=== PATIENT | male | born 1945 | race Caucasian/White ===

== ENCOUNTER 2017-10-01 00:01 | Observation (INO) | payer OTHER ==
[~2017-10-01] VITALS: Ht 175.3 cm; Wt 112.6 kg
[~2017-10-01 00:01] MED LIST: ACEBUTCAFT PO; ACEDIPPM; ACEDIPPM PO; ACET325; ACET325 PO; ASPI81CH PO; ATOR40TA PO; Antivert25 MG PO; BLOOD PRESSURE MED; BUME1 PO; CEPH500 PO; CETI5 PO; CLOB.05TC TOP; CLON.2 PO; CLOP75 PO; CYCL10 PO; DIAZ5 PO; DIBU30TO PR; DOXE25; DOXY100 PO; ENDOCET 2.5-321 EACH PO; FINA5 PO; FLUSAL1005; Fludrocortison0.1 MG PO; HYDACE5 PO; HYDCHL25; MELO7.5 PO; METO50 PO; NAPR220 PO; NAPR500 PO; NIFE60ER PO; NIFE90ER; NITR.4SL; NORT25 PO; Naproxen375 MG PO; OXYACE5T PO; PARO20; POTCHL10ER PO; PRED10 PO; PRED20 PO; PROM25 PO; Percocet 5-3251 EACH PO; Prinivil10 MG PO; RANI150 PO; RXCEPH500 PO; RXHYDACE; RXHYDACE PO; Robaxin-750750 MG PO; SIMV10 PO; SKIEMOTL12 TOP; SULTRIDS PO; TAMS.4ER PO; TRAM50 PO; Ultram50 MG PO; [UNRECOGNIZED DRUG - OTHER]
[2017-10-01 00:22] LABS: BASOPHILS ABSOLUTE AUTO 0.07 K/mm3 (0.00-0.23); BASOPHILS PERCENT AUTO 1 % (0-2); EOSINOPHILS ABSOLUTE AUTO 0.15 K/mm3 (0.00-0.68); EOSINOPHILS PERCENT AUTO 2 % (0-6); Hematocrit 41.7 % (37.0-53.0); Hemoglobin 14.4 g/dL (13.5-17.5); IMMATURE GRAN ABSOLUTE AUTO 0.08 K/mm3 (0.00-0.10); IMMATURE GRAN PERCENT AUTO 1 % (0-1); LYMPHOCYTES ABSOLUTE AUTO 2.62 K/mm3 (0.84-5.20); LYMPHOCYTES PERCENT AUTO 26 % (21-46); MONOCYTES ABSOLUTE AUTO 0.92 K/mm3 (0.16-1.47); MONOCYTES PERCENT AUTO 9 % (4-13); Mean Corpuscular HGB 32.7 pg (26.0-34.0); Mean Corpuscular HGB Conc 34.5 g/dL (31.5-36.5); Mean Corpuscular Volume 95 fL (80-100); Mean Platelet Volume 9.7 fL (9.1-12.4); NEUTROPHILS ABSOLUTE AUTO 6.21 K/mm3 (1.96-9.15); NEUTROPHILS PERCENT AUTO 62 % (41-73); Platelet Count 292 K/mm3 (150-400); RDW Coefficient Variation 12.4 % (11.7-14.2); RDW Standard Deviation 43.2 fL (35.1-46.3); White Blood Cell Count 10.05 K/mm3 (4.00-11.30)
[2017-10-01 02:40] LABS: Alanine Aminotransfer (ALT/SGP 51 U/L (12-78); Albumin, Blood 3.7 g/dL (3.4-5.0); Albumin/Globulin Ratio 0.9 (0.8-1.8); Anion Gap 9 mmol/L (6-16); Aspartate Aminotrans (AST/SGOT 33 U/L (12-37); Bilirubin, Total 0.4 mg/dL (0.1-1.0); Blood Urea Nitrogen 14 mg/dL (8-24); Bun/Creatinine Ratio 14.7 (12.0-20.0); CO2, Blood 23 mmol/L (21-32); Calcium, Blood 8.7 mg/dL (8.5-10.1); Chloride, Blood 108 mmol/L (98-108); Creatinine, Blood 0.95 mg/dL (0.60-1.20); Glomerular Filtration Rate >60 (60-); Glucose, Blood 113 mg/dL (70-99); Potassium, Blood 3.6 mmol/L (3.5-5.5); Sodium, Blood 140 mmol/L (136-145); Total Protein, Blood 7.7 g/dL (6.4-8.2)
[2017-10-01 02:41] LABS: Alk Phos 95 U/L (50-136); Troponin I <0.015 ng/mL (0.000-0.040)
== END 2017-10-01 18:31 | disposition home or self-care (01) ==
LOC: ER 00:01 → MEDS 00:02
PROVIDERS: Emergency Medicine
DX: R07.9 Chest pain, unspecified (principal); I10 Essential (primary) hypertension; E78.5 Hyperlipidemia, unspecified; R42 Dizziness and giddiness; R11.0 Nausea; R29.898 Other symptoms and signs involving the musculoskeletal system; I25.10 Atherosclerotic heart disease of native coronary artery without angina pectoris; F32.9 Major depressive disorder, single episode, unspecified; Z79.82 Long term (current) use of aspirin; Z79.01 Long term (current) use of anticoagulants; Z90.49 Acquired absence of other specified parts of digestive tract; Z79.899 Other long term (current) drug therapy; Z88.0 Allergy status to penicillin; Z88.5 Allergy status to narcotic agent; Z88.8 Allergy status to other drugs, medicaments and biological substances; Z95.5 Presence of coronary angioplasty implant and graft; Z87.891 Personal history of nicotine dependence
CPT/HCPCS: 36415; 71275; 74175; 80053; 83690; 84484; 85025; 93005; 93010; 96361; 96374; 96376; 97112; 97162; 99285; G0378; G8978; G8979; J3010; J7030; Q9967

== ENCOUNTER 2018-01-26 00:10 | Emergency (ER) | payer OTHER, SELFPAY ==
[~2018-01-26] VITALS: Ht 193 cm; Wt 104.3 kg
[2018-01-26] MEDS ORDERED: FINA5 PO (00:26)
[2018-01-26] MEDS ORDERED: NAPR500 PO (00:26)
[2018-01-26] MEDS ORDERED: TRAM50 PO (00:27)
[2018-01-26] MEDS ORDERED: ATOR40TA PO (00:28)
[2018-01-26 00:45] LABS: BASOPHILS ABSOLUTE AUTO 0.05 K/mm3 (0.00-0.23); BASOPHILS PERCENT AUTO 1 % (0-2); EOSINOPHILS PERCENT AUTO 3 % (0-6); Hemoglobin 13.8 g/dL (13.5-17.5); IMMATURE GRAN ABSOLUTE AUTO 0.05 K/mm3 (0.00-0.10); IMMATURE GRAN PERCENT AUTO 1 % (0-1); LYMPHOCYTES ABSOLUTE AUTO 2.58 K/mm3 (0.84-5.20); LYMPHOCYTES PERCENT AUTO 25 % (21-46); MONOCYTES ABSOLUTE AUTO 1.09 K/mm3 (0.16-1.47); MONOCYTES PERCENT AUTO 11 % (4-13); Mean Corpuscular HGB 32.3 pg (26.0-34.0); Mean Corpuscular HGB Conc 33.7 g/dL (31.5-36.5); Mean Corpuscular Volume 96 fL (80-100); Mean Platelet Volume 9.5 fL (9.1-12.4); NEUTROPHILS ABSOLUTE AUTO 6.24 K/mm3 (1.96-9.15); NEUTROPHILS PERCENT AUTO 61 % (41-73); Platelet Count 254 K/mm3 (150-400); RDW Coefficient Variation 12.7 % (11.7-14.2); RDW Standard Deviation 45.2 fL (35.1-46.3); Red Blood Cell Count 4.27 M/mm3 (4.30-5.90); White Blood Cell Count 10.31 K/mm3 (4.00-11.30)
[2018-01-26 01:00] LABS: Alanine Aminotransfer (ALT/SGP 57 U/L (12-78); Albumin, Blood 3.5 g/dL (3.4-5.0); Albumin/Globulin Ratio 0.9 (0.8-1.8); Alk Phos 85 U/L (50-136); Anion Gap 9 mmol/L (6-16); Aspartate Aminotrans (AST/SGOT 29 U/L (12-37); Bilirubin, Total 0.4 mg/dL (0.1-1.0); Blood Urea Nitrogen 18 mg/dL (8-24); Bun/Creatinine Ratio 17.6 (12.0-20.0); CO2, Blood 24 mmol/L (21-32); Calcium, Blood 8.5 mg/dL (8.5-10.1); Chloride, Blood 107 mmol/L (98-108); Creatinine, Blood 1.02 mg/dL (0.60-1.20); Globulin, Blood 4.1 g/dL (2.2-4.0); Glomerular Filtration Rate >60 (60-); Glucose, Blood 164 mg/dL (70-99); Potassium, Blood 3.5 mmol/L (3.5-5.5); Sodium, Blood 140 mmol/L (136-145); Total Protein, Blood 7.6 g/dL (6.4-8.2); Troponin I <0.015 ng/mL (0.000-0.040)
== END 2018-01-26 03:55 | disposition home or self-care (01) ==
LOC: ER 00:10
PROVIDERS: Emergency Medicine
DX: R07.89 Other chest pain (principal); I10 Essential (primary) hypertension; I25.10 Atherosclerotic heart disease of native coronary artery without angina pectoris; E78.00 Pure hypercholesterolemia, unspecified; E78.5 Hyperlipidemia, unspecified; Z88.1 Allergy status to other antibiotic agents; Z88.0 Allergy status to penicillin; Z91.048 Other nonmedicinal substance allergy status; Z88.5 Allergy status to narcotic agent; Z79.899 Other long term (current) drug therapy; Z79.01 Long term (current) use of anticoagulants; Z87.891 Personal history of nicotine dependence
CPT/HCPCS: 36415; 71046; 80053; 84484; 85025; 99285-25

== ENCOUNTER 2018-06-28 12:40 | Emergency (ER) | payer OTHER ==
[~2018-06-28] VITALS: Ht 185.4 cm; Wt 106.6 kg
[2018-06-28 13:10] LABS: BASOPHILS ABSOLUTE AUTO 0.09 K/mm3 (0.00-0.23); BASOPHILS PERCENT AUTO 1 % (0-2); EOSINOPHILS ABSOLUTE AUTO 0.18 K/mm3 (0.00-0.68); EOSINOPHILS PERCENT AUTO 2 % (0-6); Hematocrit 43.7 % (37.0-53.0); Hemoglobin 14.5 g/dL (13.5-17.5); IMMATURE GRAN ABSOLUTE AUTO 0.15 K/mm3 (0.00-0.10); IMMATURE GRAN PERCENT AUTO 2 % (0-1); LYMPHOCYTES ABSOLUTE AUTO 1.97 K/mm3 (0.84-5.20); LYMPHOCYTES PERCENT AUTO 22 % (21-46); MONOCYTES ABSOLUTE AUTO 0.73 K/mm3 (0.16-1.47); MONOCYTES PERCENT AUTO 8 % (4-13); Mean Corpuscular HGB 32.4 pg (26.0-34.0); Mean Corpuscular HGB Conc 33.2 g/dL (31.5-36.5); Mean Corpuscular Volume 98 fL (80-100); Mean Platelet Volume 9.8 fL (9.1-12.4); NEUTROPHILS ABSOLUTE AUTO 5.77 K/mm3 (1.96-9.15); NEUTROPHILS PERCENT AUTO 65 % (41-73); Platelet Count 253 K/mm3 (150-400); RDW Coefficient Variation 12.7 % (11.7-14.2); RDW Standard Deviation 45.3 fL (35.1-46.3); Red Blood Cell Count 4.47 M/mm3 (4.30-5.90); White Blood Cell Count 8.89 K/mm3 (4.00-11.30)
[2018-06-28 13:26] LABS: Alanine Aminotransfer (ALT/SGP 89 U/L (12-78); Albumin, Blood 3.6 g/dL (3.4-5.0); Albumin/Globulin Ratio 0.9 (0.8-1.8); Alk Phos 103 U/L (50-136); Anion Gap 9 mmol/L (6-16); Aspartate Aminotrans (AST/SGOT 65 U/L (12-37); Bilirubin, Total 0.5 mg/dL (0.1-1.0); Blood Urea Nitrogen 18 mg/dL (8-24); Bun/Creatinine Ratio 20.6 (12.0-20.0); CO2, Blood 24 mmol/L (21-32); Calcium, Blood 8.4 mg/dL (8.5-10.1); Chloride, Blood 108 mmol/L (98-108); Creatinine, Blood 0.88 mg/dL (0.60-1.20); Globulin, Blood 4.2 g/dL (2.2-4.0); Glomerular Filtration Rate >60 (60-); Glucose, Blood 139 mg/dL (70-99); Potassium, Blood 4.1 mmol/L (3.5-5.5); Sodium, Blood 141 mmol/L (136-145); Total Protein, Blood 7.8 g/dL (6.4-8.2)
[2018-06-28] MEDS ORDERED: IBUP600 PO (16:39)
[2018-06-28] MEDS ORDERED: Norco 10-325 T1 EACH PO (16:39)
== END 2018-06-28 17:43 | disposition home or self-care (01) ==
LOC: ER 12:40
PROVIDERS: Emergency Medicine
DX: S32.019A Unspecified fracture of first lumbar vertebra, initial encounter for closed fracture (principal); S32.029A Unspecified fracture of second lumbar vertebra, initial encounter for closed fracture; R51 Headache; R07.89 Other chest pain; I10 Essential (primary) hypertension; E78.5 Hyperlipidemia, unspecified; Z88.0 Allergy status to penicillin; Z88.5 Allergy status to narcotic agent; Z88.6 Allergy status to analgesic agent; Z88.1 Allergy status to other antibiotic agents; Z79.899 Other long term (current) drug therapy; Z87.891 Personal history of nicotine dependence; W01.198A Fall on same level from slipping, tripping and stumbling with subsequent striking against other object, initial encounter
CPT/HCPCS: 36415; 70450; 71260; 72125; 74177; 80053; 85025; 93005; 93010; 96361; 96374-59; 96375; 96376; 99284-25; J1170; J2405; J7030; Q9967

== ENCOUNTER 2018-07-01 09:21 | Emergency (ER) | payer OTHER ==
[~2018-07-01] VITALS: Ht 185.4 cm; Wt 106.6 kg
[~2018-07-01 09:21] MED LIST changes: +IBUP600 PO; +Norco 10-325 T1 EACH PO
[2018-07-01 10:23] LABS: BASOPHILS ABSOLUTE AUTO 0.04 K/mm3 (0.00-0.23); BASOPHILS PERCENT AUTO 0 % (0-2); EOSINOPHILS ABSOLUTE AUTO 0.18 K/mm3 (0.00-0.68); EOSINOPHILS PERCENT AUTO 2 % (0-6); Hematocrit 41.5 % (37.0-53.0); Hemoglobin 13.8 g/dL (13.5-17.5); IMMATURE GRAN ABSOLUTE AUTO 0.07 K/mm3 (0.00-0.10); IMMATURE GRAN PERCENT AUTO 1 % (0-1); LYMPHOCYTES ABSOLUTE AUTO 1.32 K/mm3 (0.84-5.20); LYMPHOCYTES PERCENT AUTO 14 % (21-46); MONOCYTES ABSOLUTE AUTO 0.83 K/mm3 (0.16-1.47); MONOCYTES PERCENT AUTO 9 % (4-13); Mean Corpuscular HGB 32.2 pg (26.0-34.0); Mean Corpuscular HGB Conc 33.3 g/dL (31.5-36.5); Mean Corpuscular Volume 97 fL (80-100); NEUTROPHILS ABSOLUTE AUTO 7.02 K/mm3 (1.96-9.15); NEUTROPHILS PERCENT AUTO 74 % (41-73); Platelet Count 247 K/mm3 (150-400); RDW Coefficient Variation 12.8 % (11.7-14.2); Red Blood Cell Count 4.28 M/mm3 (4.30-5.90); White Blood Cell Count 9.46 K/mm3 (4.00-11.30)
[2018-07-01 10:37] LABS: Anion Gap 9 mmol/L (6-16); Blood Urea Nitrogen 18 mg/dL (8-24); Bun/Creatinine Ratio 19.6 (12.0-20.0); CO2, Blood 25 mmol/L (21-32); Calcium, Blood 8.4 mg/dL (8.5-10.1); Chloride, Blood 107 mmol/L (98-108); Creatinine, Blood 0.92 mg/dL (0.60-1.20); Glomerular Filtration Rate >60 (60-); Glucose, Blood 122 mg/dL (70-99); Sodium, Blood 141 mmol/L (136-145)
== END 2018-07-01 12:11 | disposition home or self-care (01) ==
LOC: ER 09:21
PROVIDERS: Emergency Medicine
DX: S32.019D Unspecified fracture of first lumbar vertebra, subsequent encounter for fracture with routine healing (principal); S32.029D Unspecified fracture of second lumbar vertebra, subsequent encounter for fracture with routine healing; W19.XXXD Unspecified fall, subsequent encounter; Z88.0 Allergy status to penicillin; Z88.8 Allergy status to other drugs, medicaments and biological substances; Z88.1 Allergy status to other antibiotic agents; Z79.899 Other long term (current) drug therapy; Z87.891 Personal history of nicotine dependence; E78.5 Hyperlipidemia, unspecified
CPT/HCPCS: 36415; 80048; 85025; 96374; 96375; 99284-25; J2405; J3010

== ENCOUNTER 2018-07-24 14:34 | Emergency (ER) | payer OTHER ==
[~2018-07-24] VITALS: Ht 182.9 cm; Wt 104.3 kg
[2018-07-24 14:57] LABS: BASOPHILS ABSOLUTE AUTO 0.05 K/mm3 (0.00-0.23); BASOPHILS PERCENT AUTO 1 % (0-2); EOSINOPHILS ABSOLUTE AUTO 0.19 K/mm3 (0.00-0.68); EOSINOPHILS PERCENT AUTO 2 % (0-6); Hematocrit 42.8 % (37.0-53.0); Hemoglobin 14.5 g/dL (13.5-17.5); IMMATURE GRAN ABSOLUTE AUTO 0.04 K/mm3 (0.00-0.10); IMMATURE GRAN PERCENT AUTO 0 % (0-1); LYMPHOCYTES ABSOLUTE AUTO 1.64 K/mm3 (0.84-5.20); LYMPHOCYTES PERCENT AUTO 18 % (21-46); MONOCYTES PERCENT AUTO 10 % (4-13); Mean Corpuscular HGB 33.1 pg (26.0-34.0); Mean Corpuscular HGB Conc 33.9 g/dL (31.5-36.5); Mean Corpuscular Volume 98 fL (80-100); NEUTROPHILS ABSOLUTE AUTO 6.13 K/mm3 (1.96-9.15); NEUTROPHILS PERCENT AUTO 69 % (41-73); Platelet Count 276 K/mm3 (150-400); RDW Coefficient Variation 12.7 % (11.7-14.2); RDW Standard Deviation 45.6 fL (35.1-46.3); Red Blood Cell Count 4.38 M/mm3 (4.30-5.90); White Blood Cell Count 8.95 K/mm3 (4.00-11.30)
[2018-07-24 15:09] LABS: Alanine Aminotransfer (ALT/SGP 55 U/L (12-78); Albumin, Blood 3.9 g/dL (3.4-5.0); Albumin/Globulin Ratio 0.9 (0.8-1.8); Alk Phos 148 U/L (50-136); Anion Gap 7 mmol/L (6-16); Aspartate Aminotrans (AST/SGOT 51 U/L (12-37); Bilirubin, Total 0.7 mg/dL (0.1-1.0); Blood Urea Nitrogen 17 mg/dL (8-24); Bun/Creatinine Ratio 17.7 (12.0-20.0); CO2, Blood 25 mmol/L (21-32); Chloride, Blood 108 mmol/L (98-108); Creatinine, Blood 0.96 mg/dL (0.60-1.20); Globulin, Blood 4.3 g/dL (2.2-4.0); Glomerular Filtration Rate >60 (60-); Glucose, Blood 96 mg/dL (70-99); Potassium, Blood 4.2 mmol/L (3.5-5.5); Sodium, Blood 140 mmol/L (136-145); Total Protein, Blood 8.2 g/dL (6.4-8.2); Troponin I <0.015 ng/mL (0.000-0.040)
[2018-07-24 15:39] LABS: Source, Urine Clean Catch
[2018-07-24 15:46] LABS: Appearance, Urine Clear (Clear); Bilirubin, Urine Neg (Neg); Blood, Urine 2+ (Neg); Color, Urine Yellow (P-Yellow); Glucose Qualitative, Urine Neg (Neg); Ketones, Urine Neg (Neg); Leukocyte Esterase, Urine Neg (Neg); Nitrite, Urine Neg (Neg); Protein, Urine Neg (Neg); Urobilinogen, Urine NORM (Normal)
[2018-07-24 16:01] LABS: U Amphetamine Screen Not Detected; U Barbituate Screen Not Detected; U Benzodiazapine Screen Not Detected; U Buprenorphine Screen Not Detected; U Cannabinoids Screen Not Detected; U Cocaine Screen Not Detected; U Methadone Screen Not Detected; U Methamphetamine Screen Not Detected; U Opiates Screen DETECTED; U Oxycodone Screen Not Detected; U Phencyclidine Screen Not Detected; U Propoxyphene Screen Not Detected
[2018-07-24 16:06] LABS: International Normalized Ratio 1.03; Prothrombin Time Results 10.9 Sec (9.7-11.5)
[2018-07-24 16:20] LABS: Bacteria Few /hpf; Squamous Epithelial Cells Not Seen /hpf (Few); White Blood Cells, Urine Not Seen /hpf (0-5)
[2018-07-24 17:01] LABS: Influenza A Negative (NEGATIVE); Influenza B Negative (NEGATIVE)
== END 2018-07-24 18:10 | disposition home or self-care (01) ==
LOC: ER 14:34
PROVIDERS: Emergency Medicine; Physician Assistant
DX: R41.82 Altered mental status, unspecified (principal); I10 Essential (primary) hypertension; E78.5 Hyperlipidemia, unspecified; I25.10 Atherosclerotic heart disease of native coronary artery without angina pectoris; Z88.0 Allergy status to penicillin; Z88.5 Allergy status to narcotic agent; Z79.899 Other long term (current) drug therapy; Z87.891 Personal history of nicotine dependence
CPT/HCPCS: 36415; 70450; 71046; 80053; 81001; 83880; 84484; 85025; 85610; 87804; 93005; 93010; 96374; 96375; 99285-25; C9113; G0480; J2405

== ENCOUNTER 2019-02-10 23:29 | Inpatient (IN) | payer OTHER ==
[~2019-02-10] VITALS: Ht 185.4 cm; Wt 107.0 kg
[~2019-02-10 23:29] MED LIST changes: +LISI5 PO; -Prinivil10 MG PO
[2019-02-10 23:50] LABS: Calcium, Ionized (POC) 1.12 mmol/L (1.10-1.46); Chloride (POC) 102 mmol/L (98-108); Creatinine (POC) 1.1 mg/dL (0.8-1.3); Glucose (ISTAT POC) 243 mg/dL (70-99); Potassium (POC) 3.6 mmol/L (3.5-5.5); Sodium (POC) 140 mmol/L (135-148); Total CO2 (POC) 25 mmol/L (21-32)
[2019-02-11 00:02] LABS: Hematocrit 43.6 % (37.0-53.0); Hemoglobin 14.8 g/dL (13.5-17.5); Mean Corpuscular HGB 33.7 pg (26.0-34.0); Mean Corpuscular HGB Conc 33.9 g/dL (31.5-36.5); Mean Corpuscular Volume 99 fL (80-100); Mean Platelet Volume 10.1 fL (9.1-12.4); NRBC ABSOLUTE 0.02 K/mm3 (0.00-0.02); NRBC Auto 0.2 /100 WBC (0.0-0.2); Platelet Count 283 K/mm3 (150-400); RDW Coefficient Variation 12.7 % (11.7-14.2); RDW Standard Deviation 46.6 fL (35.1-46.3); Red Blood Cell Count 4.39 M/mm3 (4.30-5.90); White Blood Cell Count 10.41 K/mm3 (4.00-11.30)
[2019-02-11 00:19] LABS: International Normalized Ratio 0.98; Prothrombin Time Results 10.4 Sec (9.7-11.5)
[2019-02-11 00:22] LABS: Alanine Aminotransfer (ALT/SGP 55 U/L (12-78); Albumin, Blood 3.6 g/dL (3.4-5.0); Albumin/Globulin Ratio 0.8 (0.8-1.8); Alk Phos 96 U/L (50-136); Anion Gap 9 mmol/L (6-16); Aspartate Aminotrans (AST/SGOT 38 U/L (12-37); Bilirubin, Total 0.2 mg/dL (0.1-1.0); Blood Urea Nitrogen 11 mg/dL (8-24); Bun/Creatinine Ratio 11.2 (12.0-20.0); CHOL/HDL RATIO 5.6; CO2, Blood 26 mmol/L (21-32); Calcium, Blood 8.9 mg/dL (8.5-10.1); Chloride, Blood 106 mmol/L (98-108); Cholesterol 168 mg/dL (50-200); Creatinine, Blood 0.98 mg/dL (0.60-1.20); Globulin, Blood 4.4 g/dL (2.2-4.0); Glomerular Filtration Rate >60 (60-); Glucose, Blood 237 mg/dL (70-99); HDL Cholesterol 30 mg/dL (>39); LDL/HDL RATIO 3.4; Low Density Lipoprotein Chol 101 mg/dL (0-110); Magnesium, Blood 2.1 mg/dL (1.6-2.4); Potassium, Blood 3.6 mmol/L (3.5-5.5); Sodium, Blood 141 mmol/L (136-145); Triglycerides 183 mg/dL (30-160); Troponin I <0.015 ng/mL (0.000-0.040); Very Low Density Lipoprot Chol 36 mg/dL (6-32)
--- NOTE | 2019-02-11 02:45 | NUR ---
ADMISSION PT ARRIVES TO PCU4 FROM ER VIA GURNEY. PT IS CURRENTLY SLEEPING AND DIFFICULT TO WAKE AND STARTLES AWAKE, SWINGING ARMS WHEN SHOULDER IS SHAKEN. UPON WAKING, PT IS IRRITABLE, BUT AOX4. PT REPORTS SOME DIZZINESS WITH MOVEMENT WHEN SET UP TO EDGE OF BED FOR TRANSFER. PT IS WOBBLING AROUND AND MAKING CIRCLES WITH UPPER BODY WHEN SITTING UPRIGHT. BLOOD PRESSURE IS ELEVATED WITH SBP OF 147 WHEN TAKEN IN SITTING POSITION. PT IS LAID BACK DOWN ON GURNEY AND SLID TO HOSPITAL BED FOR SAFETY. CURRENTLY DENYING PAIN AND STATING THAT HE "JUST WANTS TO SLEEP". PT EDUCATED ON ADMIT PROCESS AND NECESSARY QUESTIONS AND ASSESSMENT THAT WILL TAKE PLACE; PT VERBALIZES UNDERSTANDING. LUNG SOUNDS ARE CLEAR IN UPPER LOBES WITH DIMINISHED BASES. PT NOTED TO HAVE L FACIAL DROOP AND MORE WEAKNESS TO L EXTREMETIES THAN R. REPORTS HX OF CVA IN 2012. PT ORIENTED TO ROOM AND CALL LIGHT SYSTEM, ENCOURAGED TO CALL FOR ASSISTANCE WITH CARE. PT ENCOURAGED TO SEND HOME ANY UNNECESSARY BELONGINGS. SON AT BEDSIDE. WILL CONTINUE WITH ADMISSION AND MONITORING. BED IN LOW POSITION, CALL LIGHT IN REACH. BED ALARM SET FOR SAFETY.
[2019-02-11] MEDS ORDERED: CETI5 PO (03:00)
[2019-02-11] MEDS ORDERED: Fludrocortison0.1 MG PO (03:01)
--- NOTE | 2019-02-11 03:45 | NUR ---
CHEST PAIN PT REPORTING PAIN TO L CHEST THAT "FEELS LIKE I AM BEING STABBED WITH A KNIFE". PT DENIES RADIATION AND REPORTS THAT NOTHING MAKES IN BETTER AND NOTHING MAKES IT WORSE. STATES THAT THE CHEST PAIN HAS "BEEN COMING AND GOING FOR THE LAST FOUR MONTHS". UNABLE TO SPECIFY IF ANYTHING MAKES IT BETTER OR WORSE AT HOME, KEEPS REPEATING THAT "IT FEELS LIKE STABBING PAIN". RATES PAIN A 5/10 ON PAIN SCALE. VSS. NITRO TABLET ADMINISTERED SL. PAIN DECREASED TO 1 WITHIN FIVE MINUTES, VITAL SIGNS REMAINED STABLE AND PT DENIED NEED FOR SECOND NITRO. STATES THAT HE "JUST WANTS TO GO TO SLEEP AND THE PAIN IS NEARLY GONE". PT QUICKLY FALLS ASLEEP. FAMILY REMAINS AT BEDSIDE. FAMILY EDUCATED ASSOCIATE PROFESSOR OF GEOLOGY LIGHT USE TO ASSIST PATIENT IF NECESSARY. WILL CONTINUE WITH MONITORING.
--- NOTE | 2019-02-11 06:10 | NUR ---
SHIFT SUMMARY PT HAS REMAINED AOX4 THROUGHOUT SHIFT. VSS. COOPERATIVE WITH CARE. NO FURTHER ACUTE EPISODES OF CHEST PAIN THROUGHOUT REMAINDER OF SHIFT. PT DENIES FURTHER DIZZINESS. PT CONTINUES TO SLEEP WITH FAMILY AT BESIDE AND ABLE TO SHIFT SELF IN BED. NO OTHER CHANGES FROM INITIAL ASSESSMENT. WILL CONTINUE TO MONITOR AND REPORT TO ONCOMING SHIFT RN. BED IN LOW POSITION, CALL LIGHT IN REACH. BED ALARM SET FOR SAFETY.
--- NOTE | 2019-02-11 07:53 | NUR ---
NURSING PCU DAYSHIFT: Assumed care of pt at approx 0700. A/O, fairly cooperative w/care, [place]. Mild general weakness noted though able to reposition and complete ADL's in bed independently. Denies any pain at rest. SKin is intact w/no breakdown noted. Tele in place, NSR, no c/o CP/pressure at this time, trace RLE edema. L/S fairly cta t/o, O2 sat upper 90's on RA, denies dyspnea. Abd mildly distended which pt states is normal, BT+, voiding using urinal. PIV x1, NS infusing at 75cc/hr x1L. Son currently at bedside. Pt and family deny any current needs or questions regarding plan of care. Awaiting rounding from PMD. Call light in reach, pt able to use w/o difficulty. Cont to monitor for any changes.
[2019-02-11 08:40] LABS: Hematocrit 38.9 % (37.0-53.0); Hemoglobin 12.9 g/dL (13.5-17.5); Mean Corpuscular HGB 33.2 pg (26.0-34.0); Mean Corpuscular HGB Conc 33.2 g/dL (31.5-36.5); Mean Corpuscular Volume 100 fL (80-100); Mean Platelet Volume 10.1 fL (9.1-12.4); Platelet Count 252 K/mm3 (150-400); RDW Coefficient Variation 12.9 % (11.7-14.2); RDW Standard Deviation 47.2 fL (35.1-46.3); Red Blood Cell Count 3.89 M/mm3 (4.30-5.90); White Blood Cell Count 9.25 K/mm3 (4.00-11.30)
[2019-02-11 08:59] LABS: CPK Creatine Kinase 38 U/L (39-308); Troponin I <0.015 ng/mL (0.000-0.040)
[2019-02-11 09:03] LABS: Alanine Aminotransfer (ALT/SGP 43 U/L (12-78); Albumin, Blood 3.1 g/dL (3.4-5.0); Albumin/Globulin Ratio 0.8 (0.8-1.8); Alk Phos 75 U/L (50-136); Anion Gap 7 mmol/L (6-16); Aspartate Aminotrans (AST/SGOT 32 U/L (12-37); Bilirubin, Total 0.4 mg/dL (0.1-1.0); Blood Urea Nitrogen 10 mg/dL (8-24); Bun/Creatinine Ratio 10.2 (12.0-20.0); CO2, Blood 26 mmol/L (21-32); Calcium, Blood 8.4 mg/dL (8.5-10.1); Chloride, Blood 109 mmol/L (98-108); Creatinine, Blood 0.98 mg/dL (0.60-1.20); Globulin, Blood 3.9 g/dL (2.2-4.0); Glomerular Filtration Rate >60 (60-); Glucose, Blood 136 mg/dL (70-99); Potassium, Blood 3.9 mmol/L (3.5-5.5); Sodium, Blood 142 mmol/L (136-145)
[2019-02-11 16:44] LABS: Source, Urine Clean Catch
--- NOTE | 2019-02-11 16:44 | NUR ---
NURSING PCU DAYSHIFT SUMMARY: No significant changes noted t/o shift. Pt continues to experience dizziness and unsteadiness w/position changes, requires assistance w/standing and ambulating. Seen by PMD, new d/o received. Eval completed by PT/OT, staff assist and walker required for ambulation. D/O for stress test received, resting portion completed this afternoon, plan for lexiscan tomorrow afternoon. Pt to be NPO after breakfast 02/12 for 2nd portion of stress test. Pt c/o short period of CP in the afternoon which resolved w/rest, no rhythm changes noted during that time. Pt has remained pleasant, in good spirits, and fairly cooperative w/care though is not compliant with calling for assistance to stand for toileting. Bed alarm remains set for safety purposes. No s/s of acute distress at this time, cont to monitor until rpt is given to NOC RN.
[2019-02-11 16:55] LABS: Bilirubin, Urine Neg (Neg); Blood, Urine 1+ (Neg); Glucose Qualitative, Urine Neg (Neg); Ketones, Urine Neg (Neg); Leukocyte Esterase, Urine Neg (Neg); Nitrite, Urine Neg (Neg); Protein, Urine Neg (Neg); Specific Gravity, Urine 1.015 (1.003-1.022); Urobilinogen, Urine NORM (Normal)
[2019-02-11 17:00] LABS: Appearance, Urine Clear (Clear); Color, Urine Yellow (P-Yellow)
[2019-02-11 17:01] LABS: Red Blood Cells, Urine 0-2 /hpf (0-2); Squamous Epithelial Cells Rare /hpf (Few); White Blood Cells, Urine Not Seen /hpf (0-5)
[2019-02-11 17:02] LABS: Bacteria Rare /hpf
[2019-02-11 17:07] LABS: CPK Creatine Kinase 39 U/L (39-308)
[2019-02-11 17:07] LABS: U Amphetamine Screen Not Detected; U Barbituate Screen Not Detected; U Benzodiazapine Screen Not Detected; U Buprenorphine Screen Not Detected; U Cannabinoids Screen Not Detected; U Cocaine Screen Not Detected; U Methadone Screen Not Detected; U Methamphetamine Screen Not Detected; U Opiates Screen Not Detected; U Oxycodone Screen Not Detected; U Phencyclidine Screen Not Detected; U Propoxyphene Screen Not Detected
[2019-02-11 17:20] LABS: Troponin I <0.015 ng/mL (0.000-0.040)
--- NOTE | 2019-02-12 05:45 | NUR ---
Shift Summary VSS this shift, pt remains alert and oriented, no changes to mentation noted. Pt cooperative with care, pleasant and cheerful this shift. Pt with impulsivity and non compliance with instruction to call before standing; pt setting off bed alarm this shift. Pt needs assistance with voiding with urinal at bedside. Pt ambulated to bathroom with FWW this shift with moderately steady gait. Pt cleaned with bedbath this shift. Sleeping with CPAP with home settings, independant with CPAP. Pt with no CP this shift. Denies pain in general. denies SOB. Pt in no apparent sign of distress. Plan is to have pt NPO after breakfast, pt aware. Provider called once this shift for tylenol order d/t pt complaints of headache. Tylenon 650mg x1 ordered; pain relieved. Bed alarm on, call light in reach, bed is low and locked. Will continue monitoring and providing care per orders until day RN assumes care.
--- NOTE | 2019-02-12 08:05 | NUR ---
NURSING PCU DAYSHIFT: Assumed care of pt at approx 0700. A/O, [place], very pleasant and fairly cooperative w/care. Denies any pain/discomfort at rest. Skin is fragile though intact w/no breakdown noted. Transfers/ambulates w/one staff assist. Tele in place, NSR w/BBB, BP stable, no noted edema, no c/o CP/pressure. L/S cta t/o, O2 sat mid 90's on RA, denies dyspnea, no noted cough. Abd mildly distended which pt states is normal, BT+, voiding w/o difficulty. 20g PIV present in RAC, s/l. Pt denies any current needs or questions regarding plan of care. Son resting at bedside. Bed alarm set for safety purposes. Plan for second portion of stress test this afternoon, NPO after breakfast. Awaiting rounding from PMD, call light in reach, cont to monitor for any changes.
--- NOTE | 2019-02-12 18:14 | NUR ---
NURSING PCU DAYSHIFT SUMMARY: VS remained stable t/o the shift, respiratory and cardiac status unchanged. Pt NPO after breakfast for stress test which was completed at approx 1430. Pt tolerated well. Results received, call placed to PMD to review imaging report results. No c/o CP t/o shift. Orthostatic VS completed, SBP 111 while lying, 139 while sitting, and 144 while standing. HR remained 73-83 during orthos. When standing pt began to experience dizziness and needed to sit back on edge of bed. Recovered quickly. Pt spent majority of the shift visiting w/friends/family. Remains in good spirits. No s/s of acute distress at this time. Call light in reach though bed alarm set for patient safety. Cont to monitor until rpt is given to BYRON RN.
--- NOTE | 2019-02-13 04:38 | NUR ---
SHIFT SUMMARY: CARDIOLOGY TO CONSULT THIS AM, PATIENT VSS, CALL LIGHT WITHIN REACH, NO FLUIDS OR FOOD SINCE 0000. BED LOW AND LOCKED.
--- NOTE | 2019-02-13 16:46 | NUR ---
SHIFT SUMMARY No acute changes this shift. Pt with VSS, although orthostatic bp positive. Pt asymptomatic, not dizzy or lightheaded with little ambulation. pt working with PT and OT this shift, pt complaint of mild dizziness at the very end of both exercises. Pt sat down, and dizziness resolved. Pt remains alert and oriented although impulsive, bed alarm on and pt education multiple times this shift about safety and need to call before using urinal at bedside. Pt complaint of mild headache at appros 1630, MD Rodriguez called and orders recieved for tylenol. Pt with family at bedside for majority of this shift. Pt pleasant, calm and cooperative with care. No events on tele, pt with no CP or pressure. Plan, per dr. mukherjee is to monitor BP with new BPmedications introduced this shift. Possible DC in the AM if pt is asx. Pt in no apparent sign of distress, able to make needs known, conversing appropriately. Pt expressing frustration to this RN about "being in the hosptial this long". pt verbalized understanding of need to monitor and is calm and compliant. Family is supportive of pt and involved in care. Will continue to monitor and provide care per orders until change of shift.
--- NOTE | 2019-02-14 04:32 | NUR ---
SHIFT SUMMARY: PATIENT VSS, NO CHANGES OVERNIGHT, BED LOW AND LOCKED, CALL LIGHT WITHIN REACH AND BED EXIT ALARM ON.
--- NOTE | 2019-02-14 07:56 | NUR ---
ASSUMED CARE REPORT FROM ERIC LIZARRAGA. ORTHOSTATIC BP'S TAKEN. SEE ELECTRONIC CHARTING. TEACHING ABOUT TAKING HIS BP DAILY BEFORE TAKING HIS BP MEDS
--- NOTE | 2019-02-14 09:00 | NUR ---
PATIENT SLEEPING WITH CPAP MASK ON. AM MEDS HELD UNTIL HE IS AWAKE
--- NOTE | 2019-02-14 09:54 | NUR ---
PHYSICAL THERAPY IN. AMBULATED PATIENT
--- NOTE | 2019-02-14 11:01 | NUR ---
PATIENT AMBULATING IN [place] WITH WALKER DENIES ANY DIZZINESS
[2019-02-14] MEDS ORDERED: ASPI81CH PO (11:36)
[2019-02-14] MEDS ORDERED: Isosorbide Mono30 MG PO (11:36)
[2019-02-14] MEDS ORDERED: METO25ER PO (11:38)
[2019-02-14] MEDS ORDERED: NITR.4SL SL (11:39)
--- NOTE | 2019-02-14 11:54 | NUR ---
PATIENT DISCHARGED. PIV REMOVED FOR SHOWER. INSTRUCTIONS ABOUT BP MEDS GIVEN AGAIN.
--- NOTE | 2019-02-14 12:35 | NUR ---
DISCHARGE INSTRUCTIONS GIVEN AND ACKNOWLEDGED BY SON. PATIENT AMBULATED OUT USING WALKER WITH BAD CREDIT COLLECTOR WALKING ALONG SIDE. SON WILL PULL CAR AROUND TO PATIENT LABOR DELIVERY RN. SON WILL CALL PCU AND ASK FOR THIS RN OR MATERIAL WORKER IF HE HAS ANY QUESTIONS.
== END 2019-02-14 12:53 | disposition home or self-care (01) | DRG 305 ==
LOC: ER 23:29 → PCU 23:30
PROVIDERS: Emergency Medicine; ADMIT Internal Medicine
DX: I16.0 Hypertensive urgency (principal); I42.9 Cardiomyopathy, unspecified; I10 Essential (primary) hypertension; G89.29 Other chronic pain; M54.9 Dorsalgia, unspecified; E78.5 Hyperlipidemia, unspecified; G47.33 Obstructive sleep apnea (adult) (pediatric); Z87.891 Personal history of nicotine dependence; I25.10 Atherosclerotic heart disease of native coronary artery without angina pectoris; Z95.5 Presence of coronary angioplasty implant and graft; N40.0 Benign prostatic hyperplasia without lower urinary tract symptoms; Z79.02 Long term (current) use of antithrombotics/antiplatelets; E86.0 Dehydration; R94.39 Abnormal result of other cardiovascular function study; J44.9 Chronic obstructive pulmonary disease, unspecified; Z79.82 Long term (current) use of aspirin
CPT/HCPCS: 36415; 51798; 71275; 74175; 78452; 80047; 80053; 80061; 81001; 82550; 82947; 83036; 83735; 83880; 84484; 85014; 85027; 85610; 85730; 86850; 86900; 86901; 93005; 93010; 93017; 93306; 94760; 94762; 96361; 96372; 96374-59; 97110; 97112; 97161; 97166; 97530; 97535; 99285-25; A9270; A9500; G0378; J0706; J1650; J2405; J2785; J7030; Q9967

== ENCOUNTER 2019-02-19 13:33 | Emergency (ER) | payer OTHER ==
[~2019-02-19] VITALS: Ht 185.4 cm; Wt 104.3 kg
[~2019-02-19 13:33] MED LIST changes: +Isosorbide Mono30 MG PO; +METO25ER PO; +NITR.4SL SL
[2019-02-19 13:59] LABS: BASOPHILS ABSOLUTE AUTO 0.05 K/mm3 (0.00-0.23); BASOPHILS PERCENT AUTO 0 % (0-2); EOSINOPHILS ABSOLUTE AUTO 0.17 K/mm3 (0.00-0.68); EOSINOPHILS PERCENT AUTO 1 % (0-6); Hematocrit 42.1 % (37.0-53.0); Hemoglobin 13.9 g/dL (13.5-17.5); IMMATURE GRAN ABSOLUTE AUTO 0.15 K/mm3 (0.00-0.10); IMMATURE GRAN PERCENT AUTO 1 % (0-1); LYMPHOCYTES ABSOLUTE AUTO 1.16 K/mm3 (0.84-5.20); LYMPHOCYTES PERCENT AUTO 8 % (21-46); MONOCYTES ABSOLUTE AUTO 0.85 K/mm3 (0.16-1.47); MONOCYTES PERCENT AUTO 6 % (4-13); Mean Corpuscular HGB 33.3 pg (26.0-34.0); Mean Corpuscular Volume 101 fL (80-100); NEUTROPHILS PERCENT AUTO 83 % (41-73); Platelet Count 277 K/mm3 (150-400); RDW Coefficient Variation 13.3 % (11.7-14.2); RDW Standard Deviation 49.2 fL (35.1-46.3); Red Blood Cell Count 4.17 M/mm3 (4.30-5.90); White Blood Cell Count 13.88 K/mm3 (4.00-11.30)
[2019-02-19 14:23] LABS: Troponin I <0.015 ng/mL (0.000-0.040)
[2019-02-19 14:27] LABS: Alanine Aminotransfer (ALT/SGP 48 U/L (12-78); Albumin, Blood 3.6 g/dL (3.4-5.0); Albumin/Globulin Ratio 0.8 (0.8-1.8); Alk Phos 96 U/L (50-136); Anion Gap 7 mmol/L (6-16); Aspartate Aminotrans (AST/SGOT 30 U/L (12-37); Bilirubin, Total 0.4 mg/dL (0.1-1.0); Blood Urea Nitrogen 16 mg/dL (8-24); Bun/Creatinine Ratio 16.7 (12.0-20.0); CO2, Blood 24 mmol/L (21-32); Calcium, Blood 8.7 mg/dL (8.5-10.1); Chloride, Blood 110 mmol/L (98-108); Creatinine, Blood 0.96 mg/dL (0.60-1.20); Globulin, Blood 4.3 g/dL (2.2-4.0); Glomerular Filtration Rate >60 (60-); Glucose, Blood 112 mg/dL (70-99); Sodium, Blood 141 mmol/L (136-145); Total Protein, Blood 7.9 g/dL (6.4-8.2)
== END 2019-02-19 16:30 | disposition home or self-care (01) ==
LOC: ER 13:33
PROVIDERS: Emergency Medicine
DX: J20.9 Acute bronchitis, unspecified (principal); G44.89 Other headache syndrome; I10 Essential (primary) hypertension; I25.10 Atherosclerotic heart disease of native coronary artery without angina pectoris; E78.5 Hyperlipidemia, unspecified; N40.0 Benign prostatic hyperplasia without lower urinary tract symptoms; F17.200 Nicotine dependence, unspecified, uncomplicated; Z88.0 Allergy status to penicillin; Z88.1 Allergy status to other antibiotic agents; Z91.048 Other nonmedicinal substance allergy status; Z88.5 Allergy status to narcotic agent; Z88.8 Allergy status to other drugs, medicaments and biological substances; Z79.899 Other long term (current) drug therapy; Z79.02 Long term (current) use of antithrombotics/antiplatelets; Z79.82 Long term (current) use of aspirin
CPT/HCPCS: 36415; 71046; 80053; 84484; 85025; 93005; 93010; 94640; 99285-25; A9270

== ENCOUNTER 2019-04-01 11:02 | Observation (INO) | payer OTHER ==
[~2019-04-01] VITALS: Ht 185.4 cm; Wt 90.7 kg
[~2019-04-01 11:02] MED LIST changes: +Aspirin EC81 MG PO; +TERB250 PO; +ZYRTEC10 M2 PO
[2019-04-01 11:46] LABS: BASOPHILS ABSOLUTE AUTO 0.04 K/mm3 (0.00-0.23); BASOPHILS PERCENT AUTO 0 % (0-2); EOSINOPHILS ABSOLUTE AUTO 0.33 K/mm3 (0.00-0.68); EOSINOPHILS PERCENT AUTO 4 % (0-6); Hematocrit 43.2 % (37.0-53.0); Hemoglobin 14.3 g/dL (13.5-17.5); IMMATURE GRAN PERCENT AUTO 1 % (0-1); LYMPHOCYTES ABSOLUTE AUTO 1.71 K/mm3 (0.84-5.20); LYMPHOCYTES PERCENT AUTO 18 % (21-46); MONOCYTES ABSOLUTE AUTO 0.79 K/mm3 (0.16-1.47); MONOCYTES PERCENT AUTO 8 % (4-13); Mean Corpuscular HGB 33.3 pg (26.0-34.0); Mean Corpuscular HGB Conc 33.1 g/dL (31.5-36.5); Mean Corpuscular Volume 101 fL (80-100); NEUTROPHILS ABSOLUTE AUTO 6.48 K/mm3 (1.96-9.15); NEUTROPHILS PERCENT AUTO 69 % (41-73); Platelet Count 289 K/mm3 (150-400); RDW Coefficient Variation 13.1 % (11.7-14.2); RDW Standard Deviation 48.9 fL (35.1-46.3); Troponin I <0.015 ng/mL (0.000-0.040); White Blood Cell Count 9.45 K/mm3 (4.00-11.30)
[2019-04-01 11:47] LABS: Alanine Aminotransfer (ALT/SGP 48 U/L (12-78); Albumin, Blood 3.7 g/dL (3.4-5.0); Albumin/Globulin Ratio 0.8 (0.8-1.8); Alk Phos 100 U/L (50-136); Anion Gap 7 mmol/L (6-16); Aspartate Aminotrans (AST/SGOT 36 U/L (12-37); Bilirubin, Total 0.6 mg/dL (0.1-1.0); Blood Urea Nitrogen 17 mg/dL (8-24); Bun/Creatinine Ratio 16.8 (12.0-20.0); CO2, Blood 25 mmol/L (21-32); Calcium, Blood 8.9 mg/dL (8.5-10.1); Chloride, Blood 107 mmol/L (98-108); Creatinine, Blood 1.01 mg/dL (0.60-1.20); Globulin, Blood 4.6 g/dL (2.2-4.0); Glomerular Filtration Rate >60 (60-); Glucose, Blood 120 mg/dL (70-99); Potassium, Blood 3.9 mmol/L (3.5-5.5); Sodium, Blood 139 mmol/L (136-145); Total Protein, Blood 8.3 g/dL (6.4-8.2)
--- NOTE | 2019-04-01 18:01 | NUR ---
ARRIVES TO FLOOR AT 1730. GOTTEN INTO BED AFTER PANTS AND SHOES OFF.DINNER TRAY CAME UP WITH PATIENT. PATIENT STARTED EATTING AND HEN VOMITED. WHEN ASKED IF HAD VOMITED PRIOR TO ADMIT STS "ONLY WHEN i HAD C.P." ASKED IF HAS C.P. STS LEFT SIDED CHEST PAIN, SHARP IN NATURE RADIATING TO LEFT ARM CAUSING NUMBNESS AND UP TO LEFT SIDE OF NECK. RAPID ALLED 174. CALLED 174 WITH HOSPITALIST SAYING HE WILL CALL CHRISTIANO TO SEE. B.P @ 1749 197/139. PAIN WAS ORIGINALLY 5(1-10) WHEN VOMITED AND THEN 8(1-10) RIGHT BEFORE FIRST NTG. PAIN 6(1-10) AFTER FIRST NTG. CHRISTIANO STERN STAINED GLASS JOINER HRE AT 1755. TELE ON AND B.P. 184/110. PATIENT STILL VOMITING. 1805 B.P. 192/109- 91
[2019-04-01] MEDS ORDERED: Fludrocortison0.1 MG PO (18:30)
[2019-04-01] MEDS ORDERED: IBUP600 PO (18:31)
[2019-04-01] MEDS ORDERED: NAPR500 PO (18:32)
[2019-04-01] MEDS ORDERED: Norco 10-325 T1 EACH PO (18:32)
[2019-04-01] MEDS ORDERED: TRAM50 PO (18:33)
--- NOTE | 2019-04-01 19:09 | NUR ---
PATIENT STS FEELING MUCH BETTER. CHEST PAIN DOWN TO 1(1-10). NO ABNORMAL PAIN LEFT ARM OR NECK. SIPPING ON SERA MIST. ON TELE. ON 2 LPM.REPORT TO CODEY
--- NOTE | 2019-04-01 20:08 | NUR ---
CONSULT CALLED INTO DR RED (CARDIOLOGY). ACKNOWLEDGED INFORMATION RE TROPS, SYNCOPE, VS, CP WITH 2 DOSES OF NITRO. ALSO ON MED TELE - NSR AT 63 - STATED WOULD SEE PT IN THE AM. MENTIONED POSSIBLE STRESS TEST, STATED NOT TO CHANGE HIS MEDS OF THIS TIME, WOULD ASSESS IT IN THE AM.
--- NOTE | 2019-04-02 03:56 | NUR ---
Pt was admitted yesterday for syncope. VSS. continuous pulse ox maintained. Assisted up to void as needed to prevent falls. No noted acute distress since shift commence. No complaints of chest pain or unusual discomfort, (has some arthritic pain). C-pap continues. Call light in reach. (dado operator) to see in the AM.
[2019-04-02 05:23] LABS: BASOPHILS ABSOLUTE AUTO 0.05 K/mm3 (0.00-0.23); BASOPHILS PERCENT AUTO 1 % (0-2); EOSINOPHILS ABSOLUTE AUTO 0.33 K/mm3 (0.00-0.68); EOSINOPHILS PERCENT AUTO 4 % (0-6); Hematocrit 36.5 % (37.0-53.0); Hemoglobin 12.1 g/dL (13.5-17.5); IMMATURE GRAN ABSOLUTE AUTO 0.06 K/mm3 (0.00-0.10); IMMATURE GRAN PERCENT AUTO 1 % (0-1); LYMPHOCYTES ABSOLUTE AUTO 1.95 K/mm3 (0.84-5.20); LYMPHOCYTES PERCENT AUTO 21 % (21-46); MONOCYTES ABSOLUTE AUTO 0.88 K/mm3 (0.16-1.47); MONOCYTES PERCENT AUTO 10 % (4-13); Mean Corpuscular HGB Conc 33.2 g/dL (31.5-36.5); Mean Corpuscular Volume 100 fL (80-100); Mean Platelet Volume 9.8 fL (9.1-12.4); NEUTROPHILS ABSOLUTE AUTO 5.91 K/mm3 (1.96-9.15); NEUTROPHILS PERCENT AUTO 64 % (41-73); Platelet Count 259 K/mm3 (150-400); RDW Coefficient Variation 12.8 % (11.7-14.2); RDW Standard Deviation 46.5 fL (35.1-46.3); Red Blood Cell Count 3.67 M/mm3 (4.30-5.90); White Blood Cell Count 9.18 K/mm3 (4.00-11.30)
[2019-04-02 05:40] LABS: Alanine Aminotransfer (ALT/SGP 38 U/L (12-78); Albumin, Blood 3.1 g/dL (3.4-5.0); Albumin/Globulin Ratio 0.8 (0.8-1.8); Alk Phos 84 U/L (50-136); Anion Gap 7 mmol/L (6-16); Aspartate Aminotrans (AST/SGOT 29 U/L (12-37); Bilirubin, Total 0.4 mg/dL (0.1-1.0); Blood Urea Nitrogen 17 mg/dL (8-24); Bun/Creatinine Ratio 15.9 (12.0-20.0); CO2, Blood 26 mmol/L (21-32); Calcium, Blood 8.3 mg/dL (8.5-10.1); Chloride, Blood 107 mmol/L (98-108); Creatinine, Blood 1.07 mg/dL (0.60-1.20); Globulin, Blood 3.9 g/dL (2.2-4.0); Glomerular Filtration Rate >60 (60-); Glucose, Blood 96 mg/dL (70-99); Potassium, Blood 3.7 mmol/L (3.5-5.5); Sodium, Blood 140 mmol/L (136-145)
--- NOTE | 2019-04-02 14:34 | NUR ---
PT DENIES ANY DIZZINESS OR CHEST PAIN THIS SHIFT. HE HAS BEEN A/O X 4 AND COOPERATIVE WITH CARE. DAUGHTER AND SON HAVE BEEN AT BEDSIDE ALL DAY. PER KNOT CUTTER PT HEART RHYTHM HAS BEEN AT [facility] IN THE 60'S. MARE GAMEZ ORDERED AN EVENT MONITOR PANEL FOR OUTPATIENT AND TO FOLLOW UP WITH CARDIOLOGY WITHIN 2 WEEKS. ORDER WAS CALLED IN TO [facility] AND THEY CAME AND PLACED ON PT. IV WAS DCD WITH NO ISSUE. ALL MEDICATIONS WERE FAXED TO [facility] PER PT REQUEST AND REVIEWED WITH PT AND HIS SON AND DAUGHTER. ALL QUESTIONS WERE ANSWERED. FOLLOW UP APPTS WERE SCHEDULED WITH CARDIOLOGY AND PCP AND REVIEWED ALONG WITH DCD INSTRUCTIONS. ALL PERSONAL BELONGINGS SENT WITH PT. PT STABLE UPON DC.
== END 2019-04-02 14:35 | disposition home or self-care (01) ==
LOC: ER 11:02 → MEDS 11:03 → ENPENDDIS 04-02 13:40 → MEDS 04-02 14:35
PROVIDERS: Emergency Medicine; Nurse Practitioner Acute Care; ADMIT Hospitalist
DX: R55 Syncope and collapse (principal); I25.10 Atherosclerotic heart disease of native coronary artery without angina pectoris; G47.33 Obstructive sleep apnea (adult) (pediatric); N40.0 Benign prostatic hyperplasia without lower urinary tract symptoms; F32.9 Major depressive disorder, single episode, unspecified; E78.5 Hyperlipidemia, unspecified; I10 Essential (primary) hypertension; F17.210 Nicotine dependence, cigarettes, uncomplicated; Z79.02 Long term (current) use of antithrombotics/antiplatelets; Z95.5 Presence of coronary angioplasty implant and graft; Z99.89 Dependence on other enabling machines and devices; Z88.0 Allergy status to penicillin; Z88.5 Allergy status to narcotic agent; Z88.8 Allergy status to other drugs, medicaments and biological substances; Z79.82 Long term (current) use of aspirin; Z79.899 Other long term (current) drug therapy
CPT/HCPCS: 36415; 71045; 71260; 80053; 83880; 84484; 85025; 85379; 93005; 93010; 93880; 94660; 96372; 96374-59; 96375; 99285-25; G0378; J1650; J1885; J2405; Q9967

== ENCOUNTER 2019-04-06 23:20 | Emergency (ER) | payer OTHER ==
[~2019-04-06] VITALS: Ht 185.4 cm; Wt 95.2 kg
[2019-04-06 23:38] LABS: BASOPHILS ABSOLUTE AUTO 0.04 K/mm3 (0.00-0.23); BASOPHILS PERCENT AUTO 0 % (0-2); EOSINOPHILS ABSOLUTE AUTO 0.34 K/mm3 (0.00-0.68); EOSINOPHILS PERCENT AUTO 4 % (0-6); Hematocrit 38.4 % (37.0-53.0); Hemoglobin 12.7 g/dL (13.5-17.5); IMMATURE GRAN ABSOLUTE AUTO 0.06 K/mm3 (0.00-0.10); IMMATURE GRAN PERCENT AUTO 1 % (0-1); LYMPHOCYTES PERCENT AUTO 23 % (21-46); MONOCYTES ABSOLUTE AUTO 0.83 K/mm3 (0.16-1.47); MONOCYTES PERCENT AUTO 9 % (4-13); Mean Corpuscular HGB 33.7 pg (26.0-34.0); Mean Corpuscular HGB Conc 33.1 g/dL (31.5-36.5); Mean Corpuscular Volume 102 fL (80-100); Mean Platelet Volume 9.8 fL (9.1-12.4); NEUTROPHILS ABSOLUTE AUTO 6.13 K/mm3 (1.96-9.15); NEUTROPHILS PERCENT AUTO 64 % (41-73); Platelet Count 287 K/mm3 (150-400); RDW Coefficient Variation 12.6 % (11.7-14.2); RDW Standard Deviation 47.5 fL (35.1-46.3); Red Blood Cell Count 3.77 M/mm3 (4.30-5.90)
[2019-04-07 00:02] LABS: Alanine Aminotransfer (ALT/SGP 45 U/L (12-78); Albumin, Blood 3.4 g/dL (3.4-5.0); Albumin/Globulin Ratio 0.8 (0.8-1.8); Alk Phos 91 U/L (50-136); Anion Gap 9 mmol/L (6-16); Aspartate Aminotrans (AST/SGOT 32 U/L (12-37); Bilirubin, Total 0.4 mg/dL (0.1-1.0); Blood Urea Nitrogen 15 mg/dL (8-24); Bun/Creatinine Ratio 14.7 (12.0-20.0); CO2, Blood 23 mmol/L (21-32); Calcium, Blood 8.7 mg/dL (8.5-10.1); Chloride, Blood 110 mmol/L (98-108); Creatinine, Blood 1.02 mg/dL (0.60-1.20); Globulin, Blood 4.4 g/dL (2.2-4.0); Glomerular Filtration Rate >60 (60-); Glucose, Blood 117 mg/dL (70-99); Potassium, Blood 3.6 mmol/L (3.5-5.5); Sodium, Blood 142 mmol/L (136-145); Total Protein, Blood 7.8 g/dL (6.4-8.2); Troponin I <0.015 ng/mL (0.000-0.040)
== END 2019-04-07 02:43 | disposition home or self-care (01) ==
LOC: ER 23:20
PROVIDERS: Emergency Medicine
DX: R07.9 Chest pain, unspecified (principal); I10 Essential (primary) hypertension; E78.5 Hyperlipidemia, unspecified; F17.200 Nicotine dependence, unspecified, uncomplicated; Z88.1 Allergy status to other antibiotic agents; Z88.0 Allergy status to penicillin; Z91.048 Other nonmedicinal substance allergy status; Z88.8 Allergy status to other drugs, medicaments and biological substances; Z79.899 Other long term (current) drug therapy; Z79.02 Long term (current) use of antithrombotics/antiplatelets; Z79.82 Long term (current) use of aspirin
CPT/HCPCS: 80053; 84484; 85025; 93005; 93010; 96374; 99285-25; J2270

== ENCOUNTER 2020-03-17 16:34 | Inpatient (IN) | payer OTHER ==
[~2020-03-17] VITALS: Ht 185.4 cm; Wt 100.9 kg
[~2020-03-17 16:34] MED LIST changes: +Flurbiprofen100 MG PO
[2020-03-17 17:26] LABS: BASOPHILS ABSOLUTE AUTO 0.07 K/mm3 (0.00-0.23); BASOPHILS PERCENT AUTO 0 % (0-2); EOSINOPHILS ABSOLUTE AUTO 0.19 K/mm3 (0.00-0.68); EOSINOPHILS PERCENT AUTO 1 % (0-6); Hematocrit 39.3 % (37.0-53.0); Hemoglobin 13.2 g/dL (13.5-17.5); IMMATURE GRAN ABSOLUTE AUTO 0.16 K/mm3 (0.00-0.10); IMMATURE GRAN PERCENT AUTO 1 % (0-1); LYMPHOCYTES ABSOLUTE AUTO 1.33 K/mm3 (0.84-5.20); LYMPHOCYTES PERCENT AUTO 8 % (21-46); MONOCYTES PERCENT AUTO 5 % (4-13); Mean Corpuscular HGB 33.5 pg (26.0-34.0); Mean Corpuscular HGB Conc 33.6 g/dL (31.5-36.5); Mean Corpuscular Volume 100 fL (80-100); Mean Platelet Volume 10.3 fL (9.1-12.4); NEUTROPHILS ABSOLUTE AUTO 14.63 K/mm3 (1.96-9.15); NEUTROPHILS PERCENT AUTO 85 % (41-73); Platelet Count 295 K/mm3 (150-400); RDW Standard Deviation 47.8 fL (35.1-46.3); Red Blood Cell Count 3.94 M/mm3 (4.30-5.90); White Blood Cell Count 17.18 K/mm3 (4.00-11.30)
[2020-03-17 17:34] LABS: Alanine Aminotransfer (ALT/SGP 48 U/L (12-78); Albumin, Blood 3.6 g/dL (3.4-5.0); Albumin/Globulin Ratio 0.8 (0.8-1.8); Alk Phos 79 U/L (50-136); Anion Gap 9 mmol/L (6-16); Aspartate Aminotrans (AST/SGOT 34 U/L (12-37); Bilirubin, Total 0.5 mg/dL (0.1-1.0); Blood Urea Nitrogen 16 mg/dL (8-24); Bun/Creatinine Ratio 16.1 (12.0-20.0); CO2, Blood 22 mmol/L (21-32); Chloride, Blood 112 mmol/L (98-108); Creatinine, Blood 0.99 mg/dL (0.60-1.20); Globulin, Blood 4.3 g/dL (2.2-4.0); Glomerular Filtration Rate >60 (60-); Glucose, Blood 103 mg/dL (70-99); Potassium, Blood 3.8 mmol/L (3.5-5.5); Sodium, Blood 143 mmol/L (136-145); Total Protein, Blood 7.9 g/dL (6.4-8.2)
[2020-03-17 17:43] LABS: International Normalized Ratio 1.07; Prothrombin Time Results 11.4 Sec (9.7-11.5)
[2020-03-17 18:09] LABS: Source, Urine Catheter
[2020-03-17 18:13] LABS: Bilirubin, Urine Neg (Neg); Blood, Urine 2+ (Neg); Glucose Qualitative, Urine Neg (Neg); Ketones, Urine 1+ (Neg); Leukocyte Esterase, Urine Neg (Neg); Nitrite, Urine Neg (Neg); Protein, Urine 1+ (Neg); Specific Gravity, Urine 1.025 (1.003-1.022); Urobilinogen, Urine NORM (Normal)
[2020-03-17 18:23] LABS: Appearance, Urine Clear (Clear); Color, Urine Amber (P-Yellow)
[2020-03-17 18:25] LABS: Mucus Light (0-Heavy); White Blood Cells, Urine 0-2 /hpf (0-5)
[2020-03-17 18:26] LABS: Bacteria Few /hpf; Red Blood Cells, Urine 0-2 /hpf (0-2); Squamous Epithelial Cells Rare /hpf (Few)
[2020-03-17] MEDS ORDERED: ZYRTEC10 M2 PO (18:51)
[2020-03-17] MEDS ORDERED: HYDHCL25 PO (18:53)
--- NOTE | 2020-03-18 04:24 | NUR ---
SHIFT SUMMARY PT NEW ADMIT THIS NOC SHIFT. AAOX4/KALTAG. NPO. PPP, DENIES N/T BLE, MOVES TOES WELL. ORTHO CONSULT TODAY. DISCOMFORT DECREASED WITH 1 NORCO Q6H + 25mcg FENTANYL Q4H. NO NAUSEA/EMESIS. IVF PER ORDERS. SURGICAL PACKET ON FRONT OF CHART. PT EDUCATED REGARDING TX + QUESTIONS ANSWERED. ORIENTED TO ROOM + CALL LIGHT USE. PT CURRENTLY RESTING WITH CALL LIGHT IN REACH.
[2020-03-18 06:20] LABS: BASOPHILS ABSOLUTE AUTO 0.04 K/mm3 (0.00-0.23); BASOPHILS PERCENT AUTO 0 % (0-2); EOSINOPHILS ABSOLUTE AUTO 0.15 K/mm3 (0.00-0.68); EOSINOPHILS PERCENT AUTO 1 % (0-6); Hemoglobin 11.7 g/dL (13.5-17.5); IMMATURE GRAN ABSOLUTE AUTO 0.06 K/mm3 (0.00-0.10); IMMATURE GRAN PERCENT AUTO 1 % (0-1); LYMPHOCYTES PERCENT AUTO 18 % (21-46); MONOCYTES ABSOLUTE AUTO 0.85 K/mm3 (0.16-1.47); MONOCYTES PERCENT AUTO 8 % (4-13); Mean Corpuscular HGB 32.8 pg (26.0-34.0); Mean Corpuscular HGB Conc 32.5 g/dL (31.5-36.5); Mean Corpuscular Volume 101 fL (80-100); NEUTROPHILS ABSOLUTE AUTO 7.62 K/mm3 (1.96-9.15); NEUTROPHILS PERCENT AUTO 72 % (41-73); Platelet Count 247 K/mm3 (150-400); RDW Coefficient Variation 13.2 % (11.7-14.2); RDW Standard Deviation 49.5 fL (35.1-46.3); Red Blood Cell Count 3.57 M/mm3 (4.30-5.90); White Blood Cell Count 10.62 K/mm3 (4.00-11.30)
[2020-03-18 06:33] LABS: Anion Gap 5 mmol/L (6-16); Blood Urea Nitrogen 17 mg/dL (8-24); Bun/Creatinine Ratio 17.4 (12.0-20.0); CO2, Blood 27 mmol/L (21-32); Calcium, Blood 8.4 mg/dL (8.5-10.1); Chloride, Blood 110 mmol/L (98-108); Creatinine, Blood 0.98 mg/dL (0.60-1.20); Glomerular Filtration Rate >60 (60-); Glucose, Blood 125 mg/dL (70-99); Potassium, Blood 3.7 mmol/L (3.5-5.5); Sodium, Blood 142 mmol/L (136-145)
--- NOTE | 2020-03-18 14:15 | NUR ---
SURGERY SURGERY CREW IN TO TAKE PT TO THE OR. PT IS SLEEPY AT THIS TIME DUE TO PAIN MEDICATIONS BUT WILL WAKE WITH STIMULATION. RESP UNLABORED
--- NOTE | 2020-03-18 14:44 | NUR ---
ASSUMED CARE PT CURRENTLY IN
--- NOTE | 2020-03-18 18:53 | NUR ---
PT RETURNED FROM/SHIFT SUMMARY PT A&O X3, PT GARBLED SPEECH BUT ANSWERS QUESTIONS WHEN PROMPTED. PT'S SON AT BED SIDE. PT HAS SL IN RIGHT FOREARM WITH NS INFUSING AT 75HR, MORTON CATH IN PLACE DRAINING YELLOW URINE. PT HAS AQUACEL DRESSING IN PLACE ON RIGHT HIP. PT TOLORATED SIPS OF WATER WELL. PT MEDICATED X1 FOR PAIN WITH IV PAIN MEDS. PT HAS BED ALARM ON AND CALL LIGHT WITH IN REACH WILL REPORT TO BYRON REYES.
--- NOTE | 2020-03-18 23:00 | NUR ---
ASSUMED CARE AT THIS TIME. RECIEVED REPORT FROM NURSE MARINO. PATIENT IS SITTING COMFORTABLY IN BED AT THIS TIME. CALL LIGHT IS WITHIN REACH.
[2020-03-19 04:05] LABS: BASOPHILS ABSOLUTE AUTO 0.02 K/mm3 (0.00-0.23); BASOPHILS PERCENT AUTO 0 % (0-2); EOSINOPHILS PERCENT AUTO 0 % (0-6); Hematocrit 27.3 % (37.0-53.0); Hemoglobin 8.9 g/dL (13.5-17.5); IMMATURE GRAN PERCENT AUTO 1 % (0-1); LYMPHOCYTES ABSOLUTE AUTO 0.88 K/mm3 (0.84-5.20); LYMPHOCYTES PERCENT AUTO 7 % (21-46); MONOCYTES ABSOLUTE AUTO 0.97 K/mm3 (0.16-1.47); MONOCYTES PERCENT AUTO 7 % (4-13); Mean Corpuscular HGB Conc 32.6 g/dL (31.5-36.5); Mean Corpuscular Volume 101 fL (80-100); Mean Platelet Volume 10.5 fL (9.1-12.4); NEUTROPHILS ABSOLUTE AUTO 11.18 K/mm3 (1.96-9.15); NEUTROPHILS PERCENT AUTO 85 % (41-73); Platelet Count 210 K/mm3 (150-400); RDW Coefficient Variation 13.2 % (11.7-14.2); RDW Standard Deviation 49.1 fL (35.1-46.3); White Blood Cell Count 13.15 K/mm3 (4.00-11.30)
--- NOTE | 2020-03-19 04:36 | NUR ---
SHIFT SUMMARY: CLOSED R HIP FX POD 1 PATIENT HAS BEEN ALERT AND ORIENTED X4 WHILE AWAKE. HE IS VERY MUCH [place] SO TALKING DIRECTLY TO HIM IS THE BEST WAY TO COMMUNICATE. PAIN AND DISCOMFORT IS DECREASED WITH 1 NORCO. NO NAUSEA OR VOMITING. PATIENT DENIES NUMBNESS AND TINGLING. PATIENT HAS CALL LIGHT WITHIN REACH AND USES IT APPROPRIATELY. CALL LIGHT IS WITHIN REACH. PT IS CURRENTLY LAYING IN BED SLEEPING.
--- NOTE | 2020-03-19 13:15 | NUR ---
SUPPOSITORY PT DENIES DULCOLAX SUPPOSITORY, REQUESTING FOR PO MED. HE WANTED TO TRY PO MEDS BEFORE TAKING SUPPOSITORY. WILL CONTINUE TO MONITOR PT.
[2020-03-19 15:27] LABS: Hematocrit 25.5 % (37.0-53.0); Hemoglobin 8.3 g/dL (13.5-17.5)
--- NOTE | 2020-03-19 17:41 | NUR ---
SHIFT SUMMARY POD1 S/P R INTERROCHANTERIC HIP FX FIXATION W/ NAILING. PT VSS, BLOOD PRESSURE IN LOW NORMAL RANGE, CONTINUE TO MONITOR BP A0X4. PT HAS FLAT AFFECT, AND IRRITABLE. PT DENIES CHEST PAIN/PRESSURE, SOB, NUMBNESS, TINGINGLING AND NO DIZZINESS. PT IS NOT TOLERATING REG DIET BECAUSE HE IS UNABLE TO CHEW HIS FOOD PROPERLY. PT REQUESTED FOR MECHANICAL SOFT DIET. ALTHOUGH HE DENIES NAUSEA AND VOMITING. PAIN IS WELL CNTROLLED WITH 10MG OXY. HE C/O OF MUSCLE SPASMS, URGENCY AND DISCOMFORT WHEN URINATING, AND UNABLE TO MAKE BM. NEW RX FOR VALIUM, PROZCAR (WHICH HE HAS BEEN TAKING AT HOME) AND BOWEL PREP. PT HAS 200ML URINE OUTPUT THROUGHOUT THE SHIFT. BLADDER SCANNED IN THE AFTERNOON OF 207ML. OCCULT STOOL TEST WAITING FOR SPECIMEN. HEMOGLOBIN IS 8.3, DR. BERUMEN IS AWARE, SHE STS TO JUST CONTINUE TO MONITOR THE PT. STRAIGHT CATH PRN FOR POST VOID OF MORE THAN 300ML. PT WORKED WITH THERAPIST THIS MORNING. PER KATT, WE MAY NEED 2-3 PERSON MAX ASSIST. RLE NONWT BEARING. 3 AQUACEL DRESSING ON RIGHT UPPER EXT,CDI. PT LIVES IN MOBILE HOME, POSSIBLE DISCHARGE FOR SNF, PENDING FOR THERAPY RECOMENDATION TOMORROW.
[2020-03-20 05:38] LABS: BASOPHILS ABSOLUTE AUTO 0.05 K/mm3 (0.00-0.23); BASOPHILS PERCENT AUTO 0 % (0-2); EOSINOPHILS ABSOLUTE AUTO 0.44 K/mm3 (0.00-0.68); EOSINOPHILS PERCENT AUTO 4 % (0-6); Hematocrit 23.2 % (37.0-53.0); Hemoglobin 7.6 g/dL (13.5-17.5); IMMATURE GRAN ABSOLUTE AUTO 0.11 K/mm3 (0.00-0.10); IMMATURE GRAN PERCENT AUTO 1 % (0-1); LYMPHOCYTES ABSOLUTE AUTO 1.75 K/mm3 (0.84-5.20); LYMPHOCYTES PERCENT AUTO 15 % (21-46); MONOCYTES ABSOLUTE AUTO 0.76 K/mm3 (0.16-1.47); MONOCYTES PERCENT AUTO 7 % (4-13); Mean Corpuscular HGB 32.9 pg (26.0-34.0); Mean Corpuscular HGB Conc 32.8 g/dL (31.5-36.5); Mean Corpuscular Volume 100 fL (80-100); Mean Platelet Volume 10.7 fL (9.1-12.4); NEUTROPHILS ABSOLUTE AUTO 8.23 K/mm3 (1.96-9.15); NEUTROPHILS PERCENT AUTO 73 % (41-73); Platelet Count 183 K/mm3 (150-400); RDW Coefficient Variation 13.3 % (11.7-14.2); RDW Standard Deviation 48.9 fL (35.1-46.3); Red Blood Cell Count 2.31 M/mm3 (4.30-5.90); White Blood Cell Count 11.34 K/mm3 (4.00-11.30)
--- NOTE | 2020-03-20 06:18 | NUR ---
POD 2 S/P R HIP NAILING. PT VSS. DRESSINGS CDI, NO ACTIVE DRNG NOTED. PT MED FOR PAIN X1 THIS AM. PT VOIDING URINE W/O DIFFICULTY, ASSISTED W/URINAL PRN. PT REPOSITIONED ALVA T/O NIGHT, DOES SHIFT SELF IN BED. PT USING CALL LIGHT FOR ASSISTANCE.
[2020-03-20 10:59] LABS: Percent Saturation 22.2 % (20.0-50.0)
[2020-03-20 14:32] LABS: Hematocrit 23.7 % (37.0-53.0); Hemoglobin 7.8 g/dL (13.5-17.5)
--- NOTE | 2020-03-20 18:15 | NUR ---
SHIFT SUMMARY PT A0X3. VSS. PT LOOKED LITTLE PALE AND IRRITABLE INTERMITTENTLY. HEMOGLOBIN LEVEL WAS TRENDING DOWN THIS MORNING AT 7.6, SLIGHT IMPROVEMENT IN THE AFTERNOON AT 7.8. DR. BERUMEN DISCUSSED TO PT FOR POSSIBLE TRANSFUSION IF HGB LESS THAN 7. PT DENIES CHEST PAIN/PRESSURE, SOB, NUMBNESS AND TINGLING SENSATION. HE IS TOLERATING HIS MEAL/PO INTAKE WELL, DENIES NAUSEA AND VOMITING. PT HAS ADEQUATE URINE OUTPUT OF 670ML. PT HAD A BOWEL PREP TODAY. PT HAD 1 SMALL BM AFTER ADMINISTERING MAG CITRATE VIA PO. STOOL SAMPLE WAS SENT TO LAB FOR TESTING. PT PAIN IS CONTROLLED WITH 2 NORCO. PLAN TO CONTINUE BOWEL PREP. MONITOR H AND H. WILL DISCHARGE TO SNF WHEN PT GETS STABLE.
[2020-03-20 22:17] LABS: Stool Occult Bld Immuno 1 Negative (NEGATIVE)
--- NOTE | 2020-03-21 05:20 | NUR ---
SHIFT SUMMARY: CLOSED R HIP FX POD 3 PT HAS BEEN A&O4 THROUGHOUT SHIFT. HIS VITALS HAVE BEEN WNL. DRESSING IS C/D/I. SCANT AMOUNT ON DRESSING NOTED. PAIN HAS BEEN MANAGED WITH 2 NORCO. WHEN HE HAS AN INTENSE MUSCLE SPASM IN THE R HIP 2MG OF VALIUM MANAGES IT. PT IS VOIDING WITH URNAL. PT WAS REPOSITIONED WHEN NEEDED DURING SHIFT. PT USES CALL LIGHT APPROPRIATELY. CALL LIGHT IS WITHIN REACH. PLAN IS TO HAVE PT/OT EVALUATE TODAY, AND POSSIBLY DISCHARGED TO A SNF.
[2020-03-21 08:50] LABS: BASOPHILS ABSOLUTE AUTO 0.03 K/mm3 (0.00-0.23); BASOPHILS PERCENT AUTO 0 % (0-2); EOSINOPHILS ABSOLUTE AUTO 0.37 K/mm3 (0.00-0.68); EOSINOPHILS PERCENT AUTO 3 % (0-6); Hematocrit 23.8 % (37.0-53.0); Hemoglobin 7.9 g/dL (13.5-17.5); IMMATURE GRAN ABSOLUTE AUTO 0.16 K/mm3 (0.00-0.10); IMMATURE GRAN PERCENT AUTO 1 % (0-1); LYMPHOCYTES PERCENT AUTO 14 % (21-46); MONOCYTES ABSOLUTE AUTO 0.76 K/mm3 (0.16-1.47); MONOCYTES PERCENT AUTO 6 % (4-13); Mean Corpuscular HGB 33.6 pg (26.0-34.0); Mean Corpuscular HGB Conc 33.2 g/dL (31.5-36.5); Mean Corpuscular Volume 101 fL (80-100); Mean Platelet Volume 10.7 fL (9.1-12.4); NEUTROPHILS ABSOLUTE AUTO 8.85 K/mm3 (1.96-9.15); NEUTROPHILS PERCENT AUTO 75 % (41-73); Platelet Count 239 K/mm3 (150-400); RDW Coefficient Variation 13.2 % (11.7-14.2); RDW Standard Deviation 48.5 fL (35.1-46.3); Red Blood Cell Count 2.35 M/mm3 (4.30-5.90); White Blood Cell Count 11.87 K/mm3 (4.00-11.30)
--- NOTE | 2020-03-21 17:01 | NUR ---
DISCHARGE SUMMARY TRANSPORT ARRIVED @ 1630, A/O X4, 2 PERSON MOD ASSIST TO XFER, TOLERATING PO, VOIDING, PASSING FLATUS/BM, CONFIRMED TO HAVE ALL IV ACCESS DC'D, NO PRESSURE ULCERS PRESENT ON DC, REPORT GIVEN TO ROSA @ [facility]. PT ESCORTED TO TRANSPORT @ 1645 W/ ALL PERSONAL POSSESSIONS.
== END 2020-03-21 16:45 | DRG 481 ==
LOC: ER 16:34 → SURS 21:24
PROVIDERS: Emergency Medicine; Internal Medicine; Orthopaedic Surgery; ADMIT Family Medicine
PROC: 3E0234Z Introduction of Serum, Toxoid and Vaccine into Muscle, Percutaneous Approach (ICD-10-PCS; 2020-03-17)
PROC: 0QS636Z Reposition Right Upper Femur with Intramedullary Internal Fixation Device, Percutaneous Approach (ICD-10-PCS; principal; 2020-03-18 14:00)
DX: S72.101A Unspecified trochanteric fracture of right femur, initial encounter for closed fracture (principal); D62 Acute posthemorrhagic anemia; I10 Essential (primary) hypertension; E78.5 Hyperlipidemia, unspecified; I25.10 Atherosclerotic heart disease of native coronary artery without angina pectoris; N40.0 Benign prostatic hyperplasia without lower urinary tract symptoms; Z23 Encounter for immunization; Z20.828 Contact with and (suspected) exposure to other viral communicable diseases; G47.33 Obstructive sleep apnea (adult) (pediatric); D52.9 Folate deficiency anemia, unspecified; G89.29 Other chronic pain; F32.9 Major depressive disorder, single episode, unspecified; W19.XXXA Unspecified fall, initial encounter; Z95.5 Presence of coronary angioplasty implant and graft; Z88.1 Allergy status to other antibiotic agents; Z88.5 Allergy status to narcotic agent; Z88.0 Allergy status to penicillin; Z88.8 Allergy status to other drugs, medicaments and biological substances; Z87.891 Personal history of nicotine dependence; Z79.82 Long term (current) use of aspirin; Z79.02 Long term (current) use of antithrombotics/antiplatelets; I25.2 Old myocardial infarction
CPT/HCPCS: 36415; 51702; 70450; 71045; 72125; 72170; 73552; 80048; 80053; 81001; 82274; 82607; 82728; 82746; 83540; 83550; 85014; 85018; 85025; 85610; 85730; 93005; 93010; 96374-59; 96376-59; 97110; 97112; 97162; 97166; 97530; 99285-25; A9270-GY; C1713; J1100; J1170; J2370; J2405; J2704; J3010; J7030; Q2038; U0003

== ENCOUNTER 2020-08-01 12:54 | Emergency (ER) | payer OTHER, MEDICARE ==
[~2020-08-01] VITALS: Ht 185.4 cm; Wt 93.0 kg
[~2020-08-01 12:54] MED LIST changes: +HYDHCL25 PO; +HYDR1TAB94 PO; +MAGNESIUM OXID500 MG PO
[2020-08-01 13:26] LABS: BASOPHILS ABSOLUTE AUTO 0.04 K/mm3 (0.00-0.23); BASOPHILS PERCENT AUTO 0 % (0-2); EOSINOPHILS ABSOLUTE AUTO 0.26 K/mm3 (0.00-0.68); EOSINOPHILS PERCENT AUTO 3 % (0-6); Hematocrit 38.1 % (37.0-53.0); Hemoglobin 12.9 g/dL (13.5-17.5); IMMATURE GRAN ABSOLUTE AUTO 0.06 K/mm3 (0.00-0.10); IMMATURE GRAN PERCENT AUTO 1 % (0-1); LYMPHOCYTES PERCENT AUTO 18 % (21-46); MONOCYTES ABSOLUTE AUTO 0.76 K/mm3 (0.16-1.47); MONOCYTES PERCENT AUTO 8 % (4-13); Mean Corpuscular HGB 32.5 pg (26.0-34.0); Mean Corpuscular HGB Conc 33.9 g/dL (31.5-36.5); Mean Corpuscular Volume 96 fL (80-100); Mean Platelet Volume 9.8 fL (9.1-12.4); NEUTROPHILS ABSOLUTE AUTO 7.27 K/mm3 (1.96-9.15); NEUTROPHILS PERCENT AUTO 71 % (41-73); Platelet Count 283 K/mm3 (150-400); RDW Coefficient Variation 13.9 % (11.7-14.2); RDW Standard Deviation 48.8 fL (35.1-46.3); Red Blood Cell Count 3.97 M/mm3 (4.30-5.90); White Blood Cell Count 10.19 K/mm3 (4.00-11.30)
[2020-08-01 13:51] LABS: Source, Urine Clean Catch
[2020-08-01 13:52] LABS: Alanine Aminotransfer (ALT/SGP 25 U/L (12-78); Albumin, Blood 3.7 g/dL (3.4-5.0); Albumin/Globulin Ratio 0.9 (0.8-1.8); Alk Phos 96 U/L (50-136); Anion Gap 7 mmol/L (6-16); Aspartate Aminotrans (AST/SGOT 11 U/L (12-37); Bilirubin, Total 0.6 mg/dL (0.1-1.0); Blood Urea Nitrogen 11 mg/dL (8-24); Bun/Creatinine Ratio 12.9 (12.0-20.0); CO2, Blood 26 mmol/L (21-32); Calcium, Blood 8.8 mg/dL (8.5-10.1); Chloride, Blood 107 mmol/L (98-108); Creatinine, Blood 0.85 mg/dL (0.60-1.20); Globulin, Blood 4.2 g/dL (2.2-4.0); Glomerular Filtration Rate >60 (60-); Glucose, Blood 115 mg/dL (70-99); Potassium, Blood 3.4 mmol/L (3.5-5.5); Sodium, Blood 140 mmol/L (136-145); Total Protein, Blood 7.9 g/dL (6.4-8.2); Troponin I <0.015 ng/mL (0.000-0.040)
[2020-08-01 13:56] LABS: Bilirubin, Urine Neg (Neg); Blood, Urine Neg (Neg); Glucose Qualitative, Urine Neg (Neg); Ketones, Urine Neg (Neg); Leukocyte Esterase, Urine Neg (Neg); Nitrite, Urine Neg (Neg); Protein, Urine Neg (Neg); Urobilinogen, Urine NORM (Normal)
[2020-08-01 13:57] LABS: Appearance, Urine Clear (Clear); Color, Urine Yellow (P-Yellow)
[2020-08-01] MEDS ORDERED: ZEBUTAL 50-3251 EAC2 PO (14:47)
[2020-08-02] MEDS ORDERED: ZEBUTAL 50-3251 EAC1 PO (09:52)
== END 2020-08-01 15:02 | disposition home or self-care (01) ==
LOC: ER 12:54
PROVIDERS: Physician Assistant
DX: E87.6 Hypokalemia (principal); R51.9 Headache, unspecified; I10 Essential (primary) hypertension; I25.10 Atherosclerotic heart disease of native coronary artery without angina pectoris; E78.5 Hyperlipidemia, unspecified; Z87.891 Personal history of nicotine dependence; Z88.0 Allergy status to penicillin; Z91.09 Other allergy status, other than to drugs and biological substances; Z88.5 Allergy status to narcotic agent; Z79.02 Long term (current) use of antithrombotics/antiplatelets; Z79.899 Other long term (current) drug therapy; Z79.82 Long term (current) use of aspirin
CPT/HCPCS: 70450; 71046; 80053; 81003; 83880; 84484; 85025; 85651; 93005; 93010; 96374; 96375; 99285-25; J1200; J1885; J2765

== ENCOUNTER 2020-11-26 22:51 | Observation (INO) | payer MEDICARE ==
[~2020-11-26] VITALS: Ht 185.4 cm; Wt 93.3 kg
[~2020-11-26 22:51] MED LIST changes: +ZEBUTAL 50-3251 EAC1 PO; +ZEBUTAL 50-3251 EAC2 PO
[2020-11-26 23:16] LABS: BASOPHILS ABSOLUTE AUTO 0.05 K/mm3 (0.00-0.23); BASOPHILS PERCENT AUTO 0 % (0-2); EOSINOPHILS ABSOLUTE AUTO 0.34 K/mm3 (0.00-0.68); EOSINOPHILS PERCENT AUTO 3 % (0-6); Hematocrit 36.6 % (37.0-53.0); Hemoglobin 12.3 g/dL (13.5-17.5); IMMATURE GRAN ABSOLUTE AUTO 0.05 K/mm3 (0.00-0.10); IMMATURE GRAN PERCENT AUTO 0 % (0-1); LYMPHOCYTES ABSOLUTE AUTO 2.44 K/mm3 (0.84-5.20); LYMPHOCYTES PERCENT AUTO 22 % (21-46); MONOCYTES PERCENT AUTO 7 % (4-13); Mean Corpuscular HGB 33.5 pg (26.0-34.0); Mean Corpuscular HGB Conc 33.6 g/dL (31.5-36.5); Mean Corpuscular Volume 100 fL (80-100); Mean Platelet Volume 10.7 fL (9.1-12.4); NEUTROPHILS PERCENT AUTO 68 % (41-73); Platelet Count 272 K/mm3 (150-400); RDW Coefficient Variation 13.8 % (11.7-14.2); RDW Standard Deviation 50.4 fL (35.1-46.3); Red Blood Cell Count 3.67 M/mm3 (4.30-5.90); White Blood Cell Count 11.28 K/mm3 (4.00-11.30)
[2020-11-27 00:52] LABS: Alanine Aminotransfer (ALT/SGP 23 U/L (12-78); Albumin, Blood 3.4 g/dL (3.4-5.0); Albumin/Globulin Ratio 0.9 (0.8-1.8); Alk Phos 81 U/L (50-136); Anion Gap 4 mmol/L (6-16); Aspartate Aminotrans (AST/SGOT 13 U/L (12-37); Bilirubin, Total 0.3 mg/dL (0.1-1.0); Blood Urea Nitrogen 13 mg/dL (8-24); Bun/Creatinine Ratio 13.8 (12.0-20.0); CO2, Blood 29 mmol/L (21-32); Calcium, Blood 8.7 mg/dL (8.5-10.1); Chloride, Blood 111 mmol/L (98-108); Creatinine, Blood 0.94 mg/dL (0.60-1.20); Globulin, Blood 3.8 g/dL (2.2-4.0); Glomerular Filtration Rate >60 (60-); Glucose, Blood 93 mg/dL (70-99); Potassium, Blood 3.5 mmol/L (3.5-5.5); Sodium, Blood 144 mmol/L (136-145); Total Protein, Blood 7.2 g/dL (6.4-8.2); Troponin I <0.015 ng/mL (0.000-0.040)
[2020-11-27 01:22] LABS: PCO2 Arterial 41.5 mmHg (35-45); PO2 Arterial 83.1 mmHg (80-100); pH Blood Arterial 7.42 (7.35-7.45)
[2020-11-27 02:34] LABS: CHOL/HDL RATIO 4.9; Cholesterol 136 mg/dL (50-200); HDL Cholesterol 28 mg/dL (>39); LDL/HDL RATIO 2.8; Low Density Lipoprotein Chol 79 mg/dL (0-110); Triglycerides 147 mg/dL (30-160); Very Low Density Lipoprot Chol 29 mg/dL (6-32)
--- NOTE | 2020-11-27 05:25 | NUR ---
SHIFT SUMMARY ADMITTED FROM ED APPROX 0345. A/OX3, HOWEVER PT WAS UNABLE TO TELL ME HIS CORRECT AND STATES HE HAS BEEN MORE FORGETFUL IN THE LAST FEW MONTHS. DENIES CHEST PAIN/PRESSURE AT THIS TIME AND STATES "IT COMES AND GOES EVERY SO OFTEN". TELE SR WITH BBB IN THE 70S. USES W/C AT BASELINE, ABLE TO STAND/PIVOT FROM CHAIR TO BED. VSS, NO ACUTE CHANGES AT THIS TIME. BED IN LOWEST POSITION WITH CALL LIGHT IN REACH. WILL CONTINUE TO MONITOR AND REPORT TO ONCOMING RN.
[2020-11-27 09:38] LABS: Source, Urine Clean Catch
[2020-11-27 09:43] LABS: Appearance, Urine Clear (Clear); Bilirubin, Urine Neg (Neg); Blood, Urine Neg (Neg); Color, Urine Yellow (P-Yellow); Glucose Qualitative, Urine Neg (Neg); Ketones, Urine Neg (Neg); Leukocyte Esterase, Urine Neg (Neg); Nitrite, Urine Neg (Neg); Protein, Urine Neg (Neg); Urobilinogen, Urine NORM (Normal)
[2020-11-27 10:06] LABS: U Amphetamine Screen Not Detected; U Barbituate Screen Not Detected; U Benzodiazapine Screen Not Detected; U Buprenorphine Screen Not Detected; U Cannabinoids Screen Not Detected; U Cocaine Screen Not Detected; U Methadone Screen Not Detected; U Methamphetamine Screen Not Detected; U Opiates Screen Not Detected; U Oxycodone Screen Not Detected; U Phencyclidine Screen Not Detected; U Propoxyphene Screen Not Detected
--- NOTE | 2020-11-27 10:14 | NUR ---
echocardiogram completed
--- NOTE | 2020-11-27 17:45 | NUR ---
SHIFT SUMMARY. ALERT, ORIENTATED TO PLACE, PERSON, FAMILY, SITUATION. PT REPORT IT WAS DECEMBER AND 1919, WHEN TOLD IT WAS 2020 HE RESPONDED, "OH YA." WHEN TOLD IT WAS THE END OF NOVEMBER AND ALMOST DECEMBER HE ACKNOWLED THAT WELL. PT WITH LUE WEAKNESS, LEFT MOUTH DROOP, SLURRED SPEECH. RLE WEAKNESS R/T HIP FX REPAIR. VERÓNICA. SYMPTOMS UNCHANGED THIS AFTERNOON FROM AM ASSESSMENT. ECHO AND CORATOD DOPPLER COMPLETED TODAY, MRI NOT COMPLETED RADIOLOGY STAFF UNABLE TO FIND RECORDS OF TYPE OF PT'S CARDIAC STENTS, RADIOLOGY NOTIFIED THAT PT REPORTED THAT PCI WAS COMPLETED AT [facility] IN 2019, THEY REPORTED MRI SHOULD BE COMPLETED TOMORROW. PT C/O R HIP PAIN THIS AM, PAIN MANAGED WELL WITH APAP. NO N/V, SOB. PT DENIES CP. SON IN TO VISIT THIS AFTERNOON. PT EVAL COMPLETED. NO OTHER CHANGES OR CONCERNS.
--- NOTE | 2020-11-28 03:58 | NUR ---
SHIFT SUMMARY A/OX3, UNSURE OF CORRECT MONTH/DAY. SLEPT T/O THE NIGHT. DENIES CHEST PAIN/PRESSURE. TELE SB 45-60. NO FACIAL DROOP, SLIGHTLY WEAK L. HAND SPEECH INSTRUCTOR NOTED. 1 ASSIST STAND/PIVOT TO BSC. VSS, NO ACUTE CHANGES AT THIS TIME. CURRENT PLAN IS FOR MRI THIS AM. BED IN LOWEST POSITION WITH CALL LIGHT IN REACH. WILL CONTINUE TO MONITOR AND REPORT TO ONCOMING RN.
--- NOTE | 2020-11-28 17:30 | NUR ---
PT DISCHARGED FROM THE UNIT. IV REMOVED. DISCHARGE INSTRUCTIONS REVIEWED. LEFT VIA WHEEL CHAIR. SON WILL DRIVE HOME
== END 2020-11-28 16:10 | disposition home health service (06) ==
LOC: ER 22:51 → MEDS 22:52
PROVIDERS: Emergency Medicine; ADMIT Family Medicine
DX: G45.9 Transient cerebral ischemic attack, unspecified (principal); I10 Essential (primary) hypertension; I25.10 Atherosclerotic heart disease of native coronary artery without angina pectoris; E78.5 Hyperlipidemia, unspecified; N40.0 Benign prostatic hyperplasia without lower urinary tract symptoms; K21.9 Gastro-esophageal reflux disease without esophagitis; G43.909 Migraine, unspecified, not intractable, without status migrainosus; G47.33 Obstructive sleep apnea (adult) (pediatric); D52.9 Folate deficiency anemia, unspecified; S72.91XD Unspecified fracture of right femur, subsequent encounter for closed fracture with routine healing; Z88.1 Allergy status to other antibiotic agents; Z88.5 Allergy status to narcotic agent; Z91.09 Other allergy status, other than to drugs and biological substances; Z79.02 Long term (current) use of antithrombotics/antiplatelets; Z79.82 Long term (current) use of aspirin; Z99.89 Dependence on other enabling machines and devices; Z95.5 Presence of coronary angioplasty implant and graft; Z87.891 Personal history of nicotine dependence
CPT/HCPCS: 36415; 36600; 70450; 70551; 80053; 80061; 81003; 82803; 84484; 85025; 93005; 93010; 93306; 93880; 96372; 97162; 97530; 97530-CQ; 99285-25; A9270; G0378; J1650; J7030

== ENCOUNTER 2021-04-10 11:23 | Observation (INO) | payer MEDICARE ==
[~2021-04-10] VITALS: Ht 185.4 cm; Wt 95.6 kg
[2021-04-10 11:53] LABS: BASOPHILS ABSOLUTE AUTO 0.08 K/mm3 (0.00-0.23); BASOPHILS PERCENT AUTO 1 % (0-2); EOSINOPHILS ABSOLUTE AUTO 0.33 K/mm3 (0.00-0.68); EOSINOPHILS PERCENT AUTO 4 % (0-6); Hematocrit 38.2 % (37.0-53.0); Hemoglobin 12.7 g/dL (13.5-17.5); IMMATURE GRAN ABSOLUTE AUTO 0.08 K/mm3 (0.00-0.10); IMMATURE GRAN PERCENT AUTO 1 % (0-1); LYMPHOCYTES ABSOLUTE AUTO 1.84 K/mm3 (0.84-5.20); LYMPHOCYTES PERCENT AUTO 20 % (21-46); MONOCYTES PERCENT AUTO 7 % (4-13); Mean Corpuscular HGB 33.5 pg (26.0-34.0); Mean Corpuscular HGB Conc 33.2 g/dL (31.5-36.5); Mean Corpuscular Volume 101 fL (80-100); Mean Platelet Volume 10.2 fL (9.1-12.4); NEUTROPHILS ABSOLUTE AUTO 6.23 K/mm3 (1.96-9.15); NEUTROPHILS PERCENT AUTO 68 % (41-73); Platelet Count 316 K/mm3 (150-400); RDW Coefficient Variation 14.5 % (11.7-14.2); RDW Standard Deviation 53.8 fL (35.1-46.3); Red Blood Cell Count 3.79 M/mm3 (4.30-5.90); White Blood Cell Count 9.16 K/mm3 (4.00-11.30)
[2021-04-10 12:08] LABS: Alanine Aminotransfer (ALT/SGP 24 U/L (12-78); Albumin, Blood 3.7 g/dL (3.4-5.0); Albumin/Globulin Ratio 0.8 (0.8-1.8); Alk Phos 76 U/L (50-136); Anion Gap 4 mmol/L (6-16); Aspartate Aminotrans (AST/SGOT 13 U/L (12-37); Bilirubin, Total 0.5 mg/dL (0.1-1.0); Blood Urea Nitrogen 14 mg/dL (8-24); Bun/Creatinine Ratio 13.9 (12.0-20.0); CO2, Blood 27 mmol/L (21-32); Calcium, Blood 9.4 mg/dL (8.5-10.1); Chloride, Blood 107 mmol/L (98-108); Creatinine, Blood 1.01 mg/dL (0.60-1.20); Free Thyroxine 0.93 ng/dL (0.70-1.60); Globulin, Blood 4.5 g/dL (2.2-4.0); Glomerular Filtration Rate >60 (60-); Glucose, Blood 136 mg/dL (70-99); Potassium, Blood 3.9 mmol/L (3.5-5.5); Sodium, Blood 138 mmol/L (136-145); Total Protein, Blood 8.2 g/dL (6.4-8.2)
[2021-04-10 12:34] LABS: CHOL/HDL RATIO 4.9; Cholesterol 188 mg/dL (50-200); HDL Cholesterol 38 mg/dL (>39); LDL/HDL RATIO 3.5; Low Density Lipoprotein Chol 134 mg/dL (0-110); Triglycerides 78 mg/dL (30-160); Troponin I <0.015 ng/mL (0.000-0.040); Very Low Density Lipoprot Chol 15 mg/dL (6-32)
[2021-04-10 13:43] LABS: U Amphetamine Screen Not Detected; U Barbituate Screen Not Detected; U Benzodiazapine Screen Not Detected; U Buprenorphine Screen Not Detected; U Cannabinoids Screen Not Detected; U Cocaine Screen Not Detected; U Methadone Screen Not Detected; U Methamphetamine Screen Not Detected; U Opiates Screen Not Detected; U Oxycodone Screen Not Detected; U Phencyclidine Screen Not Detected; U Propoxyphene Screen Not Detected
--- NOTE | 2021-04-10 18:45 | NUR ---
SHIFT SUMMARY PATIENT ADMITTED FROM ER AT 1800. PATIENT SETTLED INTO ROOM. TELE ORDERED. DINNER TRAY ORDERED. PATIENT DENIES PAIN, NAUSEA, AND SHORTNESS OF BREATH. PATIENT IS A&O X4. PATIENT HAS LEFT SIDE WEAKNESS IN UPPER AND LOWER EXTREMITIES. PATIENT HAS A SLIGHT FACIAL DROOP. SPEECH IS CLEAR. PATIENT DID NOT TRACK FINGER TO LEFT SIDE, PATIENT REPORTS HE COULD NOT SEE IT. PATIENT IS A SBA, BUT INDEPENDENT WITH URINAL. PATIENT IS EATING AND DRINKING WELL. PATIENT IS PLEASANT AND COOPERATIVE WITH CARE.
--- NOTE | 2021-04-10 23:56 | NUR ---
CHANGE IN SYMPTOMS AT 2255 TAG AND LABEL CUTTER CALLED THIS NURSE INTO RM. PT REPORTED SOB, DIZZINESS & WAS SITTING @SIDE OF BED HOLDING CHEST. CALLED TELE, NSR c BBB. WHILE TAG AND LABEL CUTTER GETTING VITALS PT SLUMPED OVER IN BED, WAS NONVERBAL, ASKED WHAT NAME WAS OR WHERE HE WAS & PT STARED BLANKLY. STATED "OWE" & GRABBED CHEST. NOTICED L FACIAL DROOP HAD INCREASED. INFORMED DR MONTANA & HE ORDERED EKG, STAT HEAD CT, ALONG c PLAVIX & ASA. INFORMED CHARGE NURSE FAN Avalos & MARCIANO KWAN.
--- NOTE | 2021-04-11 01:19 | NUR ---
SHIFT SUMMARY PT STARTED AOX4 @BEGINNING OF SHIFT. ANSWERED ALL QUESTIONS APPROPRIATE @2255, PT HAD EPISODE WHERE HE DID NOT RESPOND TO QUESTIONS & WAS NON-VERBAL. READ PREVIOUS NOTE. PROGRESSED TO SLURRED GARBLED SPEECH. HOWEVER NOW PT HAS BECOME VERBAL AGAIN, STILL SLIGHTLY CONFUSED TO BIRTHDAY & STATES "I THINK IM IN THE HOSPITAL, THATS WHERE I WAS EARLIER." DR MONTANA UP TO PTS BEDSIDE TO ASSESS & WAS NOTIFIED OF ALL NEW SYMPTOMS/CHANGES. MRI PLANNED FOR AM. BP SLIGHTLY ELEVATED, REST OF VITALS STABLE. EKG & HEAD CT PERFORMED THIS SHIFT. CALL LIGHT IN REACH. HANDED OFF CARE & GAVE REPORT TO FAN Avalos RN.
--- NOTE | 2021-04-11 02:37 | NUR ---
0105 TOOK OVER CARE OF PT FROM LAURA, PT IS AWAKE, ENVIRONMENTAL EDUCATOR IN ROOM. PT APPEARS TO STILL HAVE CLEAR SPEECH AND IS ANSWERING MOST QUESTIONS EXCEPT HE IS UNABLE TO ANSWER HIS BIRTHDAY. THE L FACIAL DROOP IS STILL BACK TO MINIMAL. WILL CONTINUE TO MONITOR. NO OTHER APPARENT SIGNS OF DISTRESS. CALL LIGHT IS IN REACH.
--- NOTE | 2021-04-11 02:50 | NUR ---
PT LYING IN BED, EYES CLOSED, APPEARS TO BE RESTING. BREATHING IS EVEN, UNLABORED. NO APPARENT SIGNS OF DISTRESS. CALL LIGHT IS IN REACH.
--- NOTE | 2021-04-11 04:38 | NUR ---
0402 POST VOID BLADDER SCAN DONE WITH 281 REMAINING. PT DENIES ANY DISCOMFORT AT THIS TIME OR NEED FOR ANYTHING ELSE AT THIS TIME. NO APPARENT SIGNS OF DISTRESS. CALL LIGHT IS IN REACH.
--- NOTE | 2021-04-11 06:03 | NUR ---
PT LYING IN BED, EYES CLOSED, APPEARS TO BE RESTING. BREATHING IS EVEN, UNLABORED. NO APPARENT SIGNS OF DISTRESS. CALL LIGHT IS IN REACH. NO OTHER CHANGES THIS SHIFT.
[2021-04-11 09:11] LABS: Appearance, Urine Clear (Clear); Bilirubin, Urine Neg (Neg); Blood, Urine Neg (Neg); Color, Urine Amber (P-Yellow); Glucose Qualitative, Urine Neg (Neg); Ketones, Urine Neg (Neg); Leukocyte Esterase, Urine Neg (Neg); Nitrite, Urine Neg (Neg); Protein, Urine Neg (Neg); Specific Gravity, Urine 1.015 (1.003-1.022); Urobilinogen, Urine NORM (Normal)
--- NOTE | 2021-04-11 16:45 | NUR ---
SHIFT SUMMARY PATIENT DENIES PAIN, NAUSEA, AND SHORTNESS OF BREATH. PATIENT HAD NO CHANGES IN NEURO CHECKS THIS SHIFT. PATIENT STILL HAS LEFT SIDE WEAKNESS, ESPECIALLY NOTED IN LEFT WEB OPERATIONS LEAD. PATIENT SPEECH IS SLIGHTLY SLURRED WITH MINIMAL FACIAL DROOP. PT AND OT WORKED WITH PATIENT. CURRENTLY RECOMMENDING SNF. PATIENT WENT FOR MRI THIS AFTERNOON. SON VISITED AFTER. PATIENT IS EATING AND DRINKING WELL. PATIENT IS PLEASANT AND COOPERATIVE WITH CARE.
--- NOTE | 2021-04-12 18:36 | NUR ---
CALLED DR CALVO [phone] TO NOTIFY HIM THAT PT HAD NEURO CHANGE OF INCREASED SLURRED/GARBLED SPEECH, C/O DIZZINESS, TOOK BLOOD PRESURE WHILE UP IN CHAIR AND HEAD BEGAN TO FALL FORWARD, RN KEPT PT FROM FALLING OUT OF SEET. NEEDED 2 PERSON MAX ASSIST BACK TO BED AND HE'D INTITIALLY STOOD INDEPENDANT TO CHAIR WITH WALKER. DR CALVO CAME SOON TO EVAL PT. DC HOME IS ON HOLD.
--- NOTE | 2021-04-12 18:46 | NUR ---
SUMMARY- PT A/O X3, MILD SLURRED SPEECH. MILD L WEAKNESS. FAISAL. UP IN CHAIR FOR BREAKFAST- WORKED WITH PT/OT. PLAN TO DC HOME ON HOLD RELATED TO NEURO CHANGE AT 1100 WHEN PT BECAME DIZZI AND NEEDED ASSIST BACK TO BED. PT REGAINED NEURO AND IS BACK TO BASELINE WITH MILD SLURRED SPEECH BUT NOT HAVING THE DIZZINESS OR GARBLED SPEECH ANY MORE TODAY. SON IN TO VISIT. VSS. PLAN FOR DC TOMORROW
[2021-04-13] MEDS ORDERED: DOCU100 PO (16:20)
[2021-04-13] MEDS ORDERED: EZET10 PO (16:20)
[2021-04-13] MEDS ORDERED: SENN187 PO (16:22)
[2021-04-13] MEDS ORDERED: MIRALAX17 GM PO (16:22)
--- NOTE | 2021-04-13 17:16 | NUR ---
DISCHARGE PT DISCHARGED TODAY. PT & SON, RHONDA, EDUCATED ON NEW MEDS AND FOLLOWUP INSTRUCTIONS. HOME HEALTH TO FOLLOW UP WITH THE PT. NO ACUTE CHANGES PRIOR TO DC. NO FURTHER QUESTIONS REQUIRED AT THIS TIME. PT WHEELED OUT BY THIS RN AND DRIVEN HOME BY SON.
--- NOTE | 2021-04-14 13:29 | NUR ---
Received referral from nurse acute care assistant (Nima Alfred) on 04/12/2021. Patient is to discharge with orders for home health and elected [facility]. Met with patient on - to further discuss the above. Patient is agreeable to the above. Discussed homebound status definition with patient. Patient verbalized understanding. Discussed what home health is vs what it is not (in home caregivers/housekeeping). Patient verbalized understanding. Discussed the next steps in the process of an initial assessment to determine frequency of visits. Again patient verbalized understanding. Offered a chance for patient to ask questions regarding the above of which there were none. Gathered all supporting documentation for referral (face sheet, face to face, med list, H&P, discharge summary, and most recent PT assessment) and sent to [facility] for review. No further interventions required. Una Garcia Referral Liaison
== END 2021-04-13 17:00 | disposition home health service (06) ==
LOC: ER 11:23 → ERHOLD 11:24 → MEDS 18:01
PROVIDERS: Internal Medicine; Student in an Organized Health Care Education/Training Program; ADMIT Internal Medicine
DX: I16.1 Hypertensive emergency (principal); I67.9 Cerebrovascular disease, unspecified; I10 Essential (primary) hypertension; I25.10 Atherosclerotic heart disease of native coronary artery without angina pectoris; I45.10 Unspecified right bundle-branch block; I44.4 Left anterior fascicular block; E78.5 Hyperlipidemia, unspecified; G47.33 Obstructive sleep apnea (adult) (pediatric); N40.0 Benign prostatic hyperplasia without lower urinary tract symptoms; L71.1 Rhinophyma; M48.02 Spinal stenosis, cervical region; Z88.1 Allergy status to other antibiotic agents; Z88.5 Allergy status to narcotic agent; Z88.0 Allergy status to penicillin; Z88.8 Allergy status to other drugs, medicaments and biological substances; Z91.048 Other nonmedicinal substance allergy status; Z87.891 Personal history of nicotine dependence
CPT/HCPCS: 36415; 70450; 70496; 70498; 70551; 80053; 80061; 81003; 83036; 84439; 84443; 84484; 85025; 93005; 93010; 94762; 96374; 97110; 97112; 97116; 97162; 97166; 97530; 97535; 99285-25; A9270; G0378; J2060; J7030; Q9967

== ENCOUNTER 2021-07-23 03:17 | Inpatient (IN) | payer MEDICARE ==
[~2021-07-23] VITALS: Ht 177.8 cm; Wt 104.3 kg
[~2021-07-23 03:17] MED LIST changes: +DOCU100 PO; +EZET10 PO; +MIRALAX17 GM PO; +SENN187 PO
[2021-07-23 03:36] LABS: BASOPHILS ABSOLUTE AUTO 0.06 K/mm3 (0.00-0.23); BASOPHILS PERCENT AUTO 0 % (0-2); EOSINOPHILS ABSOLUTE AUTO 0.21 K/mm3 (0.00-0.68); EOSINOPHILS PERCENT AUTO 1 % (0-6); Hematocrit 37.2 % (37.0-53.0); Hemoglobin 12.4 g/dL (13.5-17.5); IMMATURE GRAN ABSOLUTE AUTO 0.14 K/mm3 (0.00-0.10); IMMATURE GRAN PERCENT AUTO 1 % (0-1); LYMPHOCYTES ABSOLUTE AUTO 0.79 K/mm3 (0.84-5.20); LYMPHOCYTES PERCENT AUTO 4 % (21-46); MONOCYTES ABSOLUTE AUTO 0.85 K/mm3 (0.16-1.47); MONOCYTES PERCENT AUTO 4 % (4-13); Mean Corpuscular HGB 33.3 pg (26.0-34.0); Mean Corpuscular HGB Conc 33.3 g/dL (31.5-36.5); Mean Corpuscular Volume 100 fL (80-100); Mean Platelet Volume 10.5 fL (9.1-12.4); NEUTROPHILS ABSOLUTE AUTO 19.05 K/mm3 (1.96-9.15); NEUTROPHILS PERCENT AUTO 90 % (41-73); NRBC ABSOLUTE 0.02 K/mm3 (0.00-0.02); NRBC Auto 0.1 /100 WBC (0.0-0.2); Platelet Count 272 K/mm3 (150-400); RDW Coefficient Variation 14.3 % (11.7-14.2); RDW Standard Deviation 51.2 fL (35.1-46.3); Red Blood Cell Count 3.72 M/mm3 (4.30-5.90)
[2021-07-23 03:50] LABS: Alanine Aminotransfer (ALT/SGP 25 U/L (12-78); Albumin, Blood 3.7 g/dL (3.4-5.0); Albumin/Globulin Ratio 0.9 (0.8-1.8); Alk Phos 82 U/L (50-136); Anion Gap 7 mmol/L (6-16); Aspartate Aminotrans (AST/SGOT 15 U/L (12-37); Bilirubin, Total 0.7 mg/dL (0.1-1.0); Blood Urea Nitrogen 16 mg/dL (8-24); Bun/Creatinine Ratio 14.8 (12.0-20.0); CO2, Blood 24 mmol/L (21-32); Calcium, Blood 9.4 mg/dL (8.5-10.1); Chloride, Blood 108 mmol/L (98-108); Creatinine, Blood 1.08 mg/dL (0.60-1.20); Globulin, Blood 4.1 g/dL (2.2-4.0); Glomerular Filtration Rate >60 (60-); Glucose, Blood 203 mg/dL (70-99); Magnesium, Blood 1.9 mg/dL (1.6-2.4); Potassium, Blood 3.6 mmol/L (3.5-5.5); Sodium, Blood 139 mmol/L (136-145); Total Protein, Blood 7.8 g/dL (6.4-8.2)
[2021-07-23 04:25] LABS: Source, Urine Straight Cath
[2021-07-23 04:31] LABS: Bilirubin, Urine Neg (Neg); Blood, Urine 3+ (Neg); Glucose Qualitative, Urine Neg (Neg); Ketones, Urine Neg (Neg); Leukocyte Esterase, Urine 2+ (Neg); Nitrite, Urine Pos (Neg); Protein, Urine 1+ (Neg); Urobilinogen, Urine NORM (Normal)
[2021-07-23 04:33] LABS: Appearance, Urine Hazy (Clear); Color, Urine Yellow (P-Yellow)
[2021-07-23 04:41] LABS: Bacteria Many /hpf; Red Blood Cells, Urine Rare /hpf (0-2); Squamous Epithelial Cells Rare /hpf (Few); White Blood Cells, Urine TNTC /hpf (0-5)
[2021-07-23 05:11] LABS: Influenza A, PCR NEGATIVE (NEGATIVE); Influenza B, PCR NEGATIVE (NEGATIVE); Resp Syncytial Virus, PCR NEGATIVE (NEGATIVE); SARS-Cov-2 (COVID-19) PCR, MMC NEGATIVE (NEGATIVE)
[2021-07-23 07:52] LABS: U Amphetamine Screen Not Detected; U Barbituate Screen Not Detected; U Benzodiazapine Screen Not Detected; U Buprenorphine Screen Not Detected; U Cannabinoids Screen Not Detected; U Cocaine Screen Not Detected; U Methadone Screen Not Detected; U Methamphetamine Screen Not Detected; U Opiates Screen Not Detected; U Oxycodone Screen Not Detected; U Phencyclidine Screen Not Detected; U Propoxyphene Screen Not Detected
[2021-07-23] MEDS ORDERED: GABA100 PO (11:26)
[2021-07-23] MEDS ORDERED: Norvasc5 MG PO (11:26)
--- NOTE | 2021-07-23 16:02 | NUR ---
SHIFT SUMMARY PATIENT IS ALERT AND ORIENTED TO SELF ONLY. PATIENT WAS ADMITTED THIS MORNING FROM ED. PATIENT HAS SLURRED SPEECH WHICH IS BASELINE FOR PATIENT. PATIENT WAS ADMITTED FOR SEPSIS AND UTI. PATIENT HAS COMPLAINED OF HEADACHE THIS SHIFT. PATIENT HAS NOT COMPLAINED OF ANY OTHER PAIN, NAUSEA, SOB OR VOMITTING THIS SHIFT. VITAL SIGNS REVIEWED. PATIENT HAS NOT HAD ANY ACUTE EVENTS THIS SHIFT. PATIENT HAS BEEN RESTING MOST OF SHIFT. THIS RN GAVE UPDATES TO SON TWICE THIS SHIFT AND TRANSFERRED PHONE TO PATIENT. BED IN LOCKED AND LOWEST POSITION. CALL LIGHT IN PLACE. BED ALARM ON. PATIENT IS A STAND PIVOT TO BEDSIDE COMMODE. CONTINENT THIS SHIFT. WILL MONITOR UNTIL SHIFT CHANGE.
[2021-07-24 04:55] LABS: BASOPHILS ABSOLUTE AUTO 0.07 K/mm3 (0.00-0.23); BASOPHILS PERCENT AUTO 0 % (0-2); EOSINOPHILS PERCENT AUTO 0 % (0-6); Hematocrit 33.2 % (37.0-53.0); IMMATURE GRAN PERCENT AUTO 1 % (0-1); LYMPHOCYTES ABSOLUTE AUTO 1.18 K/mm3 (0.84-5.20); LYMPHOCYTES PERCENT AUTO 5 % (21-46); MONOCYTES ABSOLUTE AUTO 0.95 K/mm3 (0.16-1.47); MONOCYTES PERCENT AUTO 4 % (4-13); Mean Corpuscular HGB 34.3 pg (26.0-34.0); Mean Corpuscular HGB Conc 33.1 g/dL (31.5-36.5); Mean Corpuscular Volume 103 fL (80-100); Mean Platelet Volume 10.1 fL (9.1-12.4); NEUTROPHILS ABSOLUTE AUTO 21.03 K/mm3 (1.96-9.15); NEUTROPHILS PERCENT AUTO 89 % (41-73); NRBC ABSOLUTE 0.02 K/mm3 (0.00-0.02); NRBC Auto 0.1 /100 WBC (0.0-0.2); Platelet Count 228 K/mm3 (150-400); RDW Coefficient Variation 14.6 % (11.7-14.2); RDW Standard Deviation 55.2 fL (35.1-46.3); Red Blood Cell Count 3.21 M/mm3 (4.30-5.90); White Blood Cell Count 23.63 K/mm3 (4.00-11.30)
[2021-07-24 05:31] LABS: Alanine Aminotransfer (ALT/SGP 26 U/L (12-78); Albumin, Blood 2.9 g/dL (3.4-5.0); Albumin/Globulin Ratio 0.7 (0.8-1.8); Alk Phos 71 U/L (50-136); Anion Gap 5 mmol/L (6-16); Aspartate Aminotrans (AST/SGOT 13 U/L (12-37); Blood Urea Nitrogen 16 mg/dL (8-24); Bun/Creatinine Ratio 15.1 (12.0-20.0); CO2, Blood 24 mmol/L (21-32); Calcium, Blood 8.7 mg/dL (8.5-10.1); Chloride, Blood 111 mmol/L (98-108); Creatinine, Blood 1.06 mg/dL (0.60-1.20); Glomerular Filtration Rate >60 (60-); Glucose, Blood 124 mg/dL (70-99); Potassium, Blood 3.9 mmol/L (3.5-5.5); Sodium, Blood 140 mmol/L (136-145); Total Protein, Blood 6.9 g/dL (6.4-8.2)
--- NOTE | 2021-07-24 05:44 | NUR ---
SHIFT SUMMARY PATIENT AOX2 WITH SOME FORGETFULLNESS AT TIME PLEASANT LUNGS SOUNDS CLEAR PARRIS. CONT ABT/UTI TOLARATING WELL ON CONT NS AT 75MLS/HR.ASSISTED TO BEDSIDE COMMODE X1 ASSIST PO FLUIDS ENCOURAGED AND OFFERED. TELE SINUS RYTHM HR 80 .
--- NOTE | 2021-07-24 10:59 | NUR ---
IV ALREADY PLACED, NO DOCUMENTATION REGRDING LEFT AC. NO PRIOR DOCUMENTATION AVAILABLE. NO IV FOUND IN RIGHT AC SO WILL DISCONTINUE IN IV DOCUMENTATION IN [facility] WITH CLARIFICATION THAT THIS FOREST PATHOLOGY TEACHER DID NOT PHSYSICALLY DISCONTINUE THE IV ACCESS ITSELF, JUST COMPLETED DOCUMENTATION.
--- NOTE | 2021-07-24 17:41 | NUR ---
Patient complained of heartburn/indigestion twice this shift. 7up was given to him in the am, which did calm his stomach, but gave him hickups which resulted in scan amount of vomit after he choked on the fluid coming back up. later in the day, a cup of mag was ordered for indigestion- patient tolerated well and then napped. no need for ss insulin this evening.
[2021-07-25] MEDS ORDERED: MUPIROCIN1 G1 TOP (01:23)
[2021-07-25 05:11] LABS: BASOPHILS ABSOLUTE AUTO 0.04 K/mm3 (0.00-0.23); BASOPHILS PERCENT AUTO 0 % (0-2); EOSINOPHILS ABSOLUTE AUTO 0.29 K/mm3 (0.00-0.68); EOSINOPHILS PERCENT AUTO 3 % (0-6); Hematocrit 32.7 % (37.0-53.0); Hemoglobin 10.7 g/dL (13.5-17.5); IMMATURE GRAN ABSOLUTE AUTO 0.07 K/mm3 (0.00-0.10); IMMATURE GRAN PERCENT AUTO 1 % (0-1); LYMPHOCYTES PERCENT AUTO 12 % (21-46); MONOCYTES ABSOLUTE AUTO 0.69 K/mm3 (0.16-1.47); MONOCYTES PERCENT AUTO 7 % (4-13); Mean Corpuscular HGB 33.5 pg (26.0-34.0); Mean Corpuscular HGB Conc 32.7 g/dL (31.5-36.5); Mean Corpuscular Volume 103 fL (80-100); Mean Platelet Volume 10.5 fL (9.1-12.4); NEUTROPHILS ABSOLUTE AUTO 7.95 K/mm3 (1.96-9.15); NEUTROPHILS PERCENT AUTO 78 % (41-73); NRBC ABSOLUTE 0.02 K/mm3 (0.00-0.02); NRBC Auto 0.2 /100 WBC (0.0-0.2); Platelet Count 221 K/mm3 (150-400); RDW Coefficient Variation 14.2 % (11.7-14.2); RDW Standard Deviation 53.6 fL (35.1-46.3); Red Blood Cell Count 3.19 M/mm3 (4.30-5.90); White Blood Cell Count 10.24 K/mm3 (4.00-11.30)
--- NOTE | 2021-07-25 05:33 | NUR ---
PT IS SLEEPING WELL. PT WAS VERY PLESANT AND COOPERATIVE OVERNIGHT. PT DID COMPLAIN OF A HEADACHE WHICH WAS TREATED WITH TYLENOL, NO CURRENT EPISODES. PT REMINDED TO USE CALL LIGHT WHEN NEEDING HELP TO THE BATHROOM, PT COMPLIED WITH TEACHING GIVEN. PT APPEARS COMFORTABLE IN BED, CALL LIGHT AND BELONGING WITHIN REACH.
--- NOTE | 2021-07-25 18:17 | NUR ---
PATIENT TALKATIVE WITH STAFF TODAY. DENIES PAIN. LS-SOME CONGESTION. PATIENT IS EATING MEALS. IV IS SALINE LOCKED. INSULIN SS WAS NOT NEEDED THIS SHIFT.
--- NOTE | 2021-07-26 07:31 | NUR ---
76 year old MAle who was admitted on 07/23 with urosepsis planning to dc home to his home but i was told by executive creative director Stacy that may not be safe because Son who lives with PT in his dads home works fulltime & PT has unmet needs. ay need SNF prior to DC or home health services. Able to communicate , PT needs 1 standby assist to prevent falls. Using urinal . Started oral keflex last night for UTI with no reaction noted.
[2021-07-26] MEDS ORDERED: FAMO20 PO (10:59)
[2021-07-26] MEDS ORDERED: VITAMIN D5000 UNIT PO (11:00)
[2021-07-26] MEDS ORDERED: CEPH500 PO (11:00)
--- NOTE | 2021-07-26 17:13 | NUR ---
DISCHARGE SUMMARY: PATIENT DENIED PAIN AND DISCOMFORT THROUGHOUT THE SHIFT. PATIENT ABLE TO STAND WITH ASSISTANCE FROM THE BED, BUT INDEPENDENT OF STAFF. PATIENT STAND BY ASSIST TO ONE ASSIST WITH URINAL AND TRANSFER TO CHAIR. PATIENT REPORTED THAT IT NO LONGER LAYNE WHEN HE VOIDS. PATIENT REPORTED FEELING BETTER TODAY. PATIENT TOOK MORNING ANTIBIOTIC WITHOUT ANY DIFFICULTY OR REACTION. SON PICKED PATIENT UP FOR DISCHAGE. DISCHARGE INSTRUCTIONS AND EDUCATION PROVIDED. ALL QUESTIONS AND CONCERNS ADDRESSED. SON (RHONDA) REPORTED THAT HE HAD ALREADY HEAR FROM HOME HEALTH. [facility]. PATIENT DISCHARGED IN WHEELCHAIR WITH SON. PATIENT STABLE AT TIME OF DISCHARGE.
== END 2021-07-26 17:00 | disposition home health service (06) | DRG 871 ==
LOC: ER 03:17 → MEDS 04:59
PROVIDERS: Internal Medicine; Student in an Organized Health Care Education/Training Program; ADMIT Internal Medicine
DX: A41.9 Sepsis, unspecified organism (principal); G92.8 Other toxic encephalopathy; N39.0 Urinary tract infection, site not specified; Z20.822 Contact with and (suspected) exposure to COVID-19; E86.0 Dehydration; E78.5 Hyperlipidemia, unspecified; I25.10 Atherosclerotic heart disease of native coronary artery without angina pectoris; N40.0 Benign prostatic hyperplasia without lower urinary tract symptoms; I10 Essential (primary) hypertension; G47.33 Obstructive sleep apnea (adult) (pediatric); I67.9 Cerebrovascular disease, unspecified; L71.1 Rhinophyma; D53.9 Nutritional anemia, unspecified; M48.02 Spinal stenosis, cervical region; M54.50 Low back pain, unspecified; G89.29 Other chronic pain; Z96.641 Presence of right artificial hip joint; Z79.82 Long term (current) use of aspirin; Z79.899 Other long term (current) drug therapy; Z95.818 Presence of other cardiac implants and grafts; Z90.49 Acquired absence of other specified parts of digestive tract; Z90.89 Acquired absence of other organs; Z28.21 Immunization not carried out because of patient refusal; Z88.0 Allergy status to penicillin; Z79.02 Long term (current) use of antithrombotics/antiplatelets; Z88.5 Allergy status to narcotic agent; Z88.1 Allergy status to other antibiotic agents; Z86.73 Personal history of transient ischemic attack (TIA), and cerebral infarction without residual deficits; Z87.891 Personal history of nicotine dependence; Z91.09 Other allergy status, other than to drugs and biological substances
CPT/HCPCS: 0241U; 36415; 51701; 70450; 71045; 80053; 81001; 82947; 83605; 83735; 83880; 84145; 84484; 85025; 87040; 87077; 87086; 87186; 93005; 93010; 96374-59; 97110; 97112; 97162; 97530; 99285-25; A9270; J0696; J1650; J7030

== ENCOUNTER 2021-12-01 12:02 | Emergency (ER) | payer OTHER, MEDICARE ==
[~2021-12-01] VITALS: Ht 185.4 cm; Wt 93.0 kg
[~2021-12-01 12:02] MED LIST changes: +FAMO20 PO; +GABA100 PO; +MUPIROCIN1 G1 TOP; +Norvasc5 MG PO; +VITAMIN D5000 UNIT PO
== END 2021-12-01 13:25 | disposition home or self-care (01) ==
LOC: ER 12:02
DX: S01.511A Laceration without foreign body of lip, initial encounter (principal); W01.198A Fall on same level from slipping, tripping and stumbling with subsequent striking against other object, initial encounter; I10 Essential (primary) hypertension; I25.10 Atherosclerotic heart disease of native coronary artery without angina pectoris; G47.30 Sleep apnea, unspecified; Z88.0 Allergy status to penicillin; Z88.1 Allergy status to other antibiotic agents; Z88.5 Allergy status to narcotic agent; Z88.8 Allergy status to other drugs, medicaments and biological substances; Z91.048 Other nonmedicinal substance allergy status; Z79.899 Other long term (current) drug therapy; Z87.891 Personal history of nicotine dependence
CPT/HCPCS: 12011; 99282-25

== ENCOUNTER → 2022-01-16 | Outpatient (CLI) | payer MEDICARE ==
[~2022-01-16] MED LIST changes: +NYSTOP15 GM TOP
== END | disposition home or self-care (01) ==
LOC: LAB SHORT 13:55 → LAB 13:55
DX: R30.0 Dysuria (principal)
CPT/HCPCS: 87086

== ENCOUNTER 2022-04-02 21:43 | Emergency (ER) | payer MEDICARE ==
[~2022-04-02] VITALS: Ht 185.4 cm; Wt 93.0 kg
[2022-04-03] MEDS ORDERED: Cyclobenzaprine5 MG PO (02:08)
[2022-04-03] MEDS ORDERED: NAPROXEN250 M1 PO (02:08)
== END 2022-04-03 02:26 | disposition home or self-care (01) ==
LOC: ER 21:43
DX: M62.830 Muscle spasm of back (principal); M54.50 Low back pain, unspecified; I10 Essential (primary) hypertension; I25.10 Atherosclerotic heart disease of native coronary artery without angina pectoris; E78.5 Hyperlipidemia, unspecified; G47.30 Sleep apnea, unspecified; N40.0 Benign prostatic hyperplasia without lower urinary tract symptoms; Z88.1 Allergy status to other antibiotic agents; Z88.0 Allergy status to penicillin; Z91.048 Other nonmedicinal substance allergy status; Z88.5 Allergy status to narcotic agent; Z79.899 Other long term (current) drug therapy; Z79.82 Long term (current) use of aspirin; Z86.73 Personal history of transient ischemic attack (TIA), and cerebral infarction without residual deficits
CPT/HCPCS: 72100; A9270; J1885

== ENCOUNTER 2022-05-22 16:14 | Emergency (ER) | payer MEDICARE ==
[~2022-05-22] VITALS: Ht 182.9 cm; Wt 104.3 kg
[~2022-05-22 16:14] MED LIST changes: +Cyclobenzaprine5 MG PO; +NAPROXEN250 M1 PO
== END 2022-05-22 18:15 | disposition home or self-care (01) ==
LOC: ER 16:14
DX: S09.90XA Unspecified injury of head, initial encounter (principal); I10 Essential (primary) hypertension; I25.10 Atherosclerotic heart disease of native coronary artery without angina pectoris; W05.0XXA Fall from non-moving wheelchair, initial encounter; Z86.73 Personal history of transient ischemic attack (TIA), and cerebral infarction without residual deficits; Z87.891 Personal history of nicotine dependence; Z95.5 Presence of coronary angioplasty implant and graft; Z79.82 Long term (current) use of aspirin; Z79.899 Other long term (current) drug therapy
CPT/HCPCS: 36415; 70450; 72125; 99284-25; A9270; J2405

== ENCOUNTER → 2023-01-09 | Outpatient (CLI) | payer MEDICARE ==
[~2023-01-09] MED LIST changes: +TAMSULOSIN HCL0.4 M1 PO; +TRIA15CR3
== END ==
LOC: LAB 10:47 → LAB SHORT 10:47
DX: L08.9 Local infection of the skin and subcutaneous tissue, unspecified (principal)
CPT/HCPCS: 87070; 87077; 87186

== ENCOUNTER 2023-01-24 20:39 | Inpatient (IN) | payer MEDICARE ==
[~2023-01-24] VITALS: Ht 188 cm; Wt 102.0 kg
[2023-01-24 21:06] LABS: BASOPHILS ABSOLUTE AUTO 0.07 K/mm3 (0.00-0.23); BASOPHILS PERCENT AUTO 1 % (0-2); EOSINOPHILS ABSOLUTE AUTO 0.37 K/mm3 (0.00-0.68); EOSINOPHILS PERCENT AUTO 3 % (0-6); Hemoglobin 13.9 g/dL (13.5-17.5); IMMATURE GRAN ABSOLUTE AUTO 0.11 K/mm3 (0.00-0.10); IMMATURE GRAN PERCENT AUTO 1 % (0-1); LYMPHOCYTES ABSOLUTE AUTO 2.56 K/mm3 (0.84-5.20); LYMPHOCYTES PERCENT AUTO 23 % (21-46); MONOCYTES ABSOLUTE AUTO 1.04 K/mm3 (0.16-1.47); MONOCYTES PERCENT AUTO 9 % (4-13); Mean Corpuscular HGB 34.1 pg (26.0-34.0); Mean Corpuscular HGB Conc 34.8 g/dL (31.5-36.5); Mean Corpuscular Volume 98 fL (80-100); Mean Platelet Volume 10.3 fL (9.1-12.4); NEUTROPHILS ABSOLUTE AUTO 6.99 K/mm3 (1.96-9.15); NEUTROPHILS PERCENT AUTO 63 % (41-73); NRBC ABSOLUTE 0.02 K/mm3 (0.00-0.02); NRBC Auto 0.2 /100 WBC (0.0-0.2); Platelet Count 274 K/mm3 (150-400); RDW Coefficient Variation 13.6 % (11.7-14.2); RDW Standard Deviation 49.2 fL (35.1-46.3); Red Blood Cell Count 4.08 M/mm3 (4.30-5.90); White Blood Cell Count 11.14 K/mm3 (4.00-11.30)
[2023-01-24 21:24] LABS: Alanine Aminotransfer (ALT/SGP 60 U/L (12-78); Albumin, Blood 3.9 g/dL (3.4-5.0); Albumin/Globulin Ratio 0.9 (0.8-1.8); Alk Phos 83 U/L (50-136); Anion Gap 6 mmol/L (6-16); Aspartate Aminotrans (AST/SGOT 58 U/L (12-37); Bilirubin, Total 0.4 mg/dL (0.1-1.0); Blood Urea Nitrogen 17 mg/dL (8-24); CO2, Blood 25 mmol/L (21-32); Calcium, Blood 9.2 mg/dL (8.5-10.1); Chloride, Blood 109 mmol/L (98-108); Ethanol (Alcohol), Blood, Med <3 mg/dL; Globulin, Blood 4.2 g/dL (2.2-4.0); Glomerular Filtration Rate 78 (60-); Glucose, Blood 170 mg/dL (70-99); Potassium, Blood 4.1 mmol/L (3.5-5.5); Sodium, Blood 140 mmol/L (136-145); Total Protein, Blood 8.1 g/dL (6.4-8.2)
--- NOTE | 2023-01-24 23:38 | NUR ---
PT CHART REVEIWED FOR ADMISSION
[2023-01-25 00:38] VITALS: BP 137/76
[2023-01-25 05:40] LABS: BASOPHILS ABSOLUTE AUTO 0.03 K/mm3 (0.00-0.23); BASOPHILS PERCENT AUTO 0 % (0-2); EOSINOPHILS ABSOLUTE AUTO 0.01 K/mm3 (0.00-0.68); EOSINOPHILS PERCENT AUTO 0 % (0-6); Hematocrit 38.4 % (37.0-53.0); Hemoglobin 13.2 g/dL (13.5-17.5); IMMATURE GRAN ABSOLUTE AUTO 0.07 K/mm3 (0.00-0.10); IMMATURE GRAN PERCENT AUTO 1 % (0-1); LYMPHOCYTES ABSOLUTE AUTO 0.54 K/mm3 (0.84-5.20); LYMPHOCYTES PERCENT AUTO 7 % (21-46); MONOCYTES ABSOLUTE AUTO 0.08 K/mm3 (0.16-1.47); MONOCYTES PERCENT AUTO 1 % (4-13); Mean Corpuscular HGB 33.9 pg (26.0-34.0); Mean Corpuscular HGB Conc 34.4 g/dL (31.5-36.5); Mean Corpuscular Volume 99 fL (80-100); Mean Platelet Volume 10.4 fL (9.1-12.4); NEUTROPHILS ABSOLUTE AUTO 6.77 K/mm3 (1.96-9.15); NEUTROPHILS PERCENT AUTO 90 % (41-73); Platelet Count 242 K/mm3 (150-400); RDW Coefficient Variation 13.4 % (11.7-14.2); RDW Standard Deviation 48.6 fL (35.1-46.3); Red Blood Cell Count 3.89 M/mm3 (4.30-5.90)
--- NOTE | 2023-01-25 05:56 | NUR ---
SHIFT SUMMARY PT ARRIVED TO UNIT AT 0035. PT HAS SLURRED AND MUMBLED SPEECH WHICH CAN BE UNINTELLIGIBLE AT TIMES. LEFT ARM AND LEG WEAKER THAN RIGHT. PT DISORIENTED TO CURRENT DATE, AND KEEPS STATING HIS BIRTHDAY IS 1945. PT IMPULSIVE, BED ALARM ON. PT PULLED IV, NEW IV PLACED IN R WRIST AND WRAPPED WITH COBAN. FIRE SAFETY EDUCATION PROVIDED TO PATIENT, Q1H FIRE SAFETY CHECKS COMPLETED, NO SOURCES OF IGNITION FOUND.
[2023-01-25 06:09] VITALS: BP 137/76
[2023-01-25 06:22] LABS: Alanine Aminotransfer (ALT/SGP 50 U/L (12-78); Albumin, Blood 3.5 g/dL (3.4-5.0); Alk Phos 74 U/L (50-136); Anion Gap 7 mmol/L (6-16); Aspartate Aminotrans (AST/SGOT 29 U/L (12-37); Bilirubin, Total 0.4 mg/dL (0.1-1.0); Blood Urea Nitrogen 17 mg/dL (8-24); Bun/Creatinine Ratio 16.5 (12.0-20.0); CHOL/HDL RATIO 4.4; CO2, Blood 22 mmol/L (21-32); Chloride, Blood 112 mmol/L (98-108); Cholesterol 148 mg/dL (50-200); Creatinine, Blood 1.03 mg/dL (0.60-1.20); Globulin, Blood 3.6 g/dL (2.2-4.0); Glomerular Filtration Rate 76 (60-); Glucose, Blood 196 mg/dL (70-99); HDL Cholesterol 34 mg/dL (>39); Low Density Lipoprotein Chol 103 mg/dL (0-110); Potassium, Blood 4.2 mmol/L (3.5-5.5); Sodium, Blood 141 mmol/L (136-145); Total Protein, Blood 7.1 g/dL (6.4-8.2); Triglycerides 55 mg/dL (30-160); Very Low Density Lipoprot Chol 11 mg/dL (6-32)
[2023-01-25 08:06] VITALS: BP 144/84
[2023-01-25 15:56] VITALS: BP 120/63
--- NOTE | 2023-01-25 17:01 | NUR ---
SHIFT SUMMARY PRESENTS WITH LEFT SIDED WEAKNESS AND NEGLECT, SON STATES HE APPEARS TO BE AT BASELINE. SLURRED SPEECH PERSISTS BUT REMAINS UNCHANGED FROM MORNING ASSESMENT DOES DEGREE OF WEAKNESS. PARTICIPATING WITH THERAPY, TOLERATING WELL. CM CONSULTED FOR HOME EQUIPMENT NEEDS FOR SAFE TRANSFERS. WILL CONTINTINUE TO MONITOR
[2023-01-26 05:35] VITALS: BP 126/66
--- NOTE | 2023-01-26 06:11 | NUR ---
SHIFT SUMMARY NO EVENTS OVERNIGHT, MENTAL STATUS AND SPEECH MUCH IMPROVED FROM YESTERDAY, L ARM AND LEG SLIGHTLY WEAKER THAN R. PT CALLING APPROPRIATELY AND ASKING FOR ASSITANCE PRIOR TO GETTING OOB. NO COMPLAINTS OVERNIGHT, PT SLEPT. Q1H FIRE SAFETY CHECKS PERFORMED. NO IGNITION SOURCES FOUND
[2023-01-26 07:17] VITALS: BP 106/59
[2023-01-26] MEDS ORDERED: CLOP75 PO (11:54)
[2023-01-26] MEDS ORDERED: EZET10 PO (11:54)
--- NOTE | 2023-01-26 14:08 | NUR ---
Patient AOx4, vitals stable. CT done this AM. MD spoke to neurology no f/u needed. MD reviewed results with patient and son. Discharge summary reviewed with patient. Patient left unit at 1240.
== END 2023-01-26 18:06 | disposition home health service (06) | DRG 93 ==
LOC: ER 20:39 → MEDS 20:40 → ENPENDDIS 01-26 11:58 → MEDS 01-26 18:06
PROVIDERS: Emergency Medicine; ADMIT Student in an Organized Health Care Education/Training Program
PROC: 5A09357 Assistance with Respiratory Ventilation, Less than 24 Consecutive Hours, Continuous Positive Airway Pressure (ICD-10-PCS; principal; 2023-01-25)
DX: R29.810 Facial weakness (principal); I65.01 Occlusion and stenosis of right vertebral artery; I25.10 Atherosclerotic heart disease of native coronary artery without angina pectoris; I10 Essential (primary) hypertension; E78.5 Hyperlipidemia, unspecified; M54.9 Dorsalgia, unspecified; G89.29 Other chronic pain; N40.0 Benign prostatic hyperplasia without lower urinary tract symptoms; R07.9 Chest pain, unspecified; D63.8 Anemia in other chronic diseases classified elsewhere; R47.1 Dysarthria and anarthria; G47.33 Obstructive sleep apnea (adult) (pediatric); Z79.2 Long term (current) use of antibiotics; Z88.0 Allergy status to penicillin; Z79.02 Long term (current) use of antithrombotics/antiplatelets; Z88.5 Allergy status to narcotic agent; Z88.8 Allergy status to other drugs, medicaments and biological substances; Z86.73 Personal history of transient ischemic attack (TIA), and cerebral infarction without residual deficits; Z90.49 Acquired absence of other specified parts of digestive tract; Z87.891 Personal history of nicotine dependence; Z91.048 Other nonmedicinal substance allergy status; Z79.82 Long term (current) use of aspirin; Z79.899 Other long term (current) drug therapy; Z91.198 Patient's noncompliance with other medical treatment and regimen for other reason; Z99.89 Dependence on other enabling machines and devices; Z95.5 Presence of coronary angioplasty implant and graft
CPT/HCPCS: 36415; 70450; 70496; 70498; 80053; 80061; 82947; 83735; 84484; 85025; 93005; 93010; 96372; 96374-59; 96375-59; 97162; 97530; 99285-25; A9270; G0378; G0480; J1200; J1650; J2930; Q9967

== ENCOUNTER 2023-03-29 06:44 | Day surgery (SDC) | payer MEDICARE ==
[2023-03-29] VITALS (9 sets, daily range): BP systolic 109–193; BP diastolic 80–113
[~2023-03-29] VITALS: Ht 185.4 cm; Wt 102.0 kg
[~2023-03-29 06:44] MED LIST changes: +Amlodipine Besyl5 MG PO; +METO50ER PO
[2023-03-29 07:51] LABS: BASOPHILS ABSOLUTE AUTO 0.06 K/mm3 (0.00-0.23); BASOPHILS PERCENT AUTO 1 % (0-2); EOSINOPHILS ABSOLUTE AUTO 0.24 K/mm3 (0.00-0.68); EOSINOPHILS PERCENT AUTO 2 % (0-6); Hematocrit 40.4 % (37.0-53.0); Hemoglobin 13.7 g/dL (13.5-17.5); IMMATURE GRAN PERCENT AUTO 1 % (0-1); LYMPHOCYTES ABSOLUTE AUTO 2.49 K/mm3 (0.84-5.20); LYMPHOCYTES PERCENT AUTO 24 % (21-46); MONOCYTES ABSOLUTE AUTO 0.98 K/mm3 (0.16-1.47); MONOCYTES PERCENT AUTO 10 % (4-13); Mean Corpuscular HGB 33.9 pg (26.0-34.0); Mean Corpuscular HGB Conc 33.9 g/dL (31.5-36.5); Mean Corpuscular Volume 100 fL (80-100); Mean Platelet Volume 10.2 fL (9.1-12.4); NEUTROPHILS ABSOLUTE AUTO 6.36 K/mm3 (1.96-9.15); NEUTROPHILS PERCENT AUTO 62 % (41-73); NRBC ABSOLUTE 0.02 K/mm3 (0.00-0.02); NRBC Auto 0.2 /100 WBC (0.0-0.2); Platelet Count 267 K/mm3 (150-400); RDW Standard Deviation 51.7 fL (35.1-46.3); Red Blood Cell Count 4.04 M/mm3 (4.30-5.90); White Blood Cell Count 10.23 K/mm3 (4.00-11.30)
[2023-03-29 08:04] LABS: International Normalized Ratio 0.99; Prothrombin Time Results 10.4 Sec (9.7-11.5)
[2023-03-29 08:10] LABS: Bun/Creatinine Ratio 17.1 (12.0-20.0); Creatinine, Blood 1.11 mg/dL (0.60-1.20); Potassium, Blood 3.9 mmol/L (3.5-5.5)
--- NOTE | 2023-03-29 08:10 | NUR ---
PT FAMILY IN ROOM.
--- NOTE | 2023-03-29 10:30 | NUR ---
10cc AIR REMOVED FROM R WRIST TR BAND. -BLEEDING OR SWELLING.
--- NOTE | 2023-03-29 11:25 | NUR ---
R WRIST TR BAND REMOVED. CLOTH DOT DRSG PLACED OVER PUNCTURE AREA AND R WRIST SPLINT REAPPLIED. PT AND SON VERBALIZED UNDERSTANDING OR WRITTEN AND VERBAL D/C INST. IV REMOVED. PT TAKEN OUT OF THE HRT CENTER VIA W/C.
== END 2023-03-29 11:30 | disposition home or self-care (01) ==
LOC: MHTC 06:44
PROVIDERS: Student in an Organized Health Care Education/Training Program
DX: R07.9 Chest pain, unspecified (principal); Z88.5 Allergy status to narcotic agent; Z88.0 Allergy status to penicillin; I10 Essential (primary) hypertension; G47.33 Obstructive sleep apnea (adult) (pediatric); I25.10 Atherosclerotic heart disease of native coronary artery without angina pectoris
CPT/HCPCS: 76937; 80048; 85025; 85610; 93458; 99152; C1769; C1894; J1644; J2250; J3010; J7030; J7050; Q9967

== ENCOUNTER 2023-05-16 20:23 | Emergency (ER) | payer MEDICARE ==
[~2023-05-16] VITALS: Ht 177.8 cm; Wt 90.7 kg
[2023-05-16 20:43] LABS: Base Excess Venous 3.1 mmol/L; Bicarbonate Venous 25.6 mmol/L (24.0-30.0); PCO2 Venous 47.8 mmHg (38-42); pH Blood Venous 7.38 (7.34-7.37)
[2023-05-16 20:57] LABS: BASOPHILS ABSOLUTE AUTO 0.06 K/mm3 (0.00-0.23); BASOPHILS PERCENT AUTO 1 % (0-2); EOSINOPHILS ABSOLUTE AUTO 0.39 K/mm3 (0.00-0.68); EOSINOPHILS PERCENT AUTO 4 % (0-6); Hematocrit 41.1 % (37.0-53.0); IMMATURE GRAN ABSOLUTE AUTO 0.06 K/mm3 (0.00-0.10); IMMATURE GRAN PERCENT AUTO 1 % (0-1); LYMPHOCYTES ABSOLUTE AUTO 2.14 K/mm3 (0.84-5.20); LYMPHOCYTES PERCENT AUTO 22 % (21-46); MONOCYTES ABSOLUTE AUTO 0.86 K/mm3 (0.16-1.47); MONOCYTES PERCENT AUTO 9 % (4-13); Mean Corpuscular HGB 34.4 pg (26.0-34.0); Mean Corpuscular HGB Conc 34.1 g/dL (31.5-36.5); Mean Corpuscular Volume 101 fL (80-100); Mean Platelet Volume 10.2 fL (9.1-12.4); NEUTROPHILS ABSOLUTE AUTO 6.38 K/mm3 (1.96-9.15); NEUTROPHILS PERCENT AUTO 65 % (41-73); NRBC ABSOLUTE 0.02 K/mm3 (0.00-0.02); NRBC Auto 0.2 /100 WBC (0.0-0.2); Platelet Count 276 K/mm3 (150-400); RDW Coefficient Variation 13.3 % (11.7-14.2); RDW Standard Deviation 49.9 fL (35.1-46.3); Red Blood Cell Count 4.07 M/mm3 (4.30-5.90); White Blood Cell Count 9.89 K/mm3 (4.00-11.30)
[2023-05-16 21:08] LABS: Bun/Creatinine Ratio 11.5 (12.0-20.0); Calcium, Blood 9.1 mg/dL (8.5-10.1); Creatinine, Blood 1.13 mg/dL (0.60-1.20); Potassium, Blood 3.4 mmol/L (3.5-5.5)
[2023-05-16] MEDS ORDERED: BENZ100A PO (23:45)
[2023-05-17 01:04] VITALS: BP 172/93
== END 2023-05-17 01:04 | disposition home or self-care (01) ==
LOC: ER 20:23
PROVIDERS: Student in an Organized Health Care Education/Training Program
DX: J44.9 Chronic obstructive pulmonary disease, unspecified (principal); J06.9 Acute upper respiratory infection, unspecified; Z88.8 Allergy status to other drugs, medicaments and biological substances; Z88.0 Allergy status to penicillin; Z91.048 Other nonmedicinal substance allergy status; Z88.5 Allergy status to narcotic agent; Z79.899 Other long term (current) drug therapy; I10 Essential (primary) hypertension; I25.10 Atherosclerotic heart disease of native coronary artery without angina pectoris; G47.30 Sleep apnea, unspecified; Z87.891 Personal history of nicotine dependence
CPT/HCPCS: 71046; 80048; 82803; 82947; 84484; 85025; 93005; 93010; 96374; 99285-25; A9270; J1885

== ENCOUNTER 2023-12-06 17:58 | Emergency (ER) | payer OTHER ==
[~2023-12-06] VITALS: Ht 185.4 cm; Wt 106.6 kg
[~2023-12-06 17:58] MED LIST changes: +BENZ100A PO
[2023-12-06] MEDS ORDERED: NS 500 ML IV SCH (18:05)
[2023-12-06 18:41] LABS: BASOPHILS ABSOLUTE AUTO 0.04 K/mm3 (0.00-0.23); BASOPHILS PERCENT AUTO 1 % (0-2); EOSINOPHILS PERCENT AUTO 4 % (0-6); Hematocrit 36.5 % (37.0-53.0); Hemoglobin 12.4 g/dL (13.5-17.5); IMMATURE GRAN ABSOLUTE AUTO 0.05 K/mm3 (0.00-0.10); IMMATURE GRAN PERCENT AUTO 1 % (0-1); LYMPHOCYTES ABSOLUTE AUTO 0.78 K/mm3 (0.84-5.20); LYMPHOCYTES PERCENT AUTO 10 % (21-46); MONOCYTES ABSOLUTE AUTO 0.88 K/mm3 (0.16-1.47); MONOCYTES PERCENT AUTO 11 % (4-13); Mean Corpuscular HGB 34.4 pg (26.0-34.0); Mean Corpuscular Volume 101 fL (80-100); Mean Platelet Volume 10.5 fL (9.1-12.4); NEUTROPHILS PERCENT AUTO 74 % (41-73); Platelet Count 239 K/mm3 (150-400); RDW Coefficient Variation 13.7 % (11.7-14.2); RDW Standard Deviation 51.2 fL (35.1-46.3); White Blood Cell Count 7.85 K/mm3 (4.00-11.30)
[2023-12-06] MEDS ORDERED: Acetaminophen 500 MG Tab PO ONE (18:45)
[2023-12-06 18:46] LABS: Albumin, Blood 3.7 g/dL (3.4-5.0); Bilirubin, Total 0.9 mg/dL (0.1-1.0); Bun/Creatinine Ratio 11.9 (12.0-20.0); Calcium, Blood 8.8 mg/dL (8.5-10.1); Creatinine, Blood 1.26 mg/dL (0.60-1.20); Globulin, Blood 3.8 g/dL (2.2-4.0); Potassium, Blood 3.9 mmol/L (3.5-5.5); Total Protein, Blood 7.5 g/dL (6.4-8.2)
[2023-12-06 20:08] VITALS: BP 108/47
== END 2023-12-06 20:15 | disposition home or self-care (01) ==
LOC: ER 17:58
PROVIDERS: Emergency Medicine
DX: U07.1 COVID-19 (principal); I12.9 Hypertensive chronic kidney disease with stage 1 through stage 4 chronic kidney disease, or unspecified chronic kidney disease; N18.9 Chronic kidney disease, unspecified; E78.5 Hyperlipidemia, unspecified; G47.30 Sleep apnea, unspecified; Z88.8 Allergy status to other drugs, medicaments and biological substances; Z88.1 Allergy status to other antibiotic agents; Z88.0 Allergy status to penicillin; Z88.5 Allergy status to narcotic agent; Z91.048 Other nonmedicinal substance allergy status; Z79.899 Other long term (current) drug therapy; Z87.891 Personal history of nicotine dependence
CPT/HCPCS: 70450; 80053; 84484; 85025; 93005; 93010; 96360; 99291-25; A9270; J7030

== ENCOUNTER → 2024-03-12 | Outpatient (CLI) | payer OTHER | LOC: LAB SHORT 07:18 → LAB 07:18 | DX: D48.5 Neoplasm of uncertain behavior of skin (principal) | CPT/HCPCS: 88312 ==

== ENCOUNTER 2024-04-08 17:26 | Observation (INO) | payer OTHER ==
[~2024-04-08] VITALS: Ht 188 cm; Wt 104.3 kg
[2024-04-08 18:05] LABS: BASOPHILS ABSOLUTE AUTO 0.08 K/mm3 (0.00-0.23); BASOPHILS PERCENT AUTO 1 % (0-2); EOSINOPHILS PERCENT AUTO 3 % (0-6); Hematocrit 39.7 % (37.0-53.0); Hemoglobin 13.7 g/dL (13.5-17.5); IMMATURE GRAN ABSOLUTE AUTO 0.09 K/mm3 (0.00-0.10); IMMATURE GRAN PERCENT AUTO 1 % (0-1); LYMPHOCYTES ABSOLUTE AUTO 1.15 K/mm3 (0.84-5.20); LYMPHOCYTES PERCENT AUTO 8 % (21-46); MONOCYTES ABSOLUTE AUTO 0.93 K/mm3 (0.16-1.47); MONOCYTES PERCENT AUTO 6 % (4-13); Mean Corpuscular HGB 34.9 pg (26.0-34.0); Mean Corpuscular HGB Conc 34.5 g/dL (31.5-36.5); Mean Corpuscular Volume 101 fL (80-100); Mean Platelet Volume 10.5 fL (9.1-12.4); NEUTROPHILS PERCENT AUTO 82 % (41-73); Platelet Count 294 K/mm3 (150-400); RDW Coefficient Variation 13.9 % (11.7-14.2); RDW Standard Deviation 51.8 fL (35.1-46.3); Red Blood Cell Count 3.93 M/mm3 (4.30-5.90); White Blood Cell Count 15.15 K/mm3 (4.00-11.30)
[2024-04-08] MEDS ORDERED: Albuterol 2.5 MG/3 ML VIAL INH SCH (18:20)
[2024-04-08] MEDS ORDERED: Ipratropium Bromide INH 0.02% 0.5 mg/2.5ML Vial INH SCH (18:20)
[2024-04-08] MEDS ORDERED: LevoFLOXacin 500 MG Tab PO ONE (18:20)
[2024-04-08] MEDS ORDERED: MethylPREDNISolone Sod Succ 125 MG Vial IV ONE (18:20)
[2024-04-08 18:27] LABS: Albumin, Blood 3.7 g/dL (3.4-5.0); Albumin/Globulin Ratio 0.8 (0.8-1.8); Bun/Creatinine Ratio 13.6 (12.0-20.0); Creatinine, Blood 1.1 mg/dL (0.60-1.20); Globulin, Blood 4.5 g/dL (2.2-4.0); Potassium, Blood 3.9 mmol/L (3.5-5.5); Total Protein, Blood 8.2 g/dL (6.4-8.2)
[2024-04-08 18:40] LABS: Influenza A, PCR NEGATIVE (NEGATIVE); Influenza B, PCR NEGATIVE (NEGATIVE); Resp Syncytial Virus, PCR NEGATIVE (NEGATIVE); SARS-Cov-2 (COVID-19) PCR, MMC NEGATIVE (NEGATIVE)
[2024-04-08] MEDS ORDERED: NS 1,000 ML IV SCH (20:35)
[2024-04-08] MEDS ORDERED: Acetaminophen 500 MG Tab PO ONE (20:35)
[2024-04-08] MEDS ORDERED: Ipratropium/Albuterol SulF 2.5-0.5MG/3 ML Amp INH PRN (20:55)
[2024-04-08] MEDS ORDERED: Ondansetron HCl 2 MG / ML 2ML Vial IV PRN (20:55)
[2024-04-08] MEDS ORDERED: Enoxaparin 40 MG/0.4 ML SYR SC SCH (21:00)
[2024-04-08 21:51] VITALS: BP 128/67
[2024-04-08] MEDS ORDERED: FLU VACC TS2024-25(6MOS UP)/PF 45 MCG/0.5 ML SYRINGE IM ONE (22:00)
[2024-04-09] MEDS ORDERED: Nitroglycerin 0.4 MG SUBL SL PRN (00:05)
[2024-04-09] MEDS ORDERED: Acetaminophen 325 MG TABLET PO PRN (00:05)
[2024-04-09] MEDS ORDERED: Mupirocin 2% Ointment 22 GM TOP PRN (00:05)
[2024-04-09] MEDS ORDERED: Triamcinolone Acet 0.1% Cream 15 gm TOP PRN (00:05)
[2024-04-09 02:57] VITALS: BP 120/55
[2024-04-09 05:40] LABS: BASOPHILS PERCENT AUTO 0 % (0-2); EOSINOPHILS PERCENT AUTO 0 % (0-6); Hematocrit 35.1 % (37.0-53.0); Hemoglobin 11.8 g/dL (13.5-17.5); IMMATURE GRAN ABSOLUTE AUTO 0.05 K/mm3 (0.00-0.10); IMMATURE GRAN PERCENT AUTO 1 % (0-1); LYMPHOCYTES PERCENT AUTO 4 % (21-46); MONOCYTES ABSOLUTE AUTO 0.11 K/mm3 (0.16-1.47); MONOCYTES PERCENT AUTO 2 % (4-13); Mean Corpuscular HGB 34.4 pg (26.0-34.0); Mean Corpuscular HGB Conc 33.6 g/dL (31.5-36.5); Mean Corpuscular Volume 102 fL (80-100); Mean Platelet Volume 10.6 fL (9.1-12.4); NEUTROPHILS ABSOLUTE AUTO 6.78 K/mm3 (1.96-9.15); NEUTROPHILS PERCENT AUTO 94 % (41-73); Platelet Count 256 K/mm3 (150-400); RDW Coefficient Variation 14.1 % (11.7-14.2); RDW Standard Deviation 53.2 fL (35.1-46.3); Red Blood Cell Count 3.43 M/mm3 (4.30-5.90); White Blood Cell Count 7.24 K/mm3 (4.00-11.30)
[2024-04-09 06:59] LABS: Albumin, Blood 3.3 g/dL (3.4-5.0); Albumin/Globulin Ratio 0.8 (0.8-1.8); Bilirubin, Total 0.5 mg/dL (0.1-1.0); Bun/Creatinine Ratio 17.5 (12.0-20.0); Calcium, Blood 9.6 mg/dL (8.5-10.1); Creatinine, Blood 1.26 mg/dL (0.60-1.20); Globulin, Blood 4.1 g/dL (2.2-4.0); Potassium, Blood 3.9 mmol/L (3.5-5.5); Total Protein, Blood 7.4 g/dL (6.4-8.2)
[2024-04-09 07:26] VITALS: BP 153/66
--- NOTE | 2024-04-09 07:48 | NUR ---
SHIFT SUMMARY PATIENT ADMITTED AND IV FLUIDS INFUSING, SLEPT WELL, RANDOM COUGH AND SNEEZE. UNABLE TO PRODUCE THICK SPUTUM. ONLY THIN WHITE. TELE SR 84. HAS NOT VOIDED THIS SHIFT. ORDER NPO WRONG AND ER NURSE WAS SUPPOSE TO UPDATE. WILL CALL THIS MORNING.
[2024-04-09] MEDS ORDERED: Metoprolol Succinate 50 MG TABCR PO SCH (09:00)
[2024-04-09] MEDS ORDERED: MethylPREDNISolone Sod Succ 125 MG Vial IV SCH ×2 (09:00)
[2024-04-09] MEDS ORDERED: GuaiFENesin 600 MG TabCR PO SCH (10:00)
[2024-04-09 12:53] LABS: Hematocrit 36.7 % (37.0-53.0); Hemoglobin 12.3 g/dL (13.5-17.5)
[2024-04-09] MEDS ORDERED: Calcium Carbonate 500 MG Tab Chew PO PRN (13:10)
[2024-04-09 15:39] VITALS: BP 134/67
[2024-04-09] MEDS ORDERED: Calcium Carbon500 MG PO (15:55)
[2024-04-09] MEDS ORDERED: FLUTICASONE-SA1 EA11 INH (15:56)
[2024-04-09] MEDS ORDERED: GUAI600T33 PO (15:58)
[2024-04-09] MEDS ORDERED: LEVO750 PO (15:59)
[2024-04-09] MEDS ORDERED: IPRAT-ALBUT 0.5-3 ML INH (15:59)
[2024-04-09] MEDS ORDERED: PRED20 PO (16:00)
--- NOTE | 2024-04-09 17:54 | NUR ---
DISCHARGE NOTE: DISCUSSED DISCHARGE WITH PATIENT. PATIENT WAS ABLE TO GATHER BELONGINGS. PATIAENT'S SON RHONDA WAS CONTACTED TO COME GET PATIENT. PATIENT'S IV AND TELE REMOVED. PATIENT'S SON ARRIVED AND TOOK PATIENT HOME. NO SIGNS OR SYMPTOMS OF DISTRESS DURING DISCHARGE.
[2024-04-09] MEDS ORDERED: LevoFLOXacin 750 MG/D5W 150ML 150 ML IV SCH (18:00)
== END 2024-04-09 17:49 | disposition home or self-care (01) ==
LOC: ER 17:26 → MEDS 17:27 → ENPENDDIS 04-09 14:46 → MEDS 04-09 17:49
PROVIDERS: Internal Medicine; Student in an Organized Health Care Education/Training Program; ADMIT Internal Medicine
DX: J44.1 Chronic obstructive pulmonary disease with (acute) exacerbation (principal); I10 Essential (primary) hypertension; I25.10 Atherosclerotic heart disease of native coronary artery without angina pectoris; E78.5 Hyperlipidemia, unspecified; G47.30 Sleep apnea, unspecified; N40.0 Benign prostatic hyperplasia without lower urinary tract symptoms; G89.29 Other chronic pain; M54.9 Dorsalgia, unspecified; Z87.891 Personal history of nicotine dependence; Z79.02 Long term (current) use of antithrombotics/antiplatelets; Z79.899 Other long term (current) drug therapy; Z88.5 Allergy status to narcotic agent; Z88.0 Allergy status to penicillin; Z88.1 Allergy status to other antibiotic agents; Z88.8 Allergy status to other drugs, medicaments and biological substances; Z91.048 Other nonmedicinal substance allergy status; Z86.73 Personal history of transient ischemic attack (TIA), and cerebral infarction without residual deficits
CPT/HCPCS: 0241U; 36415; 71045; 80053; 84484; 85014; 85018; 85025; 87070; 87205; 93005; 93010; 94644; 94664; 96374; 97161; 97530; 99285-25; A9270; G0378; J1650; J2919; J7030

== ENCOUNTER 2024-05-12 02:03 | Inpatient (IN) | payer OTHER ==
[~2024-05-12] VITALS: Ht 185.4 cm; Wt 99.8 kg
[~2024-05-12 02:03] MED LIST changes: +Calcium Carbon500 MG PO; +FLUTICASONE-SA1 EA11 INH; +GUAI600T33 PO; +IPRAT-ALBUT 0.5-3 ML INH; +LEVO750 PO
[2024-05-12 02:32] LABS: BASOPHILS ABSOLUTE AUTO 0.04 K/mm3 (0.00-0.23); BASOPHILS PERCENT AUTO 0 % (0-2); EOSINOPHILS ABSOLUTE AUTO 0.26 K/mm3 (0.00-0.68); EOSINOPHILS PERCENT AUTO 2 % (0-6); Hematocrit 37.3 % (37.0-53.0); Hemoglobin 12.5 g/dL (13.5-17.5); IMMATURE GRAN ABSOLUTE AUTO 0.13 K/mm3 (0.00-0.10); IMMATURE GRAN PERCENT AUTO 1 % (0-1); LYMPHOCYTES ABSOLUTE AUTO 1.18 K/mm3 (0.84-5.20); LYMPHOCYTES PERCENT AUTO 9 % (21-46); MONOCYTES ABSOLUTE AUTO 0.85 K/mm3 (0.16-1.47); MONOCYTES PERCENT AUTO 7 % (4-13); Mean Corpuscular HGB 34.5 pg (26.0-34.0); Mean Corpuscular HGB Conc 33.5 g/dL (31.5-36.5); Mean Corpuscular Volume 103 fL (80-100); Mean Platelet Volume 10.3 fL (9.1-12.4); NEUTROPHILS ABSOLUTE AUTO 10.09 K/mm3 (1.96-9.15); NEUTROPHILS PERCENT AUTO 80 % (41-73); NRBC ABSOLUTE 0.03 K/mm3 (0.00-0.02); NRBC Auto 0.2 /100 WBC (0.0-0.2); Platelet Count 257 K/mm3 (150-400); RDW Coefficient Variation 14.2 % (11.7-14.2); RDW Standard Deviation 53.4 fL (35.1-46.3); Red Blood Cell Count 3.62 M/mm3 (4.30-5.90); White Blood Cell Count 12.55 K/mm3 (4.00-11.30)
[2024-05-12 02:37] LABS: International Normalized Ratio 1.03
[2024-05-12 02:45] LABS: Ethanol (Alcohol), Blood, Med <3 mg/dL; Magnesium, Blood 1.7 mg/dL (1.6-2.4); Salicylate <1.7 mg/dL (2.8-20.0)
[2024-05-12 02:46] LABS: Alanine Aminotransfer (ALT/SGP 30 U/L (12-78); Albumin, Blood 3.4 g/dL (3.4-5.0); Albumin/Globulin Ratio 0.8 (0.8-1.8); Alk Phos 91 U/L (50-136); Anion Gap 11 mmol/L (3-11); Aspartate Aminotrans (AST/SGOT 20 U/L (12-37); Bilirubin, Total 0.4 mg/dL (0.1-1.0); Blood Urea Nitrogen 15 mg/dL (8-24); Bun/Creatinine Ratio 11.6 (12.0-20.0); CO2, Blood 25 mmol/L (21-32); Calcium, Blood 8.8 mg/dL (8.5-10.1); Chloride, Blood 109 mmol/L (98-108); Creatinine, Blood 1.29 mg/dL (0.60-1.20); Globulin, Blood 4.1 g/dL (2.2-4.0); Glomerular Filtration Rate 57 (60-); Glucose, Blood 191 mg/dL (70-99); Phosphorus, Blood 1.5 mg/dL (2.5-4.9); Potassium, Blood 3.8 mmol/L (3.5-5.5); Sodium, Blood 141 mmol/L (136-145); Total Protein, Blood 7.5 g/dL (6.4-8.2)
[2024-05-12 02:47] LABS: Acetaminophen, Random <2.0 ug/mL (10.0-30.0)
[2024-05-12 02:47] LABS: Base Excess Venous 0.3 mmol/L; Bicarbonate Venous 24.1 mmol/L (24.0-30.0); PCO2 Venous 42.6 mmHg (38-42); pH Blood Venous 7.38 (7.34-7.37)
[2024-05-12 03:54] LABS: Source, Urine Clean Catch
[2024-05-12 04:03] LABS: Bilirubin, Urine Neg (Neg); Blood, Urine 1+ (Neg); Glucose Qualitative, Urine Neg (Neg); Ketones, Urine Neg (Neg); Leukocyte Esterase, Urine 2+ (Neg); Nitrite, Urine Neg (Neg); Protein, Urine 1+ (Neg); Urobilinogen, Urine NORM (Normal)
[2024-05-12 04:09] LABS: Color, Urine Yellow (P-Yellow)
[2024-05-12 04:15] LABS: Appearance, Urine Clear (Clear)
[2024-05-12 04:16] LABS: Bacteria Rare /hpf; Red Blood Cells, Urine 0-2 /hpf (0-2); Squamous Epithelial Cells Not Seen /hpf (Few)
[2024-05-12 04:35] LABS: U Amphetamine Screen Not Detected; U Barbituate Screen Not Detected; U Benzodiazapine Screen Not Detected; U Buprenorphine Screen Not Detected; U Cannabinoids Screen Not Detected; U Cocaine Screen Not Detected; U Methadone Screen Not Detected; U Methamphetamine Screen Not Detected; U Opiates Screen Not Detected; U Oxycodone Screen Not Detected; U Phencyclidine Screen Not Detected
[2024-05-12] MEDS ORDERED: CefTRIAXone Sodium 1,000 MG in NS 50 ML IV ONE (04:35)
[2024-05-12] MEDS ORDERED: FentaNYL Citrate 50 MCG/ML 2 ML Injection IV ONE (05:00)
[2024-05-12] MEDS ORDERED: FLU VACC TS2024-25(6MOS UP)/PF 45 MCG/0.5 ML SYRINGE IM ONE (05:20)
[2024-05-12] MEDS ORDERED: NS 1,000 ML IV ONE (05:20)
[2024-05-12] MEDS ORDERED: Ondansetron HCl 2 MG / ML 2ML Vial IV PRN (05:20)
[2024-05-12] MEDS ORDERED: Acetaminophen 325 MG TABLET PO PRN (05:25)
[2024-05-12] MEDS ORDERED: Mag Sulfate 1 GM/D5% 100ML 100 ML IV ONE (06:15)
[2024-05-12] MEDS ORDERED: Mupirocin 2% Ointment 22 GM TOP PRN (06:35)
[2024-05-12] MEDS ORDERED: Ipratropium/Albuterol SulF 2.5-0.5MG/3 ML Amp INH PRN (06:35)
[2024-05-12] MEDS ORDERED: Nitroglycerin 0.4 MG SUBL SL PRN (06:35)
[2024-05-12] MEDS ORDERED: Potassium Phosphate Dibasic 30 MM in Dextrose 5% 500 ML IV SCH (09:00)
[2024-05-12] MEDS ORDERED: Enoxaparin 40 MG/0.4 ML SYR SC SCH (09:00)
[2024-05-12] MEDS ORDERED: Clopidogrel Bisulfate 75 MG Tab PO SCH (09:00)
[2024-05-12] MEDS ORDERED: AmLODIPine Besylate 5 MG Tab PO SCH (09:00)
[2024-05-12] MEDS ORDERED: Triamcinolone Acet 0.1% Cream 15 gm TOP PRN (09:00)
[2024-05-12] MEDS ORDERED: Metoprolol Succinate 50 MG TABCR PO SCH (09:00)
[2024-05-12] MEDS ORDERED: Potassium Phosphate Dibasic 15 MM in Dextrose 5% 250 ML IV SCH (14:00)
[2024-05-12] MEDS ORDERED: Mometasone/Formoterol MDI 100/5 mcg 13 GM INH SCH (16:20)
[2024-05-12 16:44] VITALS: BP 129/64
--- NOTE | 2024-05-12 17:51 | NUR ---
SHIFT SUMMARY PT A NEW ADMIT THIS EVENING, MEDICATED FOR NAUSEA UPON ADMIT TO THE FLOOR. ALSO MEDICATED FOR PAIN PER THE EMAR FOR BACK PAIN. NS AND KPHOS INFUSING. RA. REPOSITIONS SELF IN BED. WC AT BASELINE DUE TO L SIDED DEFICITS FROM A PRIOR STROKE. SON AT THE BS, ONLY ABLE TO PROVIDE MINIMAL MEDICATION OR MEDICAL HISTORY. WILL FAX PHARMACY FOR MED LIST. PT ABLE TO MAKE NEEDS KNOWN BUT AOX2-3, MENTATION WAXES AND WANES. USES URINAL INDEPENDENTLY. NO EVENTS PER TELE. CALL LIGHT WITHIN REACH, BED LOCKED AND IN THE LOWEST POSITION. WILL REPORT TO ONCOMING NURSE.
[2024-05-12 21:02] VITALS: BP 87/43
[2024-05-12 21:15] VITALS: BP 112/58
[2024-05-13 00:09] VITALS: BP 103/91
[2024-05-13 04:53] LABS: Base Excess Venous -0.4 mmol/L; Bicarbonate Venous 24.2 mmol/L (24.0-30.0); PCO2 Venous 38.7 mmHg (38-42); pH Blood Venous 7.41 (7.34-7.37)
[2024-05-13 05:13] VITALS: BP 120/54
[2024-05-13 05:29] LABS: BASOPHILS ABSOLUTE AUTO 0.03 K/mm3 (0.00-0.23); BASOPHILS PERCENT AUTO 1 % (0-2); EOSINOPHILS ABSOLUTE AUTO 0.31 K/mm3 (0.00-0.68); EOSINOPHILS PERCENT AUTO 5 % (0-6); Hemoglobin 10.9 g/dL (13.5-17.5); IMMATURE GRAN ABSOLUTE AUTO 0.06 K/mm3 (0.00-0.10); IMMATURE GRAN PERCENT AUTO 1 % (0-1); LYMPHOCYTES ABSOLUTE AUTO 0.91 K/mm3 (0.84-5.20); LYMPHOCYTES PERCENT AUTO 15 % (21-46); MONOCYTES ABSOLUTE AUTO 0.71 K/mm3 (0.16-1.47); MONOCYTES PERCENT AUTO 12 % (4-13); Mean Corpuscular HGB 34.1 pg (26.0-34.0); Mean Corpuscular Volume 103 fL (80-100); Mean Platelet Volume 10.2 fL (9.1-12.4); NEUTROPHILS ABSOLUTE AUTO 4.12 K/mm3 (1.96-9.15); NEUTROPHILS PERCENT AUTO 67 % (41-73); Platelet Count 201 K/mm3 (150-400); RDW Coefficient Variation 14.5 % (11.7-14.2); RDW Standard Deviation 55.1 fL (35.1-46.3); White Blood Cell Count 6.14 K/mm3 (4.00-11.30)
--- NOTE | 2024-05-13 05:39 | NUR ---
MONONITROTOLUENE OPERATOR SUMMARY PT SLEEPY BUT AROUSABLE. LOW BP WITH FIRST SHIFT VITALS. THIS RN RECHECKED WITH MANUAL--BP IMPROVED BUT STILL LOW. WITHHELD BP MEDS AND MONITORED VITALS T/O THE NIGHT. BP STABLE AND WNL. PT URINARY OUTPUT LOW. PT VOIDED 150 MLS THIS AM. POST VOID BLADDER SCAN SHOWED 424MLS. MULTIPLE ATTEMPTS TO VOID UNSUCCESSFUL. CALL TO HOSPITALIST. NEW ORDER TO STRAIGHT CATH AND RESCAN IN 6 HOURS. REPORT GIVEN TO CHARGE NURSE WHO IS ASSUMING PT CARE.
[2024-05-13 05:59] LABS: Albumin, Blood 2.9 g/dL (3.4-5.0); Albumin/Globulin Ratio 0.8 (0.8-1.8); Bilirubin, Total 0.6 mg/dL (0.1-1.0); Bun/Creatinine Ratio 9.3 (12.0-20.0); Calcium, Blood 8.4 mg/dL (8.5-10.1); Creatinine, Blood 1.18 mg/dL (0.60-1.20); Globulin, Blood 3.5 g/dL (2.2-4.0); Magnesium, Blood 2.1 mg/dL (1.6-2.4); Phosphorus, Blood 3.2 mg/dL (2.5-4.9); Total Protein, Blood 6.4 g/dL (6.4-8.2)
[2024-05-13 07:12] VITALS: BP 129/74
[2024-05-13] MEDS ORDERED: CefTRIAXone Sodium 1,000 MG in NS 100 ML IV SCH (09:00)
[2024-05-13] MEDS ORDERED: Tamsulosin HCl 0.4 MG Cap PO SCH (16:00)
--- NOTE | 2024-05-13 16:40 | NUR ---
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 He shares many stories that were entertaining and humorous but also admits his struggles depression and wondering why he is left on the planet. We explore sources of meaning, purpose and connection. I normalize his experience and reinforce helpful attitudes and practices. Patient showed clear signs of an elevated mood and greater hope about his future.
[2024-05-13 16:49] VITALS: BP 126/66
--- NOTE | 2024-05-13 18:22 | NUR ---
SUMMARY- PT A/O X3, PLEASANT AND COOPERATIVE, USES CALL LIGHT. UP TO BSC WITH 1 PIVOT TX GAIT BELT. CONTINT OF URINE USING URINAL TODAY. BLADDER SCANNED ONCE PVR 22ML. TELE SR 60'S, VSS, LUNGS CLEAR. PT WORKED WITH PHYSICAL THERAPY, RECOMMENDATION FOR SNF WITH LIKELY DC TOMORROW. WILL REPORT TO BYRON RN
[2024-05-13 19:35] VITALS: BP 111/68
[2024-05-14] MEDS ORDERED: Misc. Inpatient Respiratory Med INH SCH (01:15)
[2024-05-14 03:24] VITALS: BP 107/51
--- NOTE | 2024-05-14 05:56 | NUR ---
SHIFT SUMMARY: Pt is admitted for acute encephalopathy and is a full code. Is alert and able to make needs known. ADLs have been SBA. denies pain or discomfort with asked. Telly reports sinus in the 70s with a bundle branch.
[2024-05-14 06:38] LABS: Hematocrit 32.5 % (37.0-53.0); Mean Corpuscular HGB 34.5 pg (26.0-34.0); Mean Corpuscular HGB Conc 33.8 g/dL (31.5-36.5); Mean Corpuscular Volume 102 fL (80-100); Mean Platelet Volume 10.7 fL (9.1-12.4); NRBC ABSOLUTE 0.02 K/mm3 (0.00-0.02); NRBC Auto 0.3 /100 WBC (0.0-0.2); Platelet Count 217 K/mm3 (150-400); RDW Coefficient Variation 14.1 % (11.7-14.2); RDW Standard Deviation 51.7 fL (35.1-46.3); Red Blood Cell Count 3.19 M/mm3 (4.30-5.90)
[2024-05-14 06:52] LABS: Albumin, Blood 2.9 g/dL (3.4-5.0); Anion Gap 10 mmol/L (3-11); Blood Urea Nitrogen 14 mg/dL (8-24); Bun/Creatinine Ratio 11.8 (12.0-20.0); CO2, Blood 24 mmol/L (21-32); Calcium, Blood 8.6 mg/dL (8.5-10.1); Chloride, Blood 111 mmol/L (98-108); Creatinine, Blood 1.19 mg/dL (0.60-1.20); Glomerular Filtration Rate 63 (60-); Glucose, Blood 106 mg/dL (70-99); Phosphorus, Blood 2.7 mg/dL (2.5-4.9); Potassium, Blood 4.1 mmol/L (3.5-5.5); Sodium, Blood 141 mmol/L (136-145)
[2024-05-14 07:02] VITALS: BP 106/54
[2024-05-14] MEDS ORDERED: TAMS.4ER PO (10:55)
[2024-05-14] MEDS ORDERED: VISBIOME 112.51 EACH PO (10:56)
--- NOTE | 2024-05-14 14:04 | NUR ---
PT DISCHARGED WITH DC INSTRUCTIONS, WHEELCHAIR OUT TO PRIVATE CAR FOR TRANSPORT HOME.
== END 2024-05-14 14:04 | disposition home health service (06) | DRG 871 ==
LOC: ER 02:03 → ERHOLD 02:04 → MEDS 02:04
PROVIDERS: Emergency Medicine; Family Medicine; Internal Medicine; ADMIT Internal Medicine
DX: A41.9 Sepsis, unspecified organism (principal); G92.8 Other toxic encephalopathy; N39.0 Urinary tract infection, site not specified; E87.20 Acidosis, unspecified; N17.9 Acute kidney failure, unspecified; I47.10 Supraventricular tachycardia, unspecified; I69.954 Hemiplegia and hemiparesis following unspecified cerebrovascular disease affecting left non-dominant side; R65.20 Severe sepsis without septic shock; N40.1 Benign prostatic hyperplasia with lower urinary tract symptoms; R33.8 Other retention of urine; E83.39 Other disorders of phosphorus metabolism; E83.42 Hypomagnesemia; E87.6 Hypokalemia; G89.29 Other chronic pain; E86.0 Dehydration; I25.10 Atherosclerotic heart disease of native coronary artery without angina pectoris; I10 Essential (primary) hypertension; D64.9 Anemia, unspecified; M54.9 Dorsalgia, unspecified; E78.5 Hyperlipidemia, unspecified; Z79.02 Long term (current) use of antithrombotics/antiplatelets; Z79.899 Other long term (current) drug therapy; Z88.5 Allergy status to narcotic agent; Z88.0 Allergy status to penicillin; Z88.8 Allergy status to other drugs, medicaments and biological substances; Z91.048 Other nonmedicinal substance allergy status; Z87.891 Personal history of nicotine dependence; Z90.49 Acquired absence of other specified parts of digestive tract; Z98.890 Other specified postprocedural states; Z87.81 Personal history of (healed) traumatic fracture; Z95.5 Presence of coronary angioplasty implant and graft
CPT/HCPCS: 36415; 51701; 70450; 70496; 70498; 71045; 72125; 80053; 80069; 80320; 81001; 82140; 82550; 82803; 82947; 83605; 83690; 83735; 83880; 83930; 84100; 84443; 84484; 85025; 85027; 85610; 85730; 87040; 87077; 87086; 93005; 93010; 93306; 94640; 94664; 94760; 96365-59; 96366; 96367; 96372; 96372-59; 96375-59; 96376; 97112; 97116; 97161; 97165; 97530; 99285-25; A9270; G0378; G0480; J0696; J1650; J2405; J3010; J3475; J7030; J7060; Q9967

== ENCOUNTER → 2024-05-20 | Outpatient (CLI) | payer OTHER ==
[~2024-05-20] MED LIST changes: +VISBIOME 112.51 EACH PO
== END | disposition home or self-care (01) ==
LOC: LAB 11:20 → LAB SHORT 11:20
DX: R30.0 Dysuria (principal)
CPT/HCPCS: 87086

== ENCOUNTER 2024-06-03 01:10 | Emergency (ER) | payer OTHER ==
[~2024-06-03] VITALS: Ht 182.9 cm; Wt 90.7 kg
[2024-06-03] MEDS ORDERED: SULFAMETHOXAZO1 EAC1 PO (01:35)
[2024-06-03] MEDS ORDERED: NS 1,000 ML IV SCH (02:30)
[2024-06-03 02:35] LABS: Source, Urine Clean Catch
[2024-06-03 02:38] LABS: Bilirubin, Urine Neg (Neg); Blood, Urine 1+ (Neg); Glucose Qualitative, Urine Neg (Neg); Ketones, Urine Neg (Neg); Leukocyte Esterase, Urine Neg (Neg); Nitrite, Urine Neg (Neg); Protein, Urine Neg (Neg); Urobilinogen, Urine NORM (Normal)
[2024-06-03 03:02] LABS: Appearance, Urine Clear (Clear); Color, Urine Yellow (P-Yellow); Red Blood Cells, Urine 0-2 /hpf (0-2); White Blood Cells, Urine 0-2 /hpf (0-5)
[2024-06-03 03:03] LABS: Bacteria Few /hpf; Squamous Epithelial Cells Few /hpf (Few)
[2024-06-03 03:19] LABS: BASOPHILS ABSOLUTE AUTO 0.07 K/mm3 (0.00-0.23); BASOPHILS PERCENT AUTO 1 % (0-2); EOSINOPHILS PERCENT AUTO 2 % (0-6); Hematocrit 33.9 % (37.0-53.0); Hemoglobin 11.9 g/dL (13.5-17.5); IMMATURE GRAN ABSOLUTE AUTO 0.14 K/mm3 (0.00-0.10); IMMATURE GRAN PERCENT AUTO 1 % (0-1); LYMPHOCYTES ABSOLUTE AUTO 2.41 K/mm3 (0.84-5.20); LYMPHOCYTES PERCENT AUTO 19 % (21-46); MONOCYTES ABSOLUTE AUTO 1.08 K/mm3 (0.16-1.47); MONOCYTES PERCENT AUTO 8 % (4-13); Mean Corpuscular HGB 34.7 pg (26.0-34.0); Mean Corpuscular HGB Conc 35.1 g/dL (31.5-36.5); Mean Corpuscular Volume 99 fL (80-100); Mean Platelet Volume 9.6 fL (9.1-12.4); NEUTROPHILS ABSOLUTE AUTO 8.99 K/mm3 (1.96-9.15); NEUTROPHILS PERCENT AUTO 70 % (41-73); NRBC ABSOLUTE 0.02 K/mm3 (0.00-0.02); NRBC Auto 0.2 /100 WBC (0.0-0.2); Platelet Count 278 K/mm3 (150-400); RDW Coefficient Variation 14.4 % (11.7-14.2); RDW Standard Deviation 51.3 fL (35.1-46.3); Red Blood Cell Count 3.43 M/mm3 (4.30-5.90); White Blood Cell Count 12.89 K/mm3 (4.00-11.30)
[2024-06-03 03:40] LABS: Albumin, Blood 3.7 g/dL (3.4-5.0); Bilirubin, Total 0.4 mg/dL (0.1-1.0); Bun/Creatinine Ratio 15.7 (12.0-20.0); Calcium, Blood 9.5 mg/dL (8.5-10.1); Creatinine, Blood 1.15 mg/dL (0.60-1.20); Globulin, Blood 3.8 g/dL (2.2-4.0); Potassium, Blood 3.7 mmol/L (3.5-5.5); Total Protein, Blood 7.5 g/dL (6.4-8.2)
[2024-06-03] MEDS ORDERED: Acetaminophen 500 MG Tab PO ONE (04:00)
[2024-06-03 04:07] VITALS: BP 118/53
== END 2024-06-03 04:20 | disposition home or self-care (01) ==
LOC: ER 01:10
PROVIDERS: Emergency Medicine; Physician Assistant
DX: R33.9 Retention of urine, unspecified (principal); Z46.6 Encounter for fitting and adjustment of urinary device; I10 Essential (primary) hypertension; Z86.73 Personal history of transient ischemic attack (TIA), and cerebral infarction without residual deficits; Z87.891 Personal history of nicotine dependence; Z79.51 Long term (current) use of inhaled steroids; Z79.899 Other long term (current) drug therapy; Z88.0 Allergy status to penicillin; Z91.048 Other nonmedicinal substance allergy status; Z88.5 Allergy status to narcotic agent; Z88.8 Allergy status to other drugs, medicaments and biological substances; Z88.1 Allergy status to other antibiotic agents
CPT/HCPCS: 51702; 51798; 80053; 81001; 85025; 99283; A9270; J7030

== ENCOUNTER → 2024-06-05 | Outpatient (CLI) | payer OTHER ==
[~2024-06-05] MED LIST changes: +Betamethasone D15 G1 TOP; +FLUT1DIS2 INH; -FLUTICASONE-SA1 EA11 INH; +SULFAMETHOXAZO1 EAC1 PO; -TRIA15CR3; +TRIA15CR3 TOP
== END ==
LOC: LAB 15:55 → LAB SHORT 15:55
DX: R39.11 Hesitancy of micturition (principal)
CPT/HCPCS: 87086

== ENCOUNTER 2024-06-11 19:25 | Observation (INO) | payer OTHER ==
[~2024-06-11] VITALS: Ht 180.3 cm; Wt 94.2 kg
[~2024-06-11 19:25] MED LIST changes: -Betamethasone D15 G1 TOP
[2024-06-11 20:24] LABS: BASOPHILS ABSOLUTE AUTO 0.05 K/mm3 (0.00-0.23); BASOPHILS PERCENT AUTO 1 % (0-2); EOSINOPHILS ABSOLUTE AUTO 0.25 K/mm3 (0.00-0.68); EOSINOPHILS PERCENT AUTO 2 % (0-6); Hematocrit 32.9 % (37.0-53.0); Hemoglobin 11.4 g/dL (13.5-17.5); IMMATURE GRAN ABSOLUTE AUTO 0.13 K/mm3 (0.00-0.10); IMMATURE GRAN PERCENT AUTO 1 % (0-1); LYMPHOCYTES PERCENT AUTO 10 % (21-46); MONOCYTES ABSOLUTE AUTO 0.69 K/mm3 (0.16-1.47); MONOCYTES PERCENT AUTO 7 % (4-13); Mean Corpuscular HGB Conc 34.7 g/dL (31.5-36.5); Mean Corpuscular Volume 101 fL (80-100); Mean Platelet Volume 9.9 fL (9.1-12.4); NEUTROPHILS ABSOLUTE AUTO 8.47 K/mm3 (1.96-9.15); NEUTROPHILS PERCENT AUTO 79 % (41-73); Platelet Count 220 K/mm3 (150-400); RDW Coefficient Variation 14.4 % (11.7-14.2); RDW Standard Deviation 53.3 fL (35.1-46.3); Red Blood Cell Count 3.26 M/mm3 (4.30-5.90); White Blood Cell Count 10.69 K/mm3 (4.00-11.30)
[2024-06-11 20:43] LABS: Albumin, Blood 3.3 g/dL (3.4-5.0); Albumin/Globulin Ratio 0.9 (0.8-1.8); Bilirubin, Total 0.4 mg/dL (0.1-1.0); Bun/Creatinine Ratio 16.5 (12.0-20.0); Calcium, Blood 8.7 mg/dL (8.5-10.1); Creatinine, Blood 1.09 mg/dL (0.60-1.20); Globulin, Blood 3.7 g/dL (2.2-4.0); International Normalized Ratio 1.02; Potassium, Blood 3.8 mmol/L (3.5-5.5); Prothrombin Time Results 10.9 Sec (9.7-11.5)
[2024-06-11 20:52] LABS: CORONAVIRUS COVID-19 AG Negative (NEGATIVE); INFLUENZA A AG Negative (NEGATIVE); INFLUENZA B AG Negative (NEGATIVE)
[2024-06-11] MEDS ORDERED: Aspirin 81 MG Chew PO ONE (21:00)
[2024-06-11 22:49] LABS: Source, Urine Clean Catch
[2024-06-11 22:54] LABS: Bilirubin, Urine Neg (Neg); Blood, Urine Neg (Neg); Glucose Qualitative, Urine Neg (Neg); Ketones, Urine Neg (Neg); Leukocyte Esterase, Urine Neg (Neg); Nitrite, Urine Neg (Neg); Protein, Urine Neg (Neg); Specific Gravity, Urine 1.015 (1.003-1.022); Urobilinogen, Urine NORM (Normal)
[2024-06-11 23:14] LABS: Appearance, Urine Clear (Clear); Color, Urine Pale Yellow (P-Yellow)
[2024-06-12] MEDS ORDERED: Clopidogrel Bisulfate 75 MG Tab PO SCH (01:50)
[2024-06-12] MEDS ORDERED: NS 1,000 ML IV SCH (01:55)
[2024-06-12 06:39] LABS: BASOPHILS ABSOLUTE AUTO 0.05 K/mm3 (0.00-0.23); BASOPHILS PERCENT AUTO 1 % (0-2); EOSINOPHILS ABSOLUTE AUTO 0.44 K/mm3 (0.00-0.68); EOSINOPHILS PERCENT AUTO 5 % (0-6); Hematocrit 30.3 % (37.0-53.0); Hemoglobin 10.6 g/dL (13.5-17.5); IMMATURE GRAN ABSOLUTE AUTO 0.08 K/mm3 (0.00-0.10); IMMATURE GRAN PERCENT AUTO 1 % (0-1); LYMPHOCYTES ABSOLUTE AUTO 2.05 K/mm3 (0.84-5.20); LYMPHOCYTES PERCENT AUTO 24 % (21-46); MONOCYTES ABSOLUTE AUTO 0.79 K/mm3 (0.16-1.47); MONOCYTES PERCENT AUTO 9 % (4-13); Mean Corpuscular HGB 35.5 pg (26.0-34.0); Mean Corpuscular Volume 101 fL (80-100); Mean Platelet Volume 10.3 fL (9.1-12.4); NEUTROPHILS ABSOLUTE AUTO 5.03 K/mm3 (1.96-9.15); NEUTROPHILS PERCENT AUTO 60 % (41-73); NRBC ABSOLUTE 0.02 K/mm3 (0.00-0.02); NRBC Auto 0.2 /100 WBC (0.0-0.2); Platelet Count 220 K/mm3 (150-400); RDW Coefficient Variation 14.5 % (11.7-14.2); RDW Standard Deviation 53.1 fL (35.1-46.3); Red Blood Cell Count 2.99 M/mm3 (4.30-5.90); White Blood Cell Count 8.44 K/mm3 (4.00-11.30)
[2024-06-12 07:08] LABS: Albumin/Globulin Ratio 0.9 (0.8-1.8); Bilirubin, Total 0.6 mg/dL (0.1-1.0); Bun/Creatinine Ratio 14.5 (12.0-20.0); Calcium, Blood 8.8 mg/dL (8.5-10.1); Creatinine, Blood 1.1 mg/dL (0.60-1.20); Globulin, Blood 3.5 g/dL (2.2-4.0); Potassium, Blood 3.7 mmol/L (3.5-5.5); Total Protein, Blood 6.5 g/dL (6.4-8.2)
[2024-06-12] MEDS ORDERED: Aspirin 325 MG Tab PO SCH (09:00)
[2024-06-12] MEDS ORDERED: Enoxaparin 40 MG/0.4 ML SYR SC SCH (09:00)
--- NOTE | 2024-06-12 09:30 | NUR ---
pt arrived to [facility] via [place] from ED, pt son in attendence, pt has slurred speach, but is oriented, son states he basically lives alone and is wheelchair bound but he checks on him daily, lungs are dim but clear t/o, resp even and unlabored, no cough noted, on r/a, hrr, distant, no edema noted, ppp+1, cap refill< 3 sec, vs stable, afebrile, piv to rfa site is clear and patent, btx4, abd flat soft nontender, voids without diff, skin c/w/d, maew, parminder, oriented to room layout and call sytem, call light in reach.
[2024-06-12 09:47] VITALS: BP 135/67
--- NOTE | 2024-06-12 10:26 | NUR ---
pt left for mri via gurney.
[2024-06-12 15:11] VITALS: BP 118/59
[2024-06-12] MEDS ORDERED: Ketorolac Tromethamine 10 MG Tab PO PRN (17:40)
--- NOTE | 2024-06-12 18:06 | NUR ---
PATIENT IS ALERT AND ORIENTED AND COOPERATIVE WITH CARE. SLEPT BETWEEN MEALS. WORKED WITH PT TODAY. ON RA. LEFT SIDED WEAKNESS. UPDATE GIVEN TO THE SON THIS EVENING. DR. CALVO SAW THE PATIENT THIS EVENING WHILE RN AT THE BEDSIDE AND ORDERS PLACED. PT C/O RIGHT SIDED RIB PAIN WHEN TURNING IN BED. USES THE URINAL WITH ASSISTANCE. ATTENDS IN PLACE. PATIENT ATE ALL OF HIS LUNCH TODAY. WILL CONTINUE TO MONITOR
[2024-06-12 19:31] VITALS: BP 140/66
[2024-06-12] MEDS ORDERED: Tamsulosin HCl 0.4 MG Cap PO SCH (21:00)
[2024-06-13 04:20] VITALS: BP 108/53
--- NOTE | 2024-06-13 06:29 | NUR ---
SHIFT SUMMARY PT A&O, MUMBLED SPEECH, LEFT SIDED FACIAL DROOP, AND LEFT SIDED WEAKNESS. PT VERBALIZED FRUSTRATION WITH HIS NEED FOR ASSISTANCE WITH AMBULATION, AND ADL'S. 1 PERSON ASSIST WITH FWW/ GAITBELT. PT CAN ONLY AMBULATE SHORT DISTANCE BEFORE HIS LEGS GET INCREASINGLY WEAK. SLEPT LONG INTERVALS THROUGH THE NIGHT. BED IN LOWEST POSITION, CALL LIGHT WITHIN REACH, SIDE RAILS UP X2. PT CURRENTLY SITTING AT EDGE OF BED DRINKING COFFEE.
[2024-06-13 07:26] VITALS: BP 125/71
[2024-06-13] MEDS ORDERED: Calcium Carbonate 500 MG Tab Chew PO PRN (11:55)
--- NOTE | 2024-06-13 13:56 | NUR ---
CALL WITH SON SON VOICING CONCERNS FOR PATIENT RETURNING HOME ALONE. STATES HE BELIEVES PATIENT IS HAVING DIFFICULTY WITH MEDICATION MANAGMENT. STATES PATIENT CHANGES THE TIMING OF HIS MEDICATIONS FREQUENTLY AND IS RESISTANT TO LETTING FAMILY ASSIST WITH THIS. SON STATES THAT PATIENT STILL DRIVES BUT HAS DIFFICULTY RECENTLY GETTING HIS WHEELCHAIR INTO THE VEHICLE IT'S NOT WC ACCESSIBLE. SON STATES THAT HIMSELF AND HIS SISTER ARE AVAILABLE TO ASSIST PATIENT NEEDED AND PATIENT ALLOWS.
[2024-06-13 15:36] VITALS: BP 139/66
--- NOTE | 2024-06-13 18:36 | NUR ---
SHIFT SUMMARY PATIENT IN BED MOST OF SHIFT. USING URINAL, NO BM. DISCUSSED GOING TO SOMEWHERE FOR REHAB, PATIENT NOT AGREEABLE FROM THIS CONVERSATION. L SIDE DEFICITS PERSIST, NO ACUTE CHANGES FROM THIS AM. NOT TOLERATING ALTERED TEXTURE DIET, DECLINING SOME MEALS BECAUSE OF THIS. REQUESTED TUMS FOR HEARTBURN, LATER DECLINED NEED. A/OX4. ABLE TO MAKE NEEDS KNOWN. CALL LIGHT IN REACH, CARES ONGOING.
[2024-06-13 19:40] VITALS: BP 128/69
[2024-06-13] MEDS ORDERED: Famotidine 20 MG Tab PO SCH (21:00)
[2024-06-13] MEDS ORDERED: Betamethasone D15 G1 TOP (22:34)
[2024-06-14 05:10] VITALS: BP 108/50
--- NOTE | 2024-06-14 05:51 | NUR ---
SHIFT SUMMARY PT SLEPT LONG INTERVALS THROUGH THE NIGHT. AMBULATED TO BATHROOM WITH FWW, GAIT BELT, AND 1 ASSIST. PT VERBALIZING MUCH FRUSTRATION WITH HIS PHYSICAL LIMITATIONS. SPEECH REMAINS MUMBLED, LEFT FACIAL DROOP CONTINUES. BED IN LOWEST POSITION, CALL LIGHT WITHIN REACH, SIDE RAILS UP X2.
[2024-06-14 07:39] VITALS: BP 114/57
[2024-06-14] MEDS ORDERED: Aspirin 81 MG Chew PO SCH (09:00)
--- NOTE | 2024-06-14 11:11 | NUR ---
MORNING NOTE THIS RN ASSUMED CARE AT APPROX 0715. PATIENT SLEEPING, EASILY AROUSABLE WITH VERBAL STIMULI. VSS. ALERT AND ORIENTED X4. MUMBLED SPEECH - COMMUNICATES NEEDS EFFECTIVELY. L SIDED WEAKNESS - UP WITH 1P ASSIST FWW GB. SHOWERED THIS MORNING WITH MINIMAL ASSIST FROM STAFF. REPORTING GENERALIZED ARTHRITIS PAIN T/O - MEDICATED PER EMAR WITH RELIEF. CONTINENT OF URINE - USES URINAL AT BEDSIDE. CALL LIGHT IN REACH.
[2024-06-14] MEDS ORDERED: Doxycycline Hyclate 100 MG TAB PO SCH (13:00)
[2024-06-14] MEDS ORDERED: Misc. Topical TOP SCH ×2 (13:05→14:30)
--- NOTE | 2024-06-14 13:06 | NUR ---
PATIENTs SON BROUGHT IN HOME BETAMETHASONE DIPROPIONATE OINTMENT 0.05% FOR SKIN IRRITATION. MD CALVO CONTACTED - RECEIVED ORDER FOR USE WHILE IN HOSPITAL PRESCRIBED. ORDER IN PLACE FOR BETAMETHASONE DIPROPINATE OINTMENT 0.05% BID STARTING NOW. WILL ADMINISTER PER EMAR FOLLOWING PHARMACY VERIFICATION.
[2024-06-14] MEDS ORDERED: Betamethasone Dip 0.05% Cream 15 gm TOP SCH (13:10)
[2024-06-14 15:47] VITALS: BP 130/76
--- NOTE | 2024-06-14 17:37 | NUR ---
SHIFT SUMMARY NO ACUTE CHANGES SINCE MORNING NOTE. PATIENT REMAINS ALERT AND ORIENTED X4. NO NEURO CHANGES NOTED - MUMBLED SPEECH, L SIDED WEAKNESS, SLIGHT L SIDED FACIAL DROOP. PERRLA. UP WITH 1P ASSIST FWW GB. SHOWERED TODAY. VSS. SBP 110s-130s. MAP >65. DENIES CHEST PAIN, PRESSURE. REMAINS ON ROOM AIR, SATs >90%. RR EVEN, UNLABORED. VOIDING. MANAGING GENERALIZED ARTHRITIS PAIN PER EMAR. CALL LIGHT IN REACH. MULTIPLE VISITORS AT BEDSIDE THROUGHOUT DAY. WILL CONTINUE TO MONITOR AND REPORT TO ONCOMING RN.
[2024-06-14 20:02] VITALS: BP 135/76
[2024-06-15 04:29] VITALS: BP 122/71
[2024-06-15 04:52] LABS: Hematocrit 30.9 % (37.0-53.0); Hemoglobin 10.7 g/dL (13.5-17.5); Mean Corpuscular HGB 34.5 pg (26.0-34.0); Mean Corpuscular HGB Conc 34.6 g/dL (31.5-36.5); Mean Corpuscular Volume 100 fL (80-100); Mean Platelet Volume 10.2 fL (9.1-12.4); Platelet Count 209 K/mm3 (150-400); RDW Coefficient Variation 13.9 % (11.7-14.2); RDW Standard Deviation 50.5 fL (35.1-46.3); White Blood Cell Count 7.86 K/mm3 (4.00-11.30)
--- NOTE | 2024-06-15 05:22 | NUR ---
SHIFT SUMMARY PT CONTINUES TO HAVE LEFT SIDED FACIAL DROOP, SLURRED SPEECH, AND BASELINE LEFT SIDED WEAKNESS. ABLE TO TURN SELF IN BED AND SIT AT EDGE OF BED, OOB WITH FWW AND 1 ASSIST. PT WITH NEW SCRATCH PATEL/ SCABS SCATTERED THROUGHOUT, MEDICATED WITH OINTMENT PER EMAR. PT C/O BACK PAIN- HEATING PAD PROVIDED AND MEDICATED WITH TORADOL PER EMAR. PT SLEPT LONG INTERVALS DURING THE NIGHT. VERBALIZING FRUSTRATION WITH FOOD TEXTURE OF ORDERED DIET. BED IN LOWEST POSITION, CALL LIGHT WITHIN REACH, SIDERAILS UP X2.
[2024-06-15 05:27] LABS: Albumin, Blood 3.1 g/dL (3.4-5.0); Anion Gap 10 mmol/L (3-11); Blood Urea Nitrogen 14 mg/dL (8-24); Bun/Creatinine Ratio 12.2 (12.0-20.0); CO2, Blood 24 mmol/L (21-32); Calcium, Blood 8.6 mg/dL (8.5-10.1); Chloride, Blood 112 mmol/L (98-108); Creatinine, Blood 1.15 mg/dL (0.60-1.20); Glomerular Filtration Rate 66 (60-); Glucose, Blood 105 mg/dL (70-99); Phosphorus, Blood 2.4 mg/dL (2.5-4.9); Potassium, Blood 3.9 mmol/L (3.5-5.5); Sodium, Blood 142 mmol/L (136-145)
[2024-06-15 07:54] VITALS: BP 110/58
[2024-06-15] MEDS ORDERED: Bisacodyl 5 MG TabEC PO PRN (13:55)
[2024-06-15] MEDS ORDERED: Sennosides 8.6 MG Tab PO SCH (14:00)
[2024-06-15] MEDS ORDERED: Polyethylene Glycol 3350 17 gm PO ONE (14:00)
[2024-06-15] MEDS ORDERED: Polyethylene Glycol 3350 17 gm PO PRN (14:00)
[2024-06-15] MEDS ORDERED: ASPI81CH PO (15:37)
[2024-06-15] MEDS ORDERED: FAMO20 PO (15:38)
[2024-06-15] MEDS ORDERED: DOXY100 PO (15:38)
[2024-06-15] MEDS ORDERED: MIRALAX17 GM PO (15:39)
[2024-06-15] MEDS ORDERED: SENN187 PO (15:39)
[2024-06-15 16:04] VITALS: BP 151/84
--- NOTE | 2024-06-15 17:33 | NUR ---
DISCHARGE: PT D/C @2065 VIA WHEELCHAIR WITH SON. MEDICATIONS FAXED TO [facility]. 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 EXPLAINED TO PATIENT AGAIN IMPORTANCE OF NOT DRIVING UNTIL CLEARED BY PCP. PT AWARE TO MAKE FOLLOW-UP APPOINTMENT WITH PCP WITHIN ONE WEEK. IV REMOVED BY CERAMIC CHEMIST W/O COMPLICATIONS. NO QUESTIONS AT TIME OF D/C.
== END 2024-06-15 17:46 | disposition home or self-care (01) ==
LOC: ER 19:25 → ERHOLD 19:26 → MEDS 19:26 → ENPENDDIS 06-15 15:06 → MEDS 06-15 17:46
PROVIDERS: Internal Medicine; Student in an Organized Health Care Education/Training Program; ADMIT Internal Medicine
DX: G45.9 Transient cerebral ischemic attack, unspecified (principal); M48.02 Spinal stenosis, cervical region; G47.33 Obstructive sleep apnea (adult) (pediatric); J44.9 Chronic obstructive pulmonary disease, unspecified; I25.10 Atherosclerotic heart disease of native coronary artery without angina pectoris; G93.40 Encephalopathy, unspecified; D64.89 Other specified anemias; Z79.899 Other long term (current) drug therapy; Z88.0 Allergy status to penicillin; Z88.5 Allergy status to narcotic agent; Z88.8 Allergy status to other drugs, medicaments and biological substances
CPT/HCPCS: 36415; 70450; 70496; 70498; 70551; 71045; 80053; 80069; 81003; 83735; 83880; 84484; 85025; 85027; 85610; 85730; 86850; 86900; 86901; 87428-QW; 92526; 92610; 93005; 93010; 96372; 97110; 97112; 97161; 99285-25; A9270; G0378; J1650; J7030; Q9967

== ENCOUNTER 2024-07-18 19:26 | Emergency (ER) | payer OTHER ==
[~2024-07-18] VITALS: Ht 185.4 cm; Wt 122.5 kg
[~2024-07-18 19:26] MED LIST changes: +ALMACONE SUSPE355 ML PO; +Betamethasone D15 G1 TOP
[2024-07-18 19:48] LABS: BASOPHILS ABSOLUTE AUTO 0.05 K/mm3 (0.00-0.23); BASOPHILS PERCENT AUTO 0 % (0-2); EOSINOPHILS ABSOLUTE AUTO 0.28 K/mm3 (0.00-0.68); EOSINOPHILS PERCENT AUTO 2 % (0-6); Hematocrit 36.3 % (37.0-53.0); Hemoglobin 12.4 g/dL (13.5-17.5); IMMATURE GRAN ABSOLUTE AUTO 0.13 K/mm3 (0.00-0.10); IMMATURE GRAN PERCENT AUTO 1 % (0-1); LYMPHOCYTES ABSOLUTE AUTO 1.71 K/mm3 (0.84-5.20); LYMPHOCYTES PERCENT AUTO 12 % (21-46); MONOCYTES ABSOLUTE AUTO 0.87 K/mm3 (0.16-1.47); MONOCYTES PERCENT AUTO 6 % (4-13); Mean Corpuscular HGB 34.9 pg (26.0-34.0); Mean Corpuscular HGB Conc 34.2 g/dL (31.5-36.5); Mean Corpuscular Volume 102 fL (80-100); Mean Platelet Volume 10.2 fL (9.1-12.4); NEUTROPHILS ABSOLUTE AUTO 11.69 K/mm3 (1.96-9.15); NEUTROPHILS PERCENT AUTO 79 % (41-73); Platelet Count 285 K/mm3 (150-400); RDW Coefficient Variation 14.9 % (11.7-14.2); RDW Standard Deviation 55.9 fL (35.1-46.3); Red Blood Cell Count 3.55 M/mm3 (4.30-5.90); White Blood Cell Count 14.73 K/mm3 (4.00-11.30)
[2024-07-18 20:07] LABS: Alanine Aminotransfer (ALT/SGP 33 U/L (12-78); Alk Phos 84 U/L (50-136); Anion Gap 10 mmol/L (3-11); Aspartate Aminotrans (AST/SGOT 19 U/L (12-37); Bilirubin, Total 0.6 mg/dL (0.1-1.0); Blood Urea Nitrogen 12 mg/dL (8-24); Bun/Creatinine Ratio 12.2 (12.0-20.0); CO2, Blood 23 mmol/L (21-32); Calcium, Blood 9.2 mg/dL (8.5-10.1); Chloride, Blood 112 mmol/L (98-108); Creatinine, Blood 0.98 mg/dL (0.60-1.20); Globulin, Blood 3.9 g/dL (2.2-4.0); Glomerular Filtration Rate 79 (60-); Glucose, Blood 123 mg/dL (70-99); Potassium, Blood 3.9 mmol/L (3.5-5.5); Sodium, Blood 141 mmol/L (136-145); Total Protein, Blood 7.9 g/dL (6.4-8.2)
[2024-07-18] MEDS ORDERED: Prochlorperazine Edisylate 10 mg Vial IV ONE (21:10)
[2024-07-18 21:25] LABS: Bilirubin, Direct 0.2 mg/dL (0.0-0.3); Bilirubin, Indirect 0.4 mg/dL (0.1-0.7); Ethanol (Alcohol), Blood, Med <3 mg/dL
[2024-07-18] MEDS ORDERED: Famotidine 10 MG/ML 2ML Vial IV ONE (23:00)
[2024-07-18] MEDS ORDERED: Lidocaine 2% Viscous Soln 15 ML UDC PO ONE (23:00)
[2024-07-18] MEDS ORDERED: Mag Hydrox/AL Hydrox/Simeth 30 ML UDC PO ONE (23:00)
[2024-07-19] VITALS: BP 135/73
[2024-07-19 00:08] LABS: CORONAVIRUS COVID-19 AG Negative (NEGATIVE); INFLUENZA A AG Negative (NEGATIVE); INFLUENZA B AG Negative (NEGATIVE)
== END 2024-07-19 00:30 | disposition home or self-care (01) ==
LOC: ER 19:26
PROVIDERS: Student in an Organized Health Care Education/Training Program
DX: K21.9 Gastro-esophageal reflux disease without esophagitis (principal); I10 Essential (primary) hypertension; E78.5 Hyperlipidemia, unspecified; G47.33 Obstructive sleep apnea (adult) (pediatric); Z87.891 Personal history of nicotine dependence; Z86.73 Personal history of transient ischemic attack (TIA), and cerebral infarction without residual deficits; Z79.82 Long term (current) use of aspirin; Z79.899 Other long term (current) drug therapy; Z79.51 Long term (current) use of inhaled steroids; Z79.02 Long term (current) use of antithrombotics/antiplatelets; Z88.0 Allergy status to penicillin; Z91.048 Other nonmedicinal substance allergy status; Z88.5 Allergy status to narcotic agent
CPT/HCPCS: 71045; 80053; 80320; 82248; 84484; 85025; 85379; 87428-QW; 93005; 93010; 96374; 96375; 99285-25; A9270; J0780

== ENCOUNTER 2024-09-30 10:18 | Emergency (ER) | payer OTHER ==
[~2024-09-30] VITALS: Ht 188 cm; Wt 104.3 kg
[2024-09-30 10:21] VITALS: BP 173/80
[2024-09-30 10:43] LABS: BASOPHILS ABSOLUTE AUTO 0.05 K/mm3 (0.00-0.23); BASOPHILS PERCENT AUTO 1 % (0-2); EOSINOPHILS ABSOLUTE AUTO 0.43 K/mm3 (0.00-0.68); EOSINOPHILS PERCENT AUTO 4 % (0-6); Hematocrit 32.9 % (37.0-53.0); Hemoglobin 11.1 g/dL (13.5-17.5); IMMATURE GRAN PERCENT AUTO 1 % (0-1); LYMPHOCYTES ABSOLUTE AUTO 1.68 K/mm3 (0.84-5.20); LYMPHOCYTES PERCENT AUTO 16 % (21-46); MONOCYTES ABSOLUTE AUTO 0.77 K/mm3 (0.16-1.47); MONOCYTES PERCENT AUTO 8 % (4-13); Mean Corpuscular HGB 34.3 pg (26.0-34.0); Mean Corpuscular HGB Conc 33.7 g/dL (31.5-36.5); Mean Corpuscular Volume 102 fL (80-100); NEUTROPHILS ABSOLUTE AUTO 7.24 K/mm3 (1.96-9.15); NEUTROPHILS PERCENT AUTO 70 % (41-73); NRBC ABSOLUTE 0.02 K/mm3 (0.00-0.02); NRBC Auto 0.2 /100 WBC (0.0-0.2); Platelet Count 268 K/mm3 (150-400); RDW Coefficient Variation 14.3 % (11.7-14.2); RDW Standard Deviation 52.8 fL (35.1-46.3); Red Blood Cell Count 3.24 M/mm3 (4.30-5.90); White Blood Cell Count 10.27 K/mm3 (4.00-11.30)
[2024-09-30 10:51] LABS: International Normalized Ratio 1.07; Prothrombin Time Results 11.4 Sec (9.7-11.5)
[2024-09-30 11:07] LABS: Albumin, Blood 3.9 g/dL (3.4-5.0); Albumin/Globulin Ratio 1.1 (0.8-1.8); Bilirubin, Total 0.9 mg/dL (0.1-1.0); Bun/Creatinine Ratio 17.5 (12.0-20.0); Calcium, Blood 8.9 mg/dL (8.5-10.1); Creatinine, Blood 1.03 mg/dL (0.60-1.20); Globulin, Blood 3.6 g/dL (2.2-4.0); Total Protein, Blood 7.5 g/dL (6.4-8.2)
[2024-09-30] MEDS ORDERED: FentaNYL Citrate 50 MCG/ML 2 ML Injection IV ONE (11:25)
[2024-09-30] MEDS ORDERED: SUMA25 PO (13:03)
[2024-09-30] MEDS ORDERED: ALBU90OI INH (13:03)
[2024-09-30] MEDS ORDERED: LISI5 PO (13:03)
[2024-09-30] MEDS ORDERED: DICLOFENAC SOD100 GM TP (13:03)
== END 2024-09-30 14:30 | disposition home or self-care (01) ==
LOC: ER 10:18
PROVIDERS: Student in an Organized Health Care Education/Training Program
DX: S06.0X1A Concussion with loss of consciousness of 30 minutes or less, initial encounter (principal); I10 Essential (primary) hypertension; I25.10 Atherosclerotic heart disease of native coronary artery without angina pectoris; E78.5 Hyperlipidemia, unspecified; G47.33 Obstructive sleep apnea (adult) (pediatric); N40.0 Benign prostatic hyperplasia without lower urinary tract symptoms; J44.9 Chronic obstructive pulmonary disease, unspecified; Z86.73 Personal history of transient ischemic attack (TIA), and cerebral infarction without residual deficits; Z87.891 Personal history of nicotine dependence; Z88.0 Allergy status to penicillin; Z88.1 Allergy status to other antibiotic agents; Z88.5 Allergy status to narcotic agent; Z88.8 Allergy status to other drugs, medicaments and biological substances; Z91.048 Other nonmedicinal substance allergy status; Z79.01 Long term (current) use of anticoagulants; Z79.51 Long term (current) use of inhaled steroids; Z79.82 Long term (current) use of aspirin; Z79.899 Other long term (current) drug therapy; W18.09XA Striking against other object with subsequent fall, initial encounter
CPT/HCPCS: 70450; 72125; 72128; 72131; 80053; 85025; 85610; 93005; 93010; 96374; 99285-25; J3010